=== PATIENT | female | born 1945 | race Caucasian/White ===

== ENCOUNTER 2016-03-12 17:33 | Emergency (ER) | payer OTHER ==
[~2016-03-12] VITALS: Ht 175.3 cm; Wt 100.0 kg
[~2016-03-12 17:33] MED LIST: 1-ME1LIQ PO; ADVAI500I PO; ATOR40TA PO; BACL20 PO; CARV6.25 PO; CLON.2 PO; FLAG500T PO; FURO20 PO; HYDRA50 PO; JANU100T PO; LEVA750T PO; LISI20 PO; LORTA5 PO; LOSA25 PO; PERC10TA27 PO; PLAV75TA PO; PRIL20CA PO; REST0.05 EACH EYE; TRIA.1%T TOP; Z.0.OXYGENDME NC
[2016-03-12 17:38] VITALS: BP 243/103; PULSE 66; RESP 28; TEMP 97.5; O2SAT 95
[2016-03-12 18:30] VITALS: BP 188/100; PULSE 56; RESP 20; O2SAT 96
[2016-03-12] MEDS ORDERED: LISI-515 PO (18:44)
[2016-03-12] MEDS ORDERED: BACL10TA PO (18:44)
[2016-03-12] MEDS ORDERED: PLAV75TA29 PO (18:44)
[2016-03-12] MEDS ORDERED: ADVA500A INH (18:44)
[2016-03-12] MEDS ORDERED: LIPI40TA PO (18:44)
[2016-03-12] MEDS ORDERED: FURO1TAB62 PO (18:44)
[2016-03-12] MEDS ORDERED: SITA1TAB2 PO (18:44)
[2016-03-12] MEDS ORDERED: CARV6.25 PO (18:44)
[2016-03-12] MEDS ORDERED: HYDR-3533 PO (18:44)
[2016-03-12] MEDS ORDERED: PRIL20CA9 PO (18:44)
[2016-03-12] MEDS ORDERED: PERC10TA27 PO (18:44)
[2016-03-12] MEDS ORDERED: LOSA25TA PO (18:44)
[2016-03-12] MEDS ORDERED: HYDR50TA15 PO (18:44)
[2016-03-12] MEDS ORDERED: AMLO10 PO (18:44)
[2016-03-12] MEDS ORDERED: CLON.2 PO (18:44)
[2016-03-12] MEDS ORDERED: REST0.05 EACH EYE (18:44)
[2016-03-12] MEDS ORDERED: cloNIDine HCL 0.2 MG TAB PO ONE (18:45)
[2016-03-12] MEDS ORDERED: ACETAMINOPHEN 325 MG TAB PO ONE (18:45)
[2016-03-12 19:18] LABS: AUTOMATED NEUTROPHIL # 5.2 TH/MM3 (1.8-7.7); BASOPHIL # 0.1 TH/MM3 (0-0.2); BASOPHIL % 0.7 % (0.0-2.0); EOSINOPHIL # 0.1 TH/MM3 (0-0.4); EOSINOPHIL % 1.4 % (0.0-4.0); HEMATOCRIT 44.1 % (35.0-46.0); HEMO FLAGS DIFF FINAL; LYMPH % 29.8 % (9.0-44.0); LYMPHOCYTE # 2.5 TH/MM3 (1.0-4.8); MEAN CELL VOLUME 91.4 FL (80.0-100.0); MEAN CORPUSCULAR HEMOGLOBIN 30.9 PG (27.0-34.0); MEAN CORPUSCULAR HGB CONC 33.7 % (32.0-36.0); MONO % 5.9 % (0.0-8.0); NEUT % 62.2 % (16.0-70.0); PLATELET COUNT 151 TH/MM3 (150-450); RED BLOOD COUNT 4.82 MIL/MM3 (4.00-5.30); RED CELL DISTRIBUTION WIDTH 12.7 % (11.6-17.2); WHITE BLOOD COUNT 8.4 TH/MM3 (4.0-11.0)
--- NOTE | 2016-03-12 19:23 | RADRPT ---
EXAM DATE/TIME: 03/12/2016 18:54 [place] COMPARISON: No previous studies available for comparison. INDICATIONS : Left hand pain. Skin complaint. MEDICAL HISTORY : None. SURGICAL HISTORY : None. ENCOUNTER: Initial ACUITY: 1 day PAIN SCORE: 7/10 LOCATION: Left upper extremity FINDINGS: Three view examination of the left hand demonstrates no soft tissue swelling, dislocation, or fractur e. The carpal bones appear intact. Degenerative osteoarthritic changes appear to be isolated to the first carpometacarpal articulation and there is either an os styloidium or old ulnar styloid fractur e injury. Bony mineralization is normal. CONCLUSION: 1. Degenerative osteoarthritic changes at the first CMC joint. 2. Os Styloidium versus old ulnar styloid fracture. No acute injury. Karl Dunacn MD on March 12, 2016 at 19:19 Board Certified Radiologist. This report was verified electronically.
[2016-03-12 19:38] VITALS: BP 185/95; PULSE 52; RESP 18; O2SAT 97
[2016-03-12 19:40] LABS: APTT (PATIENT) 27.9 SEC (24.3-30.1); INTERNATIONAL NORMALIZED RATIO 0.9 RATIO; PROTHROMBIN TIME - PATIENT 10.3 SEC (9.8-11.6)
--- NOTE | 2016-03-12 20:16 | PD ---
HPI Chief Complaint: Pain: Acute or Chronic Time Seen by Provider: 18:33 Travel History International Travel<30 days: No Contact w/Intl Traveler<30days: No Traveled to known affect area: No History of Present Illness HPI Patient is a 70 year old female who comes in complaining of a bruise to her left hand. She says she has had these "blood spots" often, but this one hurt, so she came in. She does not recall banging her hand on anything. She was noted to have high blood pressure in triage. She says she is not taking her blood pressure medications today. She is supposed to take it in the morning and at noon, but she says it makes her feel too tired. She denies any chest pain or shortness of breath at this time. PFSH Past Medical History Hx Anticoagulant Therapy: Yes (plavix) Arthritis: Yes Blood Disorders: No Anxiety: Yes Depression: No Cancer: No Cardiovascular Problems: Yes High Cholesterol: Yes Chest Pain: Yes Cerebrovascular Accident: Yes Diabetes: Yes Patient Takes Glucophage: No Diminished Hearing: No Gastrointestinal Disorders: Yes (DIVERTICULOSIS) GERD: No Genitourinary: No Headaches: Yes Hepatitis: No Hiatal Hernia: No Hypertension: Yes Immune Disorder: No Implanted Vascular Access Dvce: No Musculoskeletal: Yes (BACK PAIN) Neurologic: Yes (RESTLESS LEG SYNDROME) Psychiatric: No Reproductive: Yes (HYSTERECTOMY 20 YRS AGO) Respiratory: No Immunizations Current: Yes Migraines: No Myocardial Infarction: Yes Seizures: No Thyroid Disease: Yes Ulcer: No Influenza Vaccination: No Menopausal: Yes Past Surgical History AICD: No Appendectomy: No Arteriovenous Shunt: No Cholecystectomy: No Endocrine Surgery: Yes (THYROID SX) Gynecologic Surgery: Yes (HYSTERECTOMY 20YRS AGO) Hysterectomy: Yes Insulin Pump: No Joint Replacement: No Pacemaker: No Tonsillectomy: Yes Other Surgery: Yes Social History Alcohol Use: No Tobacco Use: Yes (1 PPD) Substance Use: No Allergies-Medications (Allergen,Severity, Reaction): Coded Allergies: Cultivated Oat Pollen (Unverified Allergy, Severe, 03/12/16) Dust (Unverified Allergy, Severe, 03/12/16) Peanut (Verified Allergy, Severe, 03/12/16) Aspirin (Unverified Allergy, Mild, 03/12/16) states it makes her stomach upset, but she can take it Egg Allergy (Unverified Allergy, Mild, 03/12/16) Codeine (Verified Adverse Reaction, Intermediate, NAUSEA, 03/12/16) Reported Meds & Prescriptions Reported Meds & Active Scripts Active Reported Percocet (Oxycodone-Acetaminophen) 10-325 mg Tab 1 Tab PO Q4H PRN Januvia (Sitagliptin Phosphate) 100 Mg Tab 100 Mg PO DAILY Prilosec (Omeprazole) 20 Mg Cap 20 Mg PO DAILY Losartan (Losartan Potassium) 25 Mg Tab 25 Mg PO DAILY Lisinopril 20 Mg Tab 20 Mg PO BID Lortab (Hydrocodone-Acetaminophen) 5-325 Mg Tab 1 Tab PO Q4H PRN Hydralazine (Hydralazine HCl) 50 Mg Tab 50 Mg PO TID Take with a meal Lasix (Furosemide) 20 Mg Tab 20 Mg PO DAILY Restasis Opth Drops (Cyclosporine Opth Drops) 0.05% Emul 1 Drop EACH EYE BID Plavix (Clopidogrel Bisulfate) 75 Mg Tab 75 Mg PO DAILY Catapres (Clonidine) 0.2 Mg Tab 0.2 Mg PO TID Coreg (Carvedilol) 6.25 Mg Tab 6.25 Mg PO BID Baclofen 10 Mg Tab 10 Mg PO TID PRN Lipitor (Atorvastatin Calcium) 40 Mg Tab 40 Mg PO HS Advair Diskus Inh (Fluticasone-Salmeterol Inh) 500-50 Mcg/Blist Aer 1 Puff INH BID Rinse mouth after use. Norvasc (Amlodipine Besylate) 10 Mg Tab 10 Mg PO DAILY Review of Systems General / Constitutional: No: Fever, Chills Eyes: No: Blurred Vision HENT: No: Headaches Cardiovascular: No: Chest Pain or Discomfort Respiratory: No: Shortness of Breath Gastrointestinal: No: Nausea, Abdominal Pain Musculoskeletal: Positive: Pain, No: Edema Skin: Positive Change in Pigmentation Neurologic: No: Weakness, Dizziness Physical Exam Narrative GENERAL: Awake and alert in no acute distress. SKIN: Warm and dry. The trauma to the dorsal surface of the left hand. HEAD: Atraumatic. Normocephalic. EYES: Pupils equal and round. No scleral icterus. NECK: Trachea midline. No JVD. CARDIOVASCULAR: Regular rate and rhythm. No murmur appreciated. RESPIRATORY: No accessory muscle use. Clear to auscultation. Breath sounds equal bilaterally. MUSCULOSKELETAL: No obvious deformities. No clubbing. No cyanosis. No edema. No tenderness to palpation over the left hand. Radial pulses intact. NEUROLOGICAL: Awake and alert. No obvious cranial nerve deficits. Motor grossly within normal limits. Normal speech. Data Data Last Documented VS Vital Signs Date Time Temp Pulse Resp B/P Pulse Ox O2 Delivery O2 Flow Rate FiO2 03/12/16 19:38 52 18 185/95 97 Room Air 03/12/16 17:38 97.5 Orders Complete Blood Count With Diff (03/12/16 18:43) Act Partial Throm Time (Ptt) (03/12/16 18:43) Prothrombin Time / Inr (Pt) (03/12/16 18:43) Hand, Complete ([id number]) (03/12/16 ) Acetaminophen (Tylenol) (03/12/16 18:45) Clonidine (Catapres) (03/12/16 18:45) Labs Laboratory Tests Test 03/12/16 19:00 White Blood Count 8.4 TH/MM3 Red Blood Count 4.82 MIL/MM3 Hemoglobin 14.9 GM/DL Hematocrit 44.1 % Mean Corpuscular Volume 91.4 FL Mean Corpuscular Hemoglobin 30.9 PG Mean Corpuscular Hemoglobin 33.7 % Concent Red Cell Distribution Width 12.7 % Platelet Count 151 TH/MM3 Mean Platelet Volume 10.1 FL Neutrophils (%) (Auto) 62.2 % Lymphocytes (%) (Auto) 29.8 % Monocytes (%) (Auto) 5.9 % Eosinophils (%) (Auto) 1.4 % Basophils (%) (Auto) 0.7 % Neutrophils # (Auto) 5.2 TH/MM3 Lymphocytes # (Auto) 2.5 TH/MM3 Monocytes # (Auto) 0.5 TH/MM3 Eosinophils # (Auto) 0.1 TH/MM3 Basophils # (Auto) 0.1 TH/MM3 CBC Comment DIFF FINAL Differential Comment Prothrombin Time 10.3 SEC Prothromb Time International 0.9 RATIO Ratio Activated Partial 27.9 SEC Thromboplast Time MDM Medical Decision Making Medical Screen Exam Complete: Yes Emergency Medical Condition: Yes Medical Record Reviewed: Yes Differential Diagnosis Hematoma versus fracture versus coagulopathy Narrative Course Patient is a 70-year-old female comes in complaining of bruising to her left hand. Exam shows a hematoma on the dorsal surface of the hand. X-ray obtained of the hand shows no acute abnormalities. Labs sent to check platelet count and coagulation panel. These are all within normal limits. Patient given Tylenol for pain. Given a dose of her clonidine. Patient's blood pressure improved somewhat with the clonidine. Patient advised to go home and take her blood pressure medications. Advised follow-up with her doctor. Advised to be careful putting any sort of pressure on her skin as she will bleed due to taking aspirin and Plavix. Patient is comfortable discharge at this time. Advised to return as needed for any worsening symptoms. Diagnosis Primary Impression: Hematoma Patient Instructions: General Instructions, Hematoma (ED) Additional Instructions: Take your blood pressure medication. Follow up with your doctor for your blood pressure. Return to the ED as needed for any worsening symptoms. Disposition: 01 DISCHARGE HOME Condition: Stable Nancy Tobin MD Mar 12, 2016 20:16
== END 2016-03-12 20:33 | disposition home or self-care (01) ==
LOC: NEPA 17:33
DX: S60.222A Contusion of left hand, initial encounter (principal); Z79.01 Long term (current) use of anticoagulants; E11.9 Type 2 diabetes mellitus without complications; I10 Essential (primary) hypertension; E78.00 Pure hypercholesterolemia, unspecified; I25.2 Old myocardial infarction; M19.90 Unspecified osteoarthritis, unspecified site; Z86.73 Personal history of transient ischemic attack (TIA), and cerebral infarction without residual deficits; F17.210 Nicotine dependence, cigarettes, uncomplicated; Z79.4 Long term (current) use of insulin; X58.XXXA Exposure to other specified factors, initial encounter; Y93.9 Activity, unspecified; Y92.9 Unspecified place or not applicable; Y99.9 Unspecified external cause status
CPT/HCPCS: 73130; 85025; 85610; 85730; 99283

== ENCOUNTER 2016-04-03 13:51 | Inpatient (IN) | payer OTHER, MEDICARE ==
[~2016-04-03] VITALS: Ht 175.3 cm; Wt 100.0 kg
[~2016-04-03 13:51] MED LIST changes: -1-ME1LIQ PO; +ADVA500A INH; -ADVAI500I PO; +AMLO10 PO; -ATOR40TA PO; +BACL10TA PO; -BACL20 PO; -FLAG500T PO; +FURO1TAB62 PO; -FURO20 PO; +HYDR-3533 PO; +HYDR50TA15 PO; -HYDRA50 PO; -JANU100T PO; -LEVA750T PO; +LIPI40TA PO; +LISI-515 PO; -LISI20 PO; -LORTA5 PO; -LOSA25 PO; +LOSA25TA PO; -PLAV75TA PO; +PLAV75TA29 PO; -PRIL20CA PO; +PRIL20CA9 PO; +SITA1TAB2 PO; -TRIA.1%T TOP; -Z.0.OXYGENDME NC
[2016-04-03 13:53] VITALS: BP 245/109; PULSE 76; RESP 20; TEMP 98.3; O2SAT 94
[2016-04-03 14:22] VITALS: RESP 18; O2SAT 93
--- NOTE | 2016-04-03 14:27 | PD ---
HPI Chief Complaint: Skin Problem Time Seen by Provider: 14:09 Travel History International Travel<30 days: No Contact w/Intl Traveler<30days: No Traveled to known affect area: No History of Present Illness HPI 71-year-old female came to the emergency room with history of left breast painful swelling that is now draining. This been going on for past 3-4 days. She is extremely tender to touch. She's been getting chills. No history of nausea vomiting. Patient has history of diabetes. She says she's been taking her medications like she supposed to and she has checked her blood sugar level but does not remember it because she has poor memory. Patient had significant hypertension in triage. She says she has taken her medications in the morning but she was uncomfortable from the pain. [facility] Past Medical History Narrative Medical List of her past medical history as reviewed from the nursing note. Hx Anticoagulant Therapy: Yes (PLAVIX) Arthritis: Yes Blood Disorders: No Anxiety: Yes Depression: No Cancer: No Cardiovascular Problems: Yes High Cholesterol: Yes Chest Pain: Yes Cerebrovascular Accident: Yes Diabetes: Yes Patient Takes Glucophage: Yes Diminished Hearing: No Gastrointestinal Disorders: Yes (DIVERTICULOSIS) GERD: No Genitourinary: No Headaches: Yes Hepatitis: No Hiatal Hernia: No Hypertension: Yes Immune Disorder: No Implanted Vascular Access Dvce: No Musculoskeletal: Yes (BACK PAIN) Neurologic: Yes (RESTLESS LEG SYNDROME) Psychiatric: No Reproductive: Yes (HYSTERECTOMY 20 YRS AGO) Respiratory: No Immunizations Current: Yes Migraines: No Myocardial Infarction: Yes Seizures: No Thyroid Disease: Yes Ulcer: No ?: Not Menopausal: Yes : 2 Para: 2 Past Surgical History AICD: No Appendectomy: No Arteriovenous Shunt: No Cholecystectomy: No Endocrine Surgery: Yes (THYROID SX) Gynecologic Surgery: Yes (HYSTERECTOMY 20YRS AGO) Hysterectomy: Yes Insulin Pump: No Joint Replacement: No Pacemaker: No Tonsillectomy: Yes Other Surgery: Yes Social History Alcohol Use: No Tobacco Use: Yes (1 PPD) Substance Use: No Allergies-Medications (Allergen,Severity, Reaction): Coded Allergies: Cultivated Oat Pollen (Verified Allergy, Severe, 04/03/16) Dust (Verified Allergy, Severe, 04/03/16) Peanut (Verified Allergy, Severe, 04/03/16) Aspirin (Verified Allergy, Mild, 04/03/16) states it makes her stomach upset, but she can take it Egg Allergy (Verified Allergy, Mild, 04/03/16) Codeine (Verified Adverse Reaction, Intermediate, NAUSEA, 04/03/16) Comments List of allergies reviewed from the nursing note. Reported Meds & Prescriptions Reported Meds & Active Scripts Active Reported Alendronate (Alendronate Sodium) 70 Mg Tab 70 Mg PO Q7D Sertraline (Sertraline HCl) 25 Mg Tab 25 Mg PO DAILY Donepezil 23 Mg Tab 23 Mg PO HS Do not split, crush or chew. Butalbital-Acetaminophen 50-325 Mg Tab 1 Tab PO Q8HR PRN Do not exceed 6 tablets per day. Clonidine (Clonidine HCl) 0.2 Mg Tab 0.2 Mg PO TID Hydrochlorothiazide 25 Mg Tab 25 Mg PO DAILY Januvia (Sitagliptin Phosphate) 100 Mg Tab 100 Mg PO DAILY Prilosec (Omeprazole) 20 Mg Cap 20 Mg PO DAILY Losartan (Losartan Potassium) 25 Mg Tab 25 Mg PO DAILY Lisinopril 20 Mg Tab 20 Mg PO BID Hydralazine (Hydralazine HCl) 50 Mg Tab 50 Mg PO TID Take with a meal Lasix (Furosemide) 20 Mg Tab 20 Mg PO DAILY Restasis Opth Drops (Cyclosporine Opth Drops) 0.05% Emul 1 Drop EACH EYE BID Plavix (Clopidogrel Bisulfate) 75 Mg Tab 75 Mg PO DAILY Catapres (Clonidine) 0.2 Mg Tab 0.2 Mg PO TID Coreg (Carvedilol) 6.25 Mg Tab 6.25 Mg PO BID Baclofen 10 Mg Tab 10 Mg PO TID PRN Lipitor (Atorvastatin Calcium) 40 Mg Tab 40 Mg PO HS Advair Diskus Inh (Fluticasone-Salmeterol Inh) 500-50 Mcg/Blist Aer 1 Puff INH BID Rinse mouth after use. Norvasc (Amlodipine Besylate) 10 Mg Tab 10 Mg PO DAILY Narrative Medication List of her home medications reviewed from the nursing note. Review of Systems Except as stated in HPI: all other systems reviewed are Neg Physical Exam Narrative GENERAL: Awake, alert, moderate distress SKIN: Warm and dry. Left breast at the inferior aspect at 5 o'clock position there is an ulcerated, macerated, necrotic skin lesion that has some discharge. There is surrounding erythema and extremely tender to touch. HEAD: Atraumatic. Normocephalic. EYES: Pupils equal and round. No scleral icterus. No injection or drainage. ENT: No nasal bleeding or discharge. Mucous membranes pink and moist. NECK: Trachea midline. No JVD. CARDIOVASCULAR: Regular rate and rhythm. No murmur appreciated. RESPIRATORY: No accessory muscle use. Clear to auscultation. Breath sounds equal bilaterally. GASTROINTESTINAL: Abdomen soft, non-tender, nondistended. Hepatic and splenic margins not palpable. MUSCULOSKELETAL: No obvious deformities. No clubbing. No cyanosis. No edema. NEUROLOGICAL: Awake and alert. No obvious cranial nerve deficits. Motor grossly within normal limits. Normal speech. PSYCHIATRIC: Appropriate mood and affect; insight and judgment normal. Data Data Last Documented VS Vital Signs Date Time Temp Pulse Resp B/P Pulse Ox O2 Delivery O2 Flow Rate FiO2 04/03/16 14:22 18 93 Room Air 04/03/16 13:53 98.3 76 245/109 Orders Complete Blood Count With Diff (04/03/16 14:45) Comprehensive Metabolic Panel (04/03/16 14:45) Lactic Acid Sepsis Protocol (04/03/16 14:45) Urinalysis - C+S If Indicated (04/03/16 14:45) Blood Culture (04/03/16 14:45) Wound Culture And Gram Stain (04/03/16 14:45) Blood Glucose (04/03/16 14:45) Ecg Monitoring (04/03/16 14:45) Iv Access Insert/Monitor (04/03/16 14:45) Oximetry (04/03/16 14:45) Oxygen Administration (04/03/16 14:45) Piperacil-Tazo 4.5 Gm Premix (Zosyn 4.5 (04/03/16 14:45) Vancomycin Inj (Vancomycin Inj) (04/03/16 14:45) Sodium Chlor 0.9% 1000 Ml Inj (Ns 1000 M (04/03/16 14:45) Clonidine (Catapres) (04/03/16 14:45) Morphine Inj (Morphine Inj) (04/03/16 14:45) Ondansetron Inj (Zofran Inj) (04/03/16 14:45) Us Breast Unilateral (04/03/16 ) Diphenhydramine Inj (Benadryl Inj) (04/03/16 15:30) Diet Heart Healthy (04/03/16 Dinner) Admit Order (Ed Use Only) (04/03/16 17:11) Labs Laboratory Tests Test 04/03/16 14:50 White Blood Count 8.9 TH/MM3 Red Blood Count 4.69 MIL/MM3 Hemoglobin 14.2 GM/DL Hematocrit 41.5 % Mean Corpuscular Volume 88.4 FL Mean Corpuscular Hemoglobin 30.3 PG Mean Corpuscular Hemoglobin 34.3 % Concent Red Cell Distribution Width 12.3 % Platelet Count 168 TH/MM3 Mean Platelet Volume 10.4 FL Neutrophils (%) (Auto) 65.1 % Lymphocytes (%) (Auto) 26.6 % Monocytes (%) (Auto) 7.3 % Eosinophils (%) (Auto) 0.7 % Basophils (%) (Auto) 0.3 % Neutrophils # (Auto) 5.8 TH/MM3 Lymphocytes # (Auto) 2.4 TH/MM3 Monocytes # (Auto) 0.7 TH/MM3 Eosinophils # (Auto) 0.1 TH/MM3 Basophils # (Auto) 0.0 TH/MM3 CBC Comment DIFF FINAL Differential Comment Sodium Level 138 MEQ/L Potassium Level 3.7 MEQ/L Chloride Level 102 MEQ/L Carbon Dioxide Level 27.3 MEQ/L Anion Gap 9 MEQ/L Blood Urea Nitrogen 16 MG/DL Creatinine 0.79 MG/DL Estimat Glomerular Filtration 72 ML/MIN Rate Random Glucose 94 MG/DL Lactic Acid Level 1.2 mmol/L Calcium Level 10.4 MG/DL Total Bilirubin 0.5 MG/DL Aspartate Amino Transf 10 U/L (AST/SGOT) Alanine Aminotransferase 20 U/L (ALT/SGPT) Alkaline Phosphatase 85 U/L Total Protein 7.4 GM/DL Albumin 3.7 GM/DL [facility] Medical Decision Making Medical Screen Exam Complete: Yes Emergency Medical Condition: Yes Medical Record Reviewed: Yes Differential Diagnosis Cellulitis, mastitis, breast abscess, breast cancer Narrative Course 4:37 PM blood test results are back and within normal limits. Patient is getting IV antibiotics including Zosyn and vancomycin. By the vancomycin was almost done she started having itching and some redness of her entire body. She was given 50 mg of Benadryl. There was no respiratory distress. I have ordered an ultrasound of the breast and waiting for the test to be done and resulted. 5:12 PM to [facility] report is back and shows a possible phlegmonous mass adjacent to the lesion. Given the fact the patient is diabetic and the lesion appears to be severe I would like to admit her for more IV antibiotics as well as a possible surgical consult. The hospitalist has accepted the patient. I discussed this with the patient and her family and they are agreeable to the plan. Procedures EKG Prior to Arrival: No Diagnosis Primary Impression: Mastitis Additional Impression: Ulcer Admitting Information Admitting Physician Requests: Tesfaye Barahona MD Apr 03, 2016 14:27
[2016-04-03] MEDS ORDERED: BUTA1TAB30 PO (14:30)
[2016-04-03] MEDS ORDERED: DONE1TAB63 PO (14:30)
[2016-04-03] MEDS ORDERED: SERT25TA83 PO (14:30)
[2016-04-03] MEDS ORDERED: ALEN1TAB48 PO (14:30)
[2016-04-03] MEDS ORDERED: HYDR25TA5 PO (14:30)
[2016-04-03] MEDS ORDERED: CLON0.2T PO (14:30)
[2016-04-03] MEDS ORDERED: VANCOMYCIN INJ 1,000 MG in SODIUM CHLOR 0.9% 250 ML INJ 250 ML IV STA (14:45)
[2016-04-03] MEDS ORDERED: cloNIDine HCL 0.1 MG TAB PO ONE (14:45)
[2016-04-03] MEDS ORDERED: PIPERACIL-TAZO 4.5 GM PREMIX 100 ML IV STA (14:45)
[2016-04-03] MEDS ORDERED: MORPHINE SULFATE 4 MG/ML INJ IV PUSH ONE (14:45)
[2016-04-03] MEDS ORDERED: ONDANSETRON HCL 4 MG/2 ML VIAL IV PUSH ONE (14:45)
[2016-04-03] MEDS ORDERED: SODIUM CHLOR 0.9% 1000 ML INJ 1,000 ML IV ONE (14:45)
[2016-04-03] MEDS ORDERED: diphenhydrAMINE HCL 50 MG/ML VIAL IV PUSH ONE (15:30)
[2016-04-03 15:41] LABS: AUTOMATED NEUTROPHIL # 5.8 TH/MM3 (1.8-7.7); BASOPHIL % 0.3 % (0.0-2.0); EOSINOPHIL # 0.1 TH/MM3 (0-0.4); EOSINOPHIL % 0.7 % (0.0-4.0); HEMATOCRIT 41.5 % (35.0-46.0); HEMO FLAGS DIFF FINAL; LYMPH % 26.6 % (9.0-44.0); LYMPHOCYTE # 2.4 TH/MM3 (1.0-4.8); MEAN CELL VOLUME 88.4 FL (80.0-100.0); MEAN CORPUSCULAR HEMOGLOBIN 30.3 PG (27.0-34.0); MEAN CORPUSCULAR HGB CONC 34.3 % (32.0-36.0); MONO % 7.3 % (0.0-8.0); NEUT % 65.1 % (16.0-70.0); PLATELET COUNT 168 TH/MM3 (150-450); RED BLOOD COUNT 4.69 MIL/MM3 (4.00-5.30); RED CELL DISTRIBUTION WIDTH 12.3 % (11.6-17.2); WHITE BLOOD COUNT 8.9 TH/MM3 (4.0-11.0)
[2016-04-03 16:00] LABS: ALT (GPT) 20 U/L (10-53); ANION GAP 9 MEQ/L (5-15); AST (GOT) 10 U/L (15-37); BICARBONATE 27.3 MEQ/L (21.0-32.0); BLOOD UREA NITROGEN 16 MG/DL (7-18); CHLORIDE 102 MEQ/L (98-107); GLOMERULAR FILTRATION RATE 72 ML/MIN (>89); POTASSIUM 3.7 MEQ/L (3.5-5.1); SODIUM (NA) 138 MEQ/L (136-145)
[2016-04-03 16:03] LABS: ALKALINE PHOSPHATASE 85 U/L (45-117); TOTAL BILIRUBIN ADULT 0.5 MG/DL (0.2-1.0)
--- NOTE | 2016-04-03 17:05 | HHI.HP ---
HPI Service [facility] Primary Care Physician Non-Staff Admission Diagnosis Diagnoses: (1) Abscess of left breast (2) Mastitis (3) Hypertensive urgency (4) DM2 (diabetes mellitus, type 2) (5) Cardiomyopathy (6) CAD (coronary artery disease) Chief Complaint: Left breast swelling and pain Travel History International Travel<30 Days: No Contact w/Intl Traveler <30 Da: No Traveled to Known Affected Are: No History of Present Illness 71 year-old female with a history of diabetes type 2, hypertension and hyperlipidemia presented to the ED for evaluation of 1 week history of left painful breast swelling rated 8/10 in intensity and now with drainage over the past 4 days associated with subjective fever. Patient reports that about a week ago she had a small bump/lump on the left lateral lower quadrant for breast which she scratched. Few days after, she notice worsening erythema and increased swelling and significant tenderness to palpation. It proceeded to become more painful with some form of necrosis in the past 4 days she started noticing discharge of the purulent material. However over the past 24 hours, the pain became so unbearable, therefore patient decided to come to the hospital. She denies any insect bites or trauma. Patient states, about 3-4 years ago she has a normal mammogram. Review of Systems Other 12 systems reviewed and are negative except for the one mentioned in the history of present illness Past Family Social History Past Medical History Hypertension Hyperlipidemia Renal artery stenosisstatus post stenting in 2013 Diabetes Past Surgical History Lap cholecystectomy 2016 Hysterectomy Thyroid surgery Back surgery Reported Medications Alendronate (Alendronate Sodium) 70 Mg Tab 70 Mg PO Q7D Sertraline (Sertraline HCl) 25 Mg Tab 25 Mg PO DAILY Donepezil 23 Mg Tab 23 Mg PO HS Do not split, crush or chew. Butalbital-Acetaminophen 50-325 Mg Tab 1 Tab PO Q8HR PRN Do not exceed 6 tablets per day. Clonidine (Clonidine HCl) 0.2 Mg Tab 0.2 Mg PO TID Hydrochlorothiazide 25 Mg Tab 25 Mg PO DAILY Januvia (Sitagliptin Phosphate) 100 Mg Tab 100 Mg PO DAILY Prilosec (Omeprazole) 20 Mg Cap 20 Mg PO DAILY Losartan (Losartan Potassium) 25 Mg Tab 25 Mg PO DAILY Lisinopril 20 Mg Tab 20 Mg PO BID Hydralazine (Hydralazine HCl) 50 Mg Tab 50 Mg PO TID Take with a meal Lasix (Furosemide) 20 Mg Tab 20 Mg PO DAILY Restasis Opth Drops (Cyclosporine Opth Drops) 0.05% Emul 1 Drop EACH EYE BID Plavix (Clopidogrel Bisulfate) 75 Mg Tab 75 Mg PO DAILY Catapres (Clonidine) 0.2 Mg Tab 0.2 Mg PO TID Coreg (Carvedilol) 6.25 Mg Tab 6.25 Mg PO BID Baclofen 10 Mg Tab 10 Mg PO TID PRN Lipitor (Atorvastatin Calcium) 40 Mg Tab 40 Mg PO HS Advair Diskus Inh (Fluticasone-Salmeterol Inh) 500-50 Mcg/Blist Aer 1 Puff INH BID Rinse mouth after use. Norvasc (Amlodipine Besylate) 10 Mg Tab 10 Mg PO DAILY Allergies: Coded Allergies: Cultivated Oat Pollen (Verified Allergy, Severe, 04/03/16) Dust (Verified Allergy, Severe, 04/03/16) Peanut (Verified Allergy, Severe, 04/03/16) Aspirin (Verified Allergy, Mild, 04/03/16) states it makes her stomach upset, but she can take it Egg Allergy (Verified Allergy, Mild, 04/03/16) Codeine (Verified Adverse Reaction, Intermediate, NAUSEA, 04/03/16) Family History Patient was adopted Social History Alcohol Use: No Tobacco Use: Yes (1 PPD) Substance Use: No Physical Exam Vital Signs Vital Signs Date Time Temp Pulse Resp B/P Pulse Ox O2 Delivery O2 Flow Rate FiO2 04/03/16 13:53 98.3 76 20 245/109 94 Room Air Physical Exam GENERAL: This is a well-nourished, well-developed patient, in no apparent distress. SKIN: Left breast at left lateral lower quadrant at 5 o'clock position there is an ulcerated, macerated, necrotic skin lesion with some discharge as well as surrounding erythema and extremely tender to touch. HEAD: Atraumatic. Normocephalic. No temporal or scalp tenderness. EYES: Pupils equal round and reactive. Extraocular motions intact. No scleral icterus. No injection or drainage. ENT: Nose without bleeding, purulent drainage or septal hematoma. Throat without erythema, tonsillar hypertrophy or exudate. Uvula midline. Airway patent. NECK: Trachea midline. No JVD or lymphadenopathy. Supple, nontender, no meningeal signs. CARDIOVASCULAR: Regular rate and rhythm without murmurs, gallops, or rubs. RESPIRATORY: Clear to auscultation. Breath sounds equal bilaterally. No wheezes , rales, or rhonchi. GASTROINTESTINAL: Abdomen soft, non-tender, nondistended. No hepato-splenomegaly , or palpable masses. No guarding. MUSCULOSKELETAL: Extremities without clubbing, cyanosis, or edema. No joint tenderness, effusion, or edema noted. No calf tenderness. Negative Homans sign bilaterally. NEUROLOGICAL: Awake and alert. Cranial nerves II through XII intact. Motor and sensory grossly within normal limits. Five out of 5 muscle strength in all muscle groups. Normal speech. Laboratory Laboratory Tests Test 04/03/16 14:50 White Blood Count 8.9 Red Blood Count 4.69 Hemoglobin 14.2 Hematocrit 41.5 Mean Corpuscular Volume 88.4 Mean Corpuscular Hemoglobin 30.3 Mean Corpuscular Hemoglobin 34.3 Concent Red Cell Distribution Width 12.3 Platelet Count 168 Mean Platelet Volume 10.4 Neutrophils (%) (Auto) 65.1 Lymphocytes (%) (Auto) 26.6 Monocytes (%) (Auto) 7.3 Eosinophils (%) (Auto) 0.7 Basophils (%) (Auto) 0.3 Neutrophils # (Auto) 5.8 Lymphocytes # (Auto) 2.4 Monocytes # (Auto) 0.7 Eosinophils # (Auto) 0.1 Basophils # (Auto) 0.0 CBC Comment DIFF FINAL Differential Comment Sodium Level 138 Potassium Level 3.7 Chloride Level 102 Carbon Dioxide Level 27.3 Anion Gap 9 Blood Urea Nitrogen 16 Creatinine 0.79 Estimat Glomerular Filtration 72 Rate Random Glucose 94 Lactic Acid Level 1.2 Calcium Level 10.4 Total Bilirubin 0.5 Aspartate Amino Transf 10 (AST/SGOT) Alanine Aminotransferase 20 (ALT/SGPT) Alkaline Phosphatase 85 Total Protein 7.4 Albumin 3.7 Date/Time Procedure Status Source Growth 04/03/16 14:55 Aerobic Blood Culture Received Blood Peripheral Pending 04/03/16 14:55 Anaerobic Blood Culture Received Blood Peripheral Pending 04/03/16 14:35 Gram Stain Received Wound Breast Pending 04/03/16 14:35 Wound Culture Received Wound Breast Pending Result Diagram: 04/03/16 1450 04/03/16 1450 Imaging Last Impressions Breast Ultrasound 04/03/16 0000 Signed Impressions: Service Date/Time: Sunday, April 03, 2016 15:24 - CONCLUSION: 1. Nonspecific and hypervascular 3.6 x 4.4 x 1.3 cm mass in the superficial left breast at the 6: 2. 00 position 5 cm from the nipple. Differential diagnosis includes a phlegmonous mass. No definite drainable fluid collections. Close followup recommended to exclude neoplasm. Vishnu Kaufman MD Assessment and Plan Problem List: (1) Abscess of left breast ICD Code: N61.1 Status: Acute (2) Mastitis ICD Code: N61.0 Status: Acute (3) Hypertensive urgency ICD Code: I10 Status: Acute (4) Cardiomyopathy ICD Code: I42.9 Status: Acute (5) CAD (coronary artery disease) ICD Code: I25.10 Status: Acute (6) DM2 (diabetes mellitus, type 2) ICD Code: E11.9 Status: Acute Assessment and Plan 71 year-old female with Left breast abscess/mastitis: Left breast ultrasound noted and reviewed by me with finding of Nonspecific and hypervascular 3.6 x 4.4 x 1.3 cm mass in the superficial left breast. Status post Zosyn and vancomycin in ED however patient had an allergic reaction to vancomycin. Will continue with Zosyn and starts clindamycin IV as well as Flagyl. Monitor cultures report. May consider consultation from surgery for further evaluation for possible debridement/drainage. Outpatient mammogram in the setting of left breast abscess to rule out breast cancer. Hypertensive emergency: May be secondary to poorly controlled pain versus noncompliance, resume outpatient medications however consider starting patient on Cardene drip if no improvement Diabetes type 2: Start insulin sliding scale with fingerstick blood glucose monitoring and resume outpatient medication. Check hemoglobin A1c Hyperlipidemia: Resume Lipitor Dementia: Resume Namenda CAD/cardiomyopathy: Resume outpatient medications DVT prophylaxis: Bilateral SCDs Code Status Full code Discussed Condition With Patient, son, ED physician Physician Certification 2 Midnight Certification Type: Admission for Inpatient Services Order for Inpatient Services The services are ordered in accordance with Medicare regulations or non- Medicare payer requirements, as applicable. In the case of services not specified as inpatient-only, they are appropriately provided as inpatient services in accordance with the 2-midnight benchmark. Estimated LOS (days): 2 days is the estimated time the patient will need to remain in the hospital, assuming treatment plan goals are met and no additional complications. Post-Hospital Plan: Not yet determined Virgil Sullivan MD Apr 03, 2016 17:05
--- NOTE | 2016-04-03 17:07 | RADRPT ---
EXAM DATE/TIME: 04/03/2016 15:24 [facility] COMPARISON: No previous studies available for comparison. INDICATIONS : Palpable mass. MEDICAL HISTORY : Myocardial infarction. Hypercholesterolemia. Diverticulosis. Thyroid disease. Restless leg syndrome. Cerebrovascular accident. Headaches. Chest pain. Hypertension. Arthritis. Urinary tract infections. O steoporosis. Diabetes. Anxiety. Anticoagulant therapy, Plavix. SURGICAL HISTORY : Tonsillectomy. Hysterectomy. Lumbar back surgery. Thyroid surgery. ENCOUNTER: Initial ACUITY: 1 week PAIN SCORE: 10/10 LOCATION: Left breast. FINDINGS: Sonographic evaluation of the left breast reveals a superficial complex hypervascular mass measuring up to 3.6 x 4.4 x 1.2 cm. Surrounding tissue is edematous and hypervascular as well. This probably re presents a phlegmonous mass without definite drainable fluid collection. Other etiologies not exclude d. Close follow recommended. CONCLUSION: 1. Nonspecific and hypervascular 3.6 x 4.4 x 1.3 cm mass in the superficial left breast at the 6: 2. 00 position 5 cm from the nipple. Differential diagnosis includes a phlegmonous mass. No definite drainable fluid collections. Close followup recommended to exclude neoplasm. Vishnu Kaufman MD on April 03, 2016 at 17:03 Board Certified Radiologist. This report was verified electronically.
[2016-04-03] MEDS ORDERED: DOCUSATE SODIUM 100 MG CAP PO PRN (17:30)
[2016-04-03] MEDS ORDERED: SODIUM CHLORIDE 0.9% FLUSH 5 ML FLUSH FLUSH PRN (17:30)
[2016-04-03] MEDS ORDERED: MORPHINE SULFATE 4 MG/ML INJ IV PRN (17:30)
[2016-04-03] MEDS ORDERED: ENALAPRILAT 1.25 MG/ML VIAL IV PUSH PRN (17:30)
[2016-04-03] MEDS ORDERED: ONDANSETRON HCL 4 MG/2 ML VIAL IVP PRN (17:30)
[2016-04-03] MEDS ORDERED: BUTALBITAL ACETAMINOPHEN PO PRN (17:30)
[2016-04-03] MEDS ORDERED: NALOXONE HCL 0.4 MG/ML AMP IV PRN (17:30)
[2016-04-03] MEDS ORDERED: MAGNESIUM HYDROXIDE SUSP 30 ML CUP PO PRN (17:45)
[2016-04-03] MEDS ORDERED: DEXTROSE 50% IN WATER 50 ML VIAL(D50) IV PUSH PRN (17:45)
[2016-04-03] MEDS ORDERED: GLUCAGON 1 MG/ML VIAL OTHER PRN (17:45)
[2016-04-03] MEDS ORDERED: BISACODYL 10 MG SUPP PR PRN (17:45)
[2016-04-03] MEDS ORDERED: diphenhydrAMINE HCL 25 MG CAP PO PRN (17:45)
[2016-04-03 18:00] VITALS: BP 175/82; PULSE 55; RESP 19; O2SAT 93
[2016-04-03] MEDS ORDERED: PILL SPLITTER OTHER PRN (18:15)
[2016-04-03] MEDS: hydrALAZINE HCL 50 MG TAB PO SCH (18:18)
[2016-04-03] MEDS: PIPERACIL-TAZO 3.375 GM PREMIX 50 ML IV SCH (18:18)
[2016-04-03] MEDS: cloNIDine HCL 0.2 MG TAB PO SCH (18:18)
[2016-04-03] MEDS: ACETAMINOPHEN/HYDROcodone 325 MG/5 MG TAB PO PRN (18:18)
[2016-04-03] MEDS ORDERED: BUTALBITAL PO PRN (18:30)
[2016-04-03] MEDS ORDERED: ACETAMINOPHEN PO PRN (18:30)
[2016-04-03] MEDS: CLINDAMYCIN INJ 600 MG in SODIUM CHLORIDE 0.9% INJ 100 ML IV SCH (20:19)
[2016-04-03 21:00] VITALS: BP 160/70; PULSE 63; RESP 21; TEMP 97.3; O2SAT 94
[2016-04-03] MEDS: INSULIN ASPART SUPPLEMENTAL SCALE SQ SCH (21:00)
[2016-04-03] MEDS ORDERED: NON-FORMULARY DRUG (Fluticasone-Salmeterol Inh (Advair Diskus Inh) 1 PUFF) INH SCH (21:00)
[2016-04-03] MEDS ORDERED: CYCLOSPORINE OPTH EACH EYE SCH (21:00)
[2016-04-03] MEDS ORDERED: [UNRECOGNIZED DRUG - OTHER] EACH EYE SCH (21:00)
[2016-04-03] MEDS: LACTOBACILLUS ACIDOPHILUS TAB PO SCH (22:36)
[2016-04-03] MEDS: SODIUM CHLORIDE 0.9% FLUSH 5 ML FLUSH FLUSH SCH (22:36)
[2016-04-03] MEDS: ACETAMINOPHEN 325 MG TAB PO PRN (22:37)
[2016-04-03] MEDS: ATORVASTATIN 40 MG TAB PO SCH (22:37)
[2016-04-03] MEDS: CARVEDILOL 6.25 MG TAB PO SCH (22:38)
[2016-04-03] MEDS: LISINOPRIL 20 MG TAB PO SCH (22:38)
[2016-04-03] MEDS: DONEPEZIL HCL 23 MG TAB PO SCH (22:59)
[2016-04-03] MEDS: metroNIDAZOLE 500 MG INJ 100 ML IV SCH (22:59)
[2016-04-03] MEDS: BUDESONIDE-FORMOTEROL 160/4.5 MCG INHALER INH SCH (22:59)
[2016-04-04] VITALS: BP 131/64; PULSE 59; RESP 19; TEMP 97.1; O2SAT 92
[2016-04-04] MEDS: PIPERACIL-TAZO 3.375 GM PREMIX 50 ML IV SCH ×4 (01:06→18:39)
[2016-04-04] MEDS: CLINDAMYCIN INJ 600 MG in SODIUM CHLORIDE 0.9% INJ 100 ML IV SCH ×5 (01:07→23:43)
[2016-04-04 04:00] VITALS: BP 128/60; PULSE 60; RESP 20; TEMP 99.7; O2SAT 92
[2016-04-04] MEDS: metroNIDAZOLE 500 MG INJ 100 ML IV SCH ×3 (04:44→21:30)
[2016-04-04] MEDS: ACETAMINOPHEN/HYDROcodone 325 MG/7.5 MG TAB PO PRN ×2 (04:50→21:43)
[2016-04-04 05:01] LABS: AUTOMATED NEUTROPHIL # 4.5 TH/MM3 (1.8-7.7); BASOPHIL % 0.5 % (0.0-2.0); EOSINOPHIL # 0.1 TH/MM3 (0-0.4); HEMATOCRIT 36.1 % (35.0-46.0); HEMO FLAGS DIFF FINAL; LYMPH % 23.4 % (9.0-44.0); LYMPHOCYTE # 1.6 TH/MM3 (1.0-4.8); MEAN CORPUSCULAR HEMOGLOBIN 30.6 PG (27.0-34.0); MEAN CORPUSCULAR HGB CONC 34.4 % (32.0-36.0); MONO % 7.4 % (0.0-8.0); NEUT % 67.7 % (16.0-70.0); PLATELET COUNT 138 TH/MM3 (150-450); RED BLOOD COUNT 4.05 MIL/MM3 (4.00-5.30); RED CELL DISTRIBUTION WIDTH 12.3 % (11.6-17.2); WHITE BLOOD COUNT 6.7 TH/MM3 (4.0-11.0)
[2016-04-04 05:32] LABS: POTASSIUM 3.6 MEQ/L (3.5-5.1)
[2016-04-04] MEDS: INSULIN ASPART SUPPLEMENTAL SCALE SQ SCH ×4 (06:13→21:00)
[2016-04-04] MEDS: ACETAMINOPHEN 325 MG TAB PO PRN (06:18)
[2016-04-04 07:33] VITALS: BP 132/61; PULSE 57; RESP 19; TEMP 98.6
[2016-04-04] MEDS: SODIUM CHLORIDE 0.9% FLUSH 5 ML FLUSH FLUSH SCH ×2 (08:09→21:30)
[2016-04-04] MEDS: LACTOBACILLUS ACIDOPHILUS TAB PO SCH ×2 (08:09→21:32)
[2016-04-04] MEDS: SERTRALINE HCL 50 MG TAB PO SCH (08:10)
[2016-04-04] MEDS: LISINOPRIL 20 MG TAB PO SCH ×2 (08:10→21:33)
[2016-04-04] MEDS: PANTOPRAZOLE SOD 20 MG DELAYED RELEASE TAB PO SCH (08:10)
[2016-04-04] MEDS: CARVEDILOL 6.25 MG TAB PO SCH ×2 (08:11→21:32)
[2016-04-04] MEDS: hydrALAZINE HCL 50 MG TAB PO SCH ×3 (08:11→17:51)
[2016-04-04] MEDS: cloNIDine HCL 0.2 MG TAB PO SCH ×3 (08:11→17:51)
[2016-04-04] MEDS: HYDROCHLOROTHIAZIDE 25 MG TAB PO SCH (08:11)
[2016-04-04] MEDS: BUDESONIDE-FORMOTEROL 160/4.5 MCG INHALER INH SCH ×2 (08:12→21:29)
[2016-04-04] MEDS ORDERED: CLOPIDOGREL 75 MG TAB PO SCH (09:00)
[2016-04-04 12:00] VITALS: BP 123/59; PULSE 57; RESP 20; TEMP 98.6; O2SAT 88
--- NOTE | 2016-04-04 13:28 | HHI.PR ---
Subjective Remarks Follow-up left breast abscess 04/04/16-patient seen and examined, Tmax 99.7 at 4 AM however currently afebrile. Complains of left breast pain. Now with diarrheal episode. Objective Vitals Vital Signs Date Time Temp Pulse Resp B/P Pulse Ox O2 Delivery O2 Flow Rate FiO2 04/04/16 12:00 98.6 57 20 123/59 88 04/04/16 07:33 98.6 57 19 132/61 04/04/16 04:00 99.7 60 20 128/60 92 04/04/16 00:00 97.1 59 19 131/64 92 04/03/16 21:00 97.3 63 21 160/70 94 04/03/16 18:00 55 19 175/82 93 Room Air 04/03/16 14:22 18 93 Room Air 04/03/16 14:22 93 Room Air 04/03/16 13:53 98.3 76 20 245/109 94 Room Air I/O 04/03/16 04/03/16 04/03/16 04/04/16 04/04/16 04/04/16 07:00 15:00 23:00 07:00 15:00 23:00 Intake Total 322 ml 448 ml Balance 322 ml 448 ml Intake Oral 240 ml 120 ml IV Total 82 ml 328 ml # Voids 0 1 # Bowel Movements 0 0 Result Diagram: 04/04/16 0413 04/04/16 0413 Imaging Last Impressions Breast Ultrasound 04/03/16 0000 Signed Impressions: Service Date/Time: Sunday, April 03, 2016 15:24 - CONCLUSION: 1. Nonspecific and hypervascular 3.6 x 4.4 x 1.3 cm mass in the superficial left breast at the 6: 2. 00 position 5 cm from the nipple. Differential diagnosis includes a phlegmonous mass. No definite drainable fluid collections. Close followup recommended to exclude neoplasm. Vishnu Kaufman MD Objective Remarks Last Impressions GENERAL: NAD SKIN: Left breast abscess in Left lateral lower quadrant HEAD: Normocephalic. EYES: No scleral icterus. No injection or drainage. NECK: Supple, trachea midline. No JVD or lymphadenopathy. CARDIOVASCULAR: Regular rate and rhythm without murmurs, gallops, or rubs. RESPIRATORY: Breath sounds equal bilaterally. No accessory muscle use. GASTROINTESTINAL: Abdomen soft, non-tender, nondistended. MUSCULOSKELETAL: No cyanosis, or edema. BACK: Nontender without obvious deformity. No CVA tenderness. A/P Problem List: (1) Abscess of left breast ICD Code: N61.1 Status: Acute (2) Mastitis ICD Code: N61.0 Status: Acute (3) Hypertensive urgency ICD Code: I10 Status: Acute (4) Cardiomyopathy ICD Code: I42.9 Status: Acute (5) CAD (coronary artery disease) ICD Code: I25.10 Status: Acute (6) DM2 (diabetes mellitus, type 2) ICD Code: E11.9 Status: Acute Assessment and Plan 71 year-old female with Left breast abscess/mastitis: Left breast ultrasound with finding of Nonspecific and hypervascular 3.6 x 4.4 x 1.3 cm mass in the superficial left breast. Status post Zosyn and vancomycin in ED however patient had an allergic reaction to vancomycin. continue with Zosyn, clindamycin IV as well as Flagyl. Monitor cultures report. Consult Gen. Surgery for evaluation for possible debridement/drainage. Outpatient mammogram in the setting of left breast abscess to rule out breast cancer. Hypertensive emergency: Resolved and continue with outpatient medications however consider starting patient on Cardene drip if no improvement Diabetes type 2: on insulin sliding scale with fingerstick blood glucose monitoring and outpatient medication. hemoglobin A1c pending Hyperlipidemia: on Lipitor Dementia: on Namenda CAD/cardiomyopathy: Continue outpatient medications. Will hold Plavix DVT prophylaxis: Bilateral SCDs Virgil Sullivan MD Apr 04, 2016 13:28
[2016-04-04] MEDS: ACETAMINOPHEN/HYDROcodone 325 MG/5 MG TAB PO PRN (15:35)
[2016-04-04 16:00] VITALS: BP 139/56; PULSE 63; RESP 20; TEMP 98.1; O2SAT 92
[2016-04-04 17:59] LABS: C. DIFF EPI 027 PRESUMPTIVE NEGATIVE (NEGATIVE); C. DIFF TOXIN PCR NEGATIVE (NEGATIVE)
[2016-04-04 20:00] VITALS: BP 136/62; PULSE 66; RESP 20; TEMP 98; O2SAT 94
--- NOTE | 2016-04-04 20:25 | RADRPT ---
EXAM DATE/TIME: 04/04/2016 19:59 [facility] COMPARISON: CHEST SINGLE AP, July 01, 2015, 0:14. INDICATIONS : Short of breath MEDICAL HISTORY : None. SURGICAL HISTORY : None. ENCOUNTER: Initial ACUITY: 1 day PAIN SCORE: 0/10 LOCATION: Bilateral chest FINDINGS: A single view of the chest demonstrates the lungs to be symmetrically aerated without evidence of mas s, infiltrate or effusion. The cardiomediastinal contours are unremarkable. Osseous structures are intact. CONCLUSION: No acute disease. Henry Marquez MD on April 04, 2016 at 20:23 Board Certified Radiologist. This report was verified electronically.
[2016-04-04] MEDS: DONEPEZIL HCL 23 MG TAB PO SCH (21:32)
[2016-04-04] MEDS: ATORVASTATIN 40 MG TAB PO SCH (21:33)
[2016-04-05] VITALS: BP 138/60; PULSE 68; RESP 20; TEMP 97.2; O2SAT 95
[2016-04-05] MEDS: PIPERACIL-TAZO 3.375 GM PREMIX 50 ML IV SCH ×2 (01:12→05:13)
[2016-04-05] MEDS: ACETAMINOPHEN/HYDROcodone 325 MG/7.5 MG TAB PO PRN ×2 (01:24→20:32)
[2016-04-05] MEDS: metroNIDAZOLE 500 MG INJ 100 ML IV SCH (03:40)
[2016-04-05] MEDS: CLINDAMYCIN INJ 600 MG in SODIUM CHLORIDE 0.9% INJ 100 ML IV SCH (05:12)
[2016-04-05] MEDS: INSULIN ASPART SUPPLEMENTAL SCALE SQ SCH ×4 (05:15→20:39)
[2016-04-05 08:00] VITALS: BP 173/74; PULSE 50; RESP 18; TEMP 96.6; O2SAT 95
[2016-04-05] MEDS ORDERED: INSULIN HUMAN REGULAR 1,000 UNITS/10 ML VIAL SQ PRN (08:30)
[2016-04-05] MEDS ORDERED: METOPROLOL TARTRATE 25 MG TAB PO PRN (08:30)
[2016-04-05] MEDS ORDERED: SODIUM CHLORID 0.9% 500 ML IV SCH (08:30)
[2016-04-05] MEDS: cloNIDine HCL 0.2 MG TAB PO SCH ×3 (08:36→17:57)
[2016-04-05] MEDS: hydrALAZINE HCL 50 MG TAB PO SCH ×3 (08:36→17:57)
[2016-04-05] MEDS: PANTOPRAZOLE SOD 20 MG DELAYED RELEASE TAB PO SCH (08:36)
[2016-04-05] MEDS: LISINOPRIL 20 MG TAB PO SCH ×2 (08:36→20:31)
[2016-04-05] MEDS: LACTOBACILLUS ACIDOPHILUS TAB PO SCH ×2 (08:36→20:31)
[2016-04-05] MEDS: CARVEDILOL 6.25 MG TAB PO SCH ×2 (08:36→20:31)
[2016-04-05] MEDS: SERTRALINE HCL 50 MG TAB PO SCH (08:36)
[2016-04-05] MEDS: HYDROCHLOROTHIAZIDE 25 MG TAB PO SCH (08:36)
[2016-04-05] MEDS: LACTATED RINGER'S 1000 ML IV SCH (08:37)
[2016-04-05] MEDS: SODIUM CHLORIDE 0.9% FLUSH 5 ML FLUSH FLUSH SCH ×2 (08:37→20:31)
[2016-04-05] MEDS: BUDESONIDE-FORMOTEROL 160/4.5 MCG INHALER INH SCH ×2 (08:38→20:31)
[2016-04-05] MEDS: ACETAMINOPHEN/HYDROcodone 325 MG/5 MG TAB PO PRN (08:40)
--- NOTE | 2016-04-05 09:09 | HHI.PR ---
Subjective Remarks Follow-up left breast abscess 04/04/16-patient seen and examined, Tmax 99.7 at 4 AM however currently afebrile. Complains of left breast pain. Now with diarrheal episode. 04/05/16-patient seen and examined; still complaining of left breast pain. NPO pending debridement of left breast Objective Vitals Vital Signs Date Time Temp Pulse Resp B/P Pulse Ox O2 Delivery O2 Flow Rate FiO2 04/05/16 00:00 97.2 68 20 138/60 95 04/04/16 20:00 98.0 66 20 136/62 94 04/04/16 16:00 98.1 63 20 139/56 92 04/04/16 12:00 98.6 57 20 123/59 88 I/O 04/04/16 04/04/16 04/04/16 04/05/16 04/05/16 04/05/16 07:00 15:00 23:00 07:00 15:00 23:00 Intake Total 448 ml 360 ml 606 ml 421 ml Output Total 250 ml 700 ml 400 ml Balance 448 ml 110 ml -94 ml 21 ml Intake Oral 120 ml 360 ml 480 ml 0 ml IV Total 328 ml 126 ml 421 ml Output Urine Total 250 ml 700 ml 400 ml # Voids 1 # Bowel Movements 0 2 0 0 Result Diagram: 04/04/16 0413 04/04/16 041 Objective Remarks Last Impressions GENERAL: NAD SKIN: Left breast abscess in Left lateral lower quadrant HEAD: Normocephalic. EYES: No scleral icterus. No injection or drainage. NECK: Supple, trachea midline. No JVD or lymphadenopathy. CARDIOVASCULAR: Regular rate and rhythm without murmurs, gallops, or rubs. RESPIRATORY: Breath sounds equal bilaterally. No accessory muscle use. GASTROINTESTINAL: Abdomen soft, non-tender, nondistended. MUSCULOSKELETAL: No cyanosis, or edema. BACK: Nontender without obvious deformity. No CVA tenderness. A/P Problem List: (1) Abscess of left breast ICD Code: N61.1 Status: Acute (2) Mastitis ICD Code: N61.0 Status: Acute (3) Hypertensive urgency ICD Code: I10 Status: Acute (4) Cardiomyopathy ICD Code: I42.9 Status: Acute (5) CAD (coronary artery disease) ICD Code: I25.10 Status: Acute (6) DM2 (diabetes mellitus, type 2) ICD Code: E11.9 Status: Acute Assessment and Plan 71 year-old female with Left breast abscess/mastitis: Left breast ultrasound with finding of Nonspecific and hypervascular 3.6 x 4.4 x 1.3 cm mass in the superficial left breast. Status post Zosyn and vancomycin in ED however patient had an allergic reaction to vancomycin. continue with Zosyn, clindamycin IV as well as Flagyl. Monitor cultures report. Appreciate Gen. Surgery input and plan for debridement/drainage 04/05/16. Outpatient mammogram in the setting of left breast abscess to rule out breast cancer. Hypertensive emergency: Resolved and continue with outpatient medications however consider starting patient on Cardene drip if no improvement Diabetes type 2: on insulin sliding scale with fingerstick blood glucose monitoring and outpatient medication. hemoglobin A1c pending Hyperlipidemia: on Lipitor Dementia: on Namenda CAD/cardiomyopathy: Continue outpatient medications. Will hold Plavix DVT prophylaxis: Bilateral SCDs Virgil Sullivan MD Apr 05, 2016 09:09
[2016-04-05] MEDS ORDERED: DEXAMETHASONE SOD PHOS 4 MG/ML VIAL ONE (10:41)
[2016-04-05] MEDS ORDERED: MIDAZOLAM HCL 2 MG/2 ML VIAL ONE (10:41)
[2016-04-05] MEDS ORDERED: ACETAMINOPHEN 1000 MG/100 ML VIAL IV ONE (10:50)
[2016-04-05] MEDS ORDERED: FAMOTIDINE 20 MG/2 ML VIAL ONE (10:50)
[2016-04-05 11:08] LABS: APTT (PATIENT) 27.1 SEC (24.3-30.1)
[2016-04-05 11:23] LABS: BICARBONATE 25.7 MEQ/L (21.0-32.0); POTASSIUM 3.5 MEQ/L (3.5-5.1)
[2016-04-05] MEDS ORDERED: BUPIVACAINE/EPINEPHRINE 0.5% PF 30 ML VIAL ONE (11:38)
[2016-04-05] MEDS ORDERED: ONDANSETRON HCL 4 MG/2 ML VIAL IV PUSH ONE (12:00)
[2016-04-05] MEDS ORDERED: ePHEDrine/NS 25 MG/5 ML SYR IV ONE (12:00)
[2016-04-05] MEDS ORDERED: PROPOFOL 200 MG/20 ML AMP IV ONE (12:00)
[2016-04-05] MEDS ORDERED: DO NOT ADM ANY ANTICOAGULANT DRUGS XX PRN (12:16)
--- NOTE | 2016-04-05 12:19 | HHI.PR ---
cc: Vishnu Clark MD Immediate Post Op Note Procedure Date: Apr 05, 2016 Pre Op Diagnosis: (1) Breast abscess Post Op Diagnosis: (1) Breast abscess Surgeon: Vishnu Clark Clinical Document Improvement Educator(s): see or records Procedure: Wide excision of necrotic skin subcutaneous tissue and breast tissue left breast 5 x 4 cm defect Placement of [place] drain Findings: Necrotic skin and subcutaneous tissue breast tissue no mass appreciated Additional Information: Tissue specimen marked at 12 o'clock position for pathologic orientation Complications: None Specimen(s) removed: left breast tissue and skin and sub q Anesthesia: General Drains: None, [place] Patient to: PACU Patient Condition: Good Implant/Devices: SEE IMPLANT LOG (if applicable) Date/Time of Procedure: SEE SURGICAL CARE RECORD Vishnu Clark MD Apr 05, 2016 12:19
[2016-04-05] MEDS ORDERED: SODIUM CHLORIDE 0.9% INJ 100 ML ONE (12:20)
[2016-04-05] MEDS ORDERED: CLINDAMYCIN PHOS 600 MG/4 ML VIAL ONE (12:20)
[2016-04-05] MEDS ORDERED: *RESP: ALBUTEROL 2.5 MG/3 ML NEB (PRN) PERIprocedural Use ONLY NEB ONE (12:23)
[2016-04-05 13:00] VITALS: BP 170/75; PULSE 50; RESP 16; TEMP 96.9; O2SAT 92
[2016-04-05] MEDS: metroNIDAZOLE 500 MG TAB PO SCH ×2 (13:45→22:01)
[2016-04-05 16:00] VITALS: BP 128/65; PULSE 58; RESP 17; TEMP 95.9; O2SAT 92
[2016-04-05 20:00] VITALS: BP 176/80; PULSE 57; RESP 22; TEMP 98.2; O2SAT 94
[2016-04-05] MEDS: ATORVASTATIN 40 MG TAB PO SCH (20:31)
[2016-04-05] MEDS: DONEPEZIL HCL 23 MG TAB PO SCH (20:31)
[2016-04-05] MEDS: CIPROFLOXACIN 500 MG TAB PO SCH (20:31)
[2016-04-05 21:00] VITALS: O2SAT 89
[2016-04-06] VITALS: BP 160/84; PULSE 62; RESP 20; TEMP 97.8; O2SAT 93
[2016-04-06 04:00] VITALS: BP 154/80; PULSE 68; RESP 20; TEMP 98; O2SAT 94
[2016-04-06] MEDS: metroNIDAZOLE 500 MG TAB PO SCH ×2 (04:35→13:47)
[2016-04-06] MEDS: ACETAMINOPHEN/HYDROcodone 325 MG/7.5 MG TAB PO PRN ×2 (04:35→12:26)
[2016-04-06] MEDS: INSULIN ASPART SUPPLEMENTAL SCALE SQ SCH ×3 (05:33→16:00)
[2016-04-06 08:00] VITALS: BP 175/79; PULSE 50; RESP 15; TEMP 98.1; O2SAT 92
[2016-04-06] MEDS: LACTATED RINGER'S 1000 ML IV SCH (08:30)
[2016-04-06] MEDS: HYDROCHLOROTHIAZIDE 25 MG TAB PO SCH (08:57)
[2016-04-06] MEDS: hydrALAZINE HCL 50 MG TAB PO SCH ×3 (08:57→16:40)
[2016-04-06] MEDS: cloNIDine HCL 0.2 MG TAB PO SCH ×3 (08:57→16:39)
[2016-04-06] MEDS: SERTRALINE HCL 50 MG TAB PO SCH (08:57)
[2016-04-06] MEDS: PANTOPRAZOLE SOD 20 MG DELAYED RELEASE TAB PO SCH (08:57)
[2016-04-06] MEDS: LACTOBACILLUS ACIDOPHILUS TAB PO SCH (08:57)
[2016-04-06] MEDS: CARVEDILOL 6.25 MG TAB PO SCH (08:57)
[2016-04-06] MEDS: LISINOPRIL 20 MG TAB PO SCH (08:57)
[2016-04-06] MEDS: CIPROFLOXACIN 500 MG TAB PO SCH (08:57)
[2016-04-06] MEDS: SODIUM CHLORIDE 0.9% FLUSH 5 ML FLUSH FLUSH SCH (09:00)
[2016-04-06] MEDS: BUDESONIDE-FORMOTEROL 160/4.5 MCG INHALER INH SCH (09:00)
--- NOTE | 2016-04-06 11:15 | HHI.PR ---
Subjective Remarks Follow-up left breast abscess 04/04/16-patient seen and examined, Tmax 99.7 at 4 AM however currently afebrile. Complains of left breast pain. Now with diarrheal episode. 04/05/16-patient seen and examined; still complaining of left breast pain. NPO pending debridement of left breast 04/06/16-patient seen and examined; she is s/p Wide excision of necrotic skin subcutaneous tissue and breast tissue left breast 04/05/16; complains of soreness to incision site otherwise stable Objective Vitals Vital Signs Date Time Temp Pulse Resp B/P Pulse Ox O2 Delivery O2 Flow Rate FiO2 04/06/16 08:00 98.1 50 15 175/79 92 04/06/16 04:00 98.0 68 20 154/80 94 04/06/16 00:00 97.8 62 20 160/84 93 04/05/16 21:32 18 04/05/16 21:00 89 21 04/05/16 20:00 98.2 57 22 176/80 94 04/05/16 16:00 95.9 58 17 128/65 92 04/05/16 13:00 96.9 50 16 170/75 92 04/05/16 12:50 98.0 49 17 95 Nasal Cannula 3 04/05/16 12:45 49 17 155/76 95 Nasal Cannula 3 04/05/16 12:30 45 19 147/67 99 Aerosol Mask 04/05/16 12:15 98.2 48 14 141/77 94 Nasal Cannula 4 I/O 04/05/16 04/05/16 04/05/16 04/06/16 04/06/16 04/06/16 07:00 15:00 23:00 07:00 15:00 23:00 Intake Total 421 ml 550 ml 420 ml 480 ml Output Total 400 ml 10 ml 400 ml 800 ml Balance 21 ml 540 ml 20 ml -320 ml Intake Oral 0 ml 0 ml 420 ml 480 ml IV Total 421 ml 50 ml Other 500 ml Output Urine Total 400 ml 400 ml 800 ml Estimated Blood Loss 10 ml # Voids 2 # Bowel Movements 0 0 0 Result Diagram: 04/04/16 0413 04/05/16 1007 Objective Remarks Last Impressions GENERAL: NAD SKIN:dressing over Left breast abscess HEAD: Normocephalic. EYES: No scleral icterus. No injection or drainage. NECK: Supple, trachea midline. No JVD or lymphadenopathy. CARDIOVASCULAR: Regular rate and rhythm without murmurs, gallops, or rubs. RESPIRATORY: Breath sounds equal bilaterally. No accessory muscle use. GASTROINTESTINAL: Abdomen soft, non-tender, nondistended. MUSCULOSKELETAL: No cyanosis, or edema. BACK: Nontender without obvious deformity. No CVA tenderness. Procedures Wide excision of necrotic skin subcutaneous tissue and breast tissue left breast 04/05/16 Placement of [place] drain A/P Problem List: (1) Abscess of left breast ICD Code: N61.1 Status: Acute (2) Mastitis ICD Code: N61.0 Status: Acute (3) Hypertensive urgency ICD Code: I10 Status: Acute (4) Cardiomyopathy ICD Code: I42.9 Status: Acute (5) CAD (coronary artery disease) ICD Code: I25.10 Status: Acute (6) DM2 (diabetes mellitus, type 2) ICD Code: E11.9 Status: Acute Assessment and Plan 71 year-old female with Left breast abscess/mastitis: Left breast ultrasound with finding of Nonspecific and hypervascular 3.6 x 4.4 x 1.3 cm mass in the superficial left breast.s/p Wide excision of necrotic skin subcutaneous tissue and breast tissue left breast 04/05/16 my general surgery. Continue with Cipro and Flagyl. Monitor cultures report. Outpatient mammogram in the setting of left breast abscess to rule out breast cancer. Hypertensive emergency: Resolved and continue with outpatient medications Diabetes type 2: on insulin sliding scale with fingerstick blood glucose monitoring and outpatient medication. hemoglobin A1c pending Hyperlipidemia: on Lipitor Dementia: on Namenda CAD/cardiomyopathy: Continue outpatient medications. Resume Plavix DVT prophylaxis: Bilateral SCDs Virgil Sullivan MD Apr 06, 2016 11:15
[2016-04-06 12:00] VITALS: BP 167/76; PULSE 56; RESP 17; TEMP 96.6; O2SAT 92
--- NOTE | 2016-04-06 12:18 | HHI.FF ---
Face to Face Verification Diagnosis: (1) Breast abscess Home Health Nursing Order: Wound care and dressing changes Instructions: Dry dressing changed daily around drain---okay to shower and replace dressing--- daily please I have seen patient Caprice South on 04/06/16. My clinical findings support the need for the requested home health care services because: Limited ability to care for self I certify that my clinical findings support that this patient is homebound because: Post-op weakness Iman Dumas Apr 06, 2016 12:18 Vishnu Clark MD Apr 06, 2016 12:29
--- NOTE | 2016-04-06 13:38 | HHI.PR ---
Subjective Subjective Notes Resting in bed RN at bedside Objective Vitals/I&O Vital Signs Date Time Temp Pulse Resp B/P Pulse Ox O2 Delivery O2 Flow Rate FiO2 04/06/16 12:00 96.6 56 17 167/76 92 04/05/16 21:00 21 04/05/16 12:50 Nasal Cannula 3 Labs Date/Time Procedure Status Source Growth 04/05/16 11:48 Gram Stain - Final Resulted Wound Breast 04/05/16 11:48 Wound Culture Resulted Wound Breast Pending 04/05/16 11:48 Fungal Smear - Final Resulted Wound Breast NO FUNGAL ELEMENTS SEEN. 04/05/16 11:48 Fungal Culture Resulted Wound Breast Pending 04/05/16 11:48 Acid Fast Stain Received Wound Breast Pending 04/05/16 11:48 Mycobacterial Culture Received Wound Breast Pending 04/03/16 14:55 Aerobic Blood Culture - Preliminary Resulted Blood Peripheral NO GROWTH IN 3 DAYS 04/03/16 14:55 Anaerobic Blood Culture - Preliminary Resulted Blood Peripheral NO GROWTH IN 3 DAYS Cardiovascular: Regular Lungs: Clear Abdomen: Non-distended, Non-tender Extremities: No edema Narrative Exam s/p Wide excision of necrotic skin subcutaneous tissue and breast tissue left breast A/P Assessment and Plan 71 year old female POD1 Wide excision of necrotic skin subcutaneous tissue and breast tissue left breast -Continue antibiotics PO -Pain controlled -HHC ordered -Patient can shower -If patient does go home today she should follow up in the office tomorrow Iman Dumas Apr 06, 2016 13:38
[2016-04-06] MEDS ORDERED: METR-1 PO (13:39)
[2016-04-06] MEDS ORDERED: CIPR-9 PO (13:39)
[2016-04-06] MEDS ORDERED: HYDR-3516 PO (14:03)
--- NOTE | 2016-04-06 14:06 | HHI.DS ---
Discharge Summary Admission Date Apr 03, 2016 at 17:13 Discharge Date: Apr 06, 2016 Admitting Diagnosis (1) Abscess of left breast ICD Code: N61.1 (2) Mastitis ICD Code: N61.0 (3) Hypertensive urgency ICD Code: I10 (4) Cardiomyopathy ICD Code: I42.9 (5) CAD (coronary artery disease) ICD Code: I25.10 (6) DM2 (diabetes mellitus, type 2) ICD Code: E11.9 Procedures Wide excision of necrotic skin subcutaneous tissue and breast tissue left breast 04/05/16 Placement of [place] drain Brief History - From Admission 71 year-old female with a history of diabetes type 2, hypertension and hyperlipidemia presented to the ED for evaluation of 1 week history of left painful breast swelling rated 8/10 in intensity and now with drainage over the past 4 days associated with subjective fever. Patient reports that about a week ago she had a small bump/lump on the left lateral lower quadrant for breast which she scratched. Few days after, she notice worsening erythema and increased swelling and significant tenderness to palpation. It proceeded to become more painful with some form of necrosis in the past 4 days she started noticing discharge of the purulent material. However over the past 24 hours, the pain became so unbearable, therefore patient decided to come to the hospital. She denies any insect bites or trauma. Patient states, about 3-4 years ago she has a normal mammogram. CBC/BMP: 04/04/16 0413 04/05/16 1007 Significant Findings Laboratory Tests Test 04/03/16 04/04/16 04/05/16 14:50 04:13 10:07 Estimat Glomerular Filtration 72 ML/MIN (>89) 56 ML/MIN (>89) 56 ML/MIN (>89) Rate Calcium Level 10.4 MG/DL (8.5-10.1) Aspartate Amino Transf 10 U/L (15-37) (AST/SGOT) Platelet Count 138 TH/MM3 (150-450) Random Glucose 122 MG/DL 131 MG/DL (74-106) (74-106) Imaging Last Impressions Chest X-Ray 04/04/16 0000 Signed Impressions: Service Date/Time: Monday, April 04, 2016 19:59 - CONCLUSION: No acute disease. Henry Marquez MD Breast Ultrasound 04/03/16 0000 Signed Impressions: Service Date/Time: Sunday, April 03, 2016 15:24 - CONCLUSION: 1. Nonspecific and hypervascular 3.6 x 4.4 x 1.3 cm mass in the superficial left breast at the 6: 2. 00 position 5 cm from the nipple. Differential diagnosis includes a phlegmonous mass. No definite drainable fluid collections. Close followup recommended to exclude neoplasm. Vishnu Kaufman MD PE at Discharge Last Impressions GENERAL: NAD SKIN:dressing over Left breast abscess HEAD: Normocephalic. EYES: No scleral icterus. No injection or drainage. NECK: Supple, trachea midline. No JVD or lymphadenopathy. CARDIOVASCULAR: Regular rate and rhythm without murmurs, gallops, or rubs. RESPIRATORY: Breath sounds equal bilaterally. No accessory muscle use. GASTROINTESTINAL: Abdomen soft, non-tender, nondistended. MUSCULOSKELETAL: No cyanosis, or edema. BACK: Nontender without obvious deformity. No CVA tenderness. Hospital Course Left breast abscess/mastitis: Left breast ultrasound with finding of Nonspecific and hypervascular 3.6 x 4.4 x 1.3 cm mass in the superficial left breast.s/p Wide excision of necrotic skin subcutaneous tissue and breast tissue left breast 04/05/16 my general surgery. Continue with Cipro and Flagyl. Monitor cultures report. Outpatient mammogram in the setting of left breast abscess to rule out breast cancer. Hypertensive emergency: Resolved and continue with outpatient medications Diabetes type 2: on insulin sliding scale with fingerstick blood glucose monitoring and outpatient medication. hemoglobin A1c pending Hyperlipidemia: on Lipitor Dementia: on Namenda CAD/cardiomyopathy: Continue outpatient medications. Resume Plavix DVT prophylaxis: Bilateral SCDs Pt Condition on Discharge: Stable Discharge Disposition: Disch w/ Home Health Serv Discharge Time: > 30 minutes Discharge Instructions DIET: Follow Instructions for: Diabetic Diet Activities you can perform: Regular-No Restrictions Follow up Referrals: PCP Follow-up - 1 Week Surgical - 10 Days with Vishnu Clark MD New Medications: Ciprofloxacin (Cipro) 500 Mg Tab 500 MG PO Q12HR Infection Days 7 TAB Hydrocodone-Acetaminophen (Hydrocodone-Acetaminophen) 5-325 mg Tab 1 TAB PO Q4H PRN PAIN SCALE 3 TO 5 #20 TAB Metronidazole (Flagyl) 500 Mg Tab 500 MG PO Q8HR Infection Days 7 TAB Continued Medications: Alendronate (Alendronate) 70 Mg Tab 70 MG PO Q7D Osteporosis Treatment #4 Ref 0 TAB Amlodipine (Norvasc) 10 Mg Tab 10 MG PO DAILY Blood Pressure Management #30 Ref 0 TAB Atorvastatin (Lipitor) 40 Mg Tab 40 MG PO HS Cholesterol Management #30 Ref 0 TAB Butalbital-Acetaminophen (Butalbital-Acetaminophen) 50-325 Mg Tab 1 TAB PO Q8HR Do not exceed 6 tablets per day. PRN HEADACHE Ref 0 TAB Carvedilol (Coreg) 6.25 Mg Tab 6.25 MG PO BID #60 Ref 0 TAB Clonidine (Clonidine) 0.2 Mg Tab 0.2 MG PO TID Blood Pressure Management #60 Ref 0 TAB Clopidogrel (Plavix) 75 Mg Tab 75 MG PO DAILY Blood Clot Prevention #30 Ref 0 TAB Cyclosporine Opth Drops (Restasis Opth Drops) 0.05% Emul 1 DROP EACH EYE BID Dry Eye #1 Ref 0 BOX Donepezil (Donepezil) 23 Mg Tab 23 MG PO HS Do not split, crush or chew. Dementia #30 Ref 0 TAB Fluticasone-Salmeterol Inh (Advair Diskus Inh) 500-50 Mcg/Blist Aer 1 PUFF INH BID Rinse mouth after use. #1 Ref 0 INHALER Furosemide (Lasix) 20 Mg Tab 20 MG PO DAILY #30 Ref 0 TAB Hydralazine (Hydralazine) 50 Mg Tab 50 MG PO TID Take with a meal Blood Pressure Management Ref 0 TAB Hydrochlorothiazide (Hydrochlorothiazide) 25 Mg Tab 25 MG PO DAILY #30 Ref 0 TAB Lisinopril (Lisinopril) 20 Mg Tab 20 MG PO BID #30 Ref 0 TAB Losartan (Losartan) 25 Mg Tab 25 MG PO DAILY Blood Pressure Management #30 Ref 0 TAB Omeprazole (Prilosec) 20 Mg Cap 20 MG PO DAILY #30 Ref 0 CAP Sertraline (Sertraline) 25 Mg Tab 25 MG PO DAILY #30 Ref 0 TAB Sitagliptin (Januvia) 100 Mg Tab 100 MG PO DAILY Blood Sugar Management #30 Ref 0 TAB Discontinued Medications: Baclofen (Baclofen) 10 Mg Tab 10 MG PO TID PRN MUSCLE SPASM Ref 0 TAB Clonidine (Catapres) 0.2 Mg Tab 0.2 MG PO TID Blood Pressure Management #60 Ref 0 TAB Virgil Sullivan MD Apr 06, 2016 14:06
[2016-04-06 14:18] VITALS: O2SAT 95
--- NOTE | 2016-04-06 15:42 | MP ---
cc: KRISTI CLARK DATE OF SURGERY 04/05/2016 PREOPERATIVE DIAGNOSIS Left breast skin and subcutaneous breast abscess 6 o'clock position. POSTOPERATIVE DIAGNOSIS Left breast skin and subcutaneous breast abscess 6 o'clock position. PROCEDURE Culture and wide excision of skin and subcutaneous tissue and breast lower portion of the breast with loose approximation with drainage. ANESTHESIA General SURGEON Dr. Clark INDICATIONS This is pleasant, slightly confused 71-year-old female who has had a left breast abscess from which she can recall about two weeks. She was admitted to the hospital. Plans were made for above. PROCEDURE The patient taken to the operating room, placed in a supine position. After anesthesia, her time-out was done. Her breast is prepped with Betadine. We anesthetized with a Marcaine solution. The area of necrotic skin overlying the 6 o'clock position is about 5 cm x 3 cm. We make an elliptical incision incorporating this necrotic skin and dissect down to normal-appearing tissue circumferentially placed a marker stitch at 12 o'clock position to michael the area in question for orientation for the pathologist. A sharp dissection was then done with sharp scissors and knives and utilizing electrocautery device to completely remove it and passed off the field with a marking suture. We then irrigate copiously. Clean the wound with Betadine once again. I then placed a Chiara in the base of the open wound and loosely reapproximate the skin with a 3-0 nylon. A sterile bandage was applied. The patient tolerated the procedure well and had no immediate postop complications. MD JILLIAN Sim/EVELIO /12:10 PM /3:36 PM
[2016-04-06 16:00] VITALS: BP 139/63; PULSE 47; RESP 16; TEMP 96.7; O2SAT 93
[2016-04-06] MEDS: ACETAMINOPHEN 325 MG TAB PO PRN (16:40)
[2016-04-06] MEDS ORDERED: HYDR-3580 PO (16:59)
--- NOTE | 2016-04-19 18:09 | MB ---
cc: KRISTI CLARK M.D. DATE OF CONSULTATION 04/05/2016 This is a late dictation, previous dictation lost. HISTORY OF THE PRESENT ILLNESS This is a pleasant lady who was admitted to the hospital on April 03. She was, over the ensuing days, found to have abscess in the breast on the left side and surgery was consulted. She is presently a little bit confused because I think of her overwhelming sickness. She has been on antibiotics without resolution and progression of this mass with redness and draining in the left breast. PAST MEDICAL HISTORY Significant for: 1. Restless leg syndrome. 2. She is on Plavix. 3. She has had diverticulosis. 4. She has had heart disease in the past. 5. Some pulmonary issues. 6. She had a cholecystectomy in the past. ALLERGIES INCLUDE NUMEROUS MEDICATIONS. ALL LISTED IN THE COMPUTER. MEDICATIONS All listed in the computer as well. She has been on antibiotic therapy. PHYSICAL EXAMINATION GENERAL: She is somewhat unkempt female, lying in bed. A little bit confused. NECK: Supple. CHEST: Clear. HEART: Regular rate. BREASTS: The left breast shows an ulcerative mass at the 6 o'clock position with drainage. This measured about 5 cm. No other lesions are felt in the breast or in the right breast. EXTREMITIES: Moves all extremities well although she is somewhat slow to move around. LABORATORY DATA She had a white count of 6. H&H of 12 and 36. Chemistry fairly normal. IMAGING Breasts ultrasound done on the shows 3.6 x 4.4 x 1.3 mass at the 6 o'clock in the left breast. Followup needs to be done to exclude neoplasia or cancer. ASSESSMENT Ulcerative mass, infected at the 6 o'clock position of the left breast. PLAN Immediate operative intervention with a wide debridement, possible VAC placement. This was explained to the patient, I believe she understood. Kristi Clark MD JJESSICA/XIAO /5:25 PM /5:59 PM
== END 2016-04-06 18:40 | disposition home health service (06) | DRG 584 ==
LOC: NEPC 13:51 → NEDA 17:13 → N07A 20:55
PROVIDERS: ADMIT Hospitalist; ATTEND Hospitalist
PROC: 0HBU0ZZ Excision of Left Breast, Open Approach (ICD-10-PCS; principal; 2016-04-05 11:00)
DX: N61.1 Abscess of the breast and nipple (principal); I16.1 Hypertensive emergency; I42.9 Cardiomyopathy, unspecified; F03.90 Unspecified dementia, unspecified severity, without behavioral disturbance, psychotic disturbance, mood disturbance, and anxiety; I16.0 Hypertensive urgency; E11.9 Type 2 diabetes mellitus without complications; E78.5 Hyperlipidemia, unspecified; G25.81 Restless legs syndrome; I25.10 Atherosclerotic heart disease of native coronary artery without angina pectoris; I10 Essential (primary) hypertension; I25.2 Old myocardial infarction; N64.4 Mastodynia; F17.200 Nicotine dependence, unspecified, uncomplicated; Z86.73 Personal history of transient ischemic attack (TIA), and cerebral infarction without residual deficits
CPT/HCPCS: 71010; 76642; 80048; 80053; 82948; 83605; 85025; 85730; 87015; 87040; 87070; 87102; 87116; 87185; 87205; 87206; 87493; 88304; 88305; 94640; 96365; 96366; 96368; 96375; J0131; J1100; J1200; J1815; J2250; J2270; J2405; J2543; J3010; J3370; J7030; J7050; J7120; J7613

== ENCOUNTER 2016-05-05 10:57 | Inpatient (IN) | payer OTHER, MEDICARE ==
[2016-05-05] VITALS (9 sets, daily range): BP systolic 147–300; BP diastolic 66–140; PULSE 50–77; RESP 16–20; TEMP 97.3–98.8; O2SAT 93–99
[~2016-05-05] VITALS: Ht 175.3 cm; Wt 83.5 kg
[~2016-05-05 10:57] MED LIST changes: +ALEN1TAB48 PO; -BACL10TA PO; +BUTA1TAB30 PO; +CIPR-9 PO; -CLON.2 PO; +CLON0.2T PO; +DONE1TAB63 PO; -HYDR-3533 PO; +HYDR-3580 PO; +HYDR25TA5 PO; +METR-1 PO; -PERC10TA27 PO; +SERT25TA83 PO
[2016-05-05] MEDS ORDERED: SODIUM CHLORIDE 0.9% FLUSH 5 ML FLUSH IVF PRN (11:00)
[2016-05-05] MEDS ORDERED: cloNIDine HCL 0.2 MG TAB PO ONE (11:00)
--- NOTE | 2016-05-05 11:06 | PD ---
HPI Chief Complaint: high blood pressure Time Seen by Provider: 11:00 Travel History International Travel<30 days: No Contact w/Intl Traveler<30days: No Traveled to known affect area: No History of Present Illness HPI 71-year-old female with history of hypertension, on multiple high blood pressure medications, presents to the ER today brought in by EMS because home health care nurse had come in to check on her chronic left breast wound and found that her blood pressure was extremely elevated. Patient complains of mild headache but denies any chest pains, shortness of breath, or any other symptoms. Initial EMS evaluation shows that her blood pressure was over 300 systolic. She had taken some of her morning medications already but is post to be on clonidine and apparently has not taken it. Modifying Factors: None Associated Signs & Symptoms: Very elevated blood pressures Risk Factors: History of hypertension PFSH Past Medical History Hx Anticoagulant Therapy: Yes (PLAVIX) Arthritis: Yes Blood Disorders: No Anxiety: Yes Depression: No Cancer: No Cardiovascular Problems: Yes High Cholesterol: Yes Chest Pain: Yes Cerebrovascular Accident: Yes Diabetes: Yes Diminished Hearing: No Gastrointestinal Disorders: Yes (DIVERTICULOSIS) GERD: No Genitourinary: No Headaches: Yes Hepatitis: No Hiatal Hernia: No Hypertension: Yes Immune Disorder: No Implanted Vascular Access Dvce: No Musculoskeletal: Yes (BACK PAIN) Neurologic: Yes (RESTLESS LEG SYNDROME) Psychiatric: No Reproductive: Yes (HYSTERECTOMY 20 YRS AGO) Respiratory: No Immunizations Current: Yes Migraines: No Myocardial Infarction: Yes Seizures: No Thyroid Disease: Yes Ulcer: No Menopausal: Yes : 2 Para: 2 Past Surgical History AICD: No Appendectomy: No Arteriovenous Shunt: No Cholecystectomy: No Endocrine Surgery: Yes (THYROID SX) Gynecologic Surgery: Yes (HYSTERECTOMY 20YRS AGO) Hysterectomy: Yes Insulin Pump: No Joint Replacement: No Pacemaker: No Tonsillectomy: Yes Other Surgery: Yes Social History Alcohol Use: No Tobacco Use: Yes (1 PPD) Substance Use: No Allergies-Medications (Allergen,Severity, Reaction): Coded Allergies: Cultivated Oat Pollen (Verified Allergy, Severe, 04/03/16) Dust (Verified Allergy, Severe, 04/03/16) Peanut (Verified Allergy, Severe, 04/03/16) Aspirin (Verified Allergy, Mild, 04/03/16) states it makes her stomach upset, but she can take it Egg Allergy (Verified Allergy, Mild, 04/03/16) Codeine (Verified Adverse Reaction, Intermediate, NAUSEA, 04/03/16) Reported Meds & Prescriptions Reported Meds & Active Scripts Active Hydrocodone-Acetaminophen 7.5-325 mg Tab 1 Tab PO Q4H PRN Cipro (Ciprofloxacin HCl) 500 Mg Tab 500 Mg PO Q12HR 7 Days Reported Sertraline (Sertraline HCl) 25 Mg Tab 25 Mg PO DAILY Donepezil 23 Mg Tab 23 Mg PO HS Do not split, crush or chew. Januvia (Sitagliptin Phosphate) 100 Mg Tab 100 Mg PO DAILY Prilosec (Omeprazole) 20 Mg Cap 20 Mg PO DAILY Losartan (Losartan Potassium) 25 Mg Tab 25 Mg PO DAILY Lisinopril 20 Mg Tab 20 Mg PO BID Hydralazine (Hydralazine HCl) 50 Mg Tab 50 Mg PO TID Take with a meal Lasix (Furosemide) 20 Mg Tab 20 Mg PO DAILY Plavix (Clopidogrel Bisulfate) 75 Mg Tab 75 Mg PO DAILY Coreg (Carvedilol) 6.25 Mg Tab 6.25 Mg PO BID Lipitor (Atorvastatin Calcium) 40 Mg Tab 40 Mg PO HS Norvasc (Amlodipine Besylate) 10 Mg Tab 10 Mg PO DAILY Review of Systems Except as stated in HPI: all other systems reviewed are Neg Physical Exam Narrative GENERAL: Well-developed elderly white female patient who is awake, alert, oriented 3, currently not in acute distress. SKIN: Warm and dry. HEAD: Atraumatic. Normocephalic. EYES: Pupils equal and round. No scleral icterus. No injection or drainage. ENT: No nasal bleeding or discharge. Mucous membranes pink and moist. NECK: Trachea midline. No JVD. CARDIOVASCULAR: Regular rate and rhythm. No murmur appreciated. RESPIRATORY: No accessory muscle use. Clear to auscultation. Breath sounds equal bilaterally. GASTROINTESTINAL: Abdomen soft, non-tender, nondistended. Hepatic and splenic margins not palpable. MUSCULOSKELETAL: No obvious deformities. No clubbing. No cyanosis. No edema. NEUROLOGICAL: Awake and alert. No obvious cranial nerve deficits. Motor grossly within normal limits. Normal speech. PSYCHIATRIC: Appropriate mood and affect; insight and judgment normal. Data Data Last Documented VS Vital Signs Date Time Temp Pulse Resp B/P Pulse Ox O2 Delivery O2 Flow Rate FiO2 05/05/16 12:02 250/118 05/05/16 11:39 50 99 Nasal Cannula 2 05/05/16 11:00 97.3 Orders Electrocardiogram (05/05/16 11:00) B-Type Natriuretic Peptide (05/05/16 11:00) Ckmb (Isoenzyme) Profile (05/05/16 11:00) Complete Blood Count With Diff (05/05/16 11:00) Comprehensive Metabolic Panel (05/05/16 11:00) Magnesium (Mg) (05/05/16 11:00) Prothrombin Time / Inr (Pt) (05/05/16 11:00) Act Partial Throm Time (Ptt) (05/05/16 11:00) Troponin I (05/05/16 11:00) Chest, Single Ap (05/05/16 11:00) Ecg Monitoring (05/05/16 11:00) Bilateral Bp Monitoring (05/05/16 11:00) Iv Access Insert/Monitor (05/05/16 11:00) Oximetry (05/05/16 11:00) Oxygen Administration (05/05/16 11:00) Sodium Chloride 0.9% Flush (Ns Flush) (05/05/16 11:00) Clonidine (Catapres) (05/05/16 11:00) Nitroprusside Inj (Nipride Inj) (05/05/16 11:30) Admit Order (Ed Use Only) (05/05/16 12:58) Labs Laboratory Tests Test 05/05/16 11:30 White Blood Count 8.1 TH/MM3 Red Blood Count 5.22 MIL/MM3 Hemoglobin 15.2 GM/DL Hematocrit 46.9 % Mean Corpuscular Volume 90.0 FL Mean Corpuscular Hemoglobin 29.2 PG Mean Corpuscular Hemoglobin 32.4 % Concent Red Cell Distribution Width 12.8 % Platelet Count 146 TH/MM3 Mean Platelet Volume 11.3 FL Neutrophils (%) (Auto) 67.3 % Lymphocytes (%) (Auto) 25.7 % Monocytes (%) (Auto) 5.3 % Eosinophils (%) (Auto) 1.1 % Basophils (%) (Auto) 0.6 % Neutrophils # (Auto) 5.4 TH/MM3 Lymphocytes # (Auto) 2.1 TH/MM3 Monocytes # (Auto) 0.4 TH/MM3 Eosinophils # (Auto) 0.1 TH/MM3 Basophils # (Auto) 0.0 TH/MM3 CBC Comment DIFF FINAL Differential Comment Prothrombin Time 11.1 SEC Prothromb Time International 1.0 RATIO Ratio Activated Partial 28.8 SEC Thromboplast Time Sodium Level 142 MEQ/L Potassium Level 3.7 MEQ/L Chloride Level 105 MEQ/L Carbon Dioxide Level 27.3 MEQ/L Anion Gap 10 MEQ/L Blood Urea Nitrogen 12 MG/DL Creatinine 0.84 MG/DL Estimat Glomerular Filtration 67 ML/MIN Rate Random Glucose 146 MG/DL Calcium Level 9.9 MG/DL Magnesium Level 1.8 MG/DL Total Bilirubin 0.5 MG/DL Aspartate Amino Transf 16 U/L (AST/SGOT) Alanine Aminotransferase 29 U/L (ALT/SGPT) Alkaline Phosphatase 82 U/L Total Creatine Kinase 67 U/L Troponin I LESS THAN 0.02 NG/ML B-Type Natriuretic Peptide 183 PG/ML Total Protein 7.4 GM/DL Albumin 3.9 GM/DL MDM Medical Decision Making Medical Screen Exam Complete: Yes Emergency Medical Condition: Yes Medical Record Reviewed: Yes Interpretation(s) EKG shows sinus bradycardia rate of 50 bpm with an LVH pattern. No signs of acute ST-T changes. Laboratory Tests Test 05/05/16 11:30 Hematocrit 46.9 % (35.0-46.0) Platelet Count 146 TH/MM3 (150-450) Mean Platelet Volume 11.3 FL (7.0-11.0) Estimat Glomerular Filtration 67 ML/MIN (>89) Rate Random Glucose 146 MG/DL (74-106) Troponin I LESS THAN 0.02 NG/ML (0.02-0.05) B-Type Natriuretic Peptide 183 PG/ML (0-100) Last 24 hours Impressions Chest X-Ray 05/05/16 1100 Signed Impressions: Service Date/Time: April 11:13 - CONCLUSION: No acute disease. Christoph Woodward MD FACR Differential Diagnosis Hypertensive emergency versus hypertensive urgency versus acute renal failure Narrative Course Clonidine and was given by mouth in the ER without significant decrease in blood pressure. Patient has no acute focal deficits neurologically currently. She is conversant. Her blood pressure is still fairly elevated in the ER and nitroprusside drip was initiated in the ER. EKG shows LVH which patient has had before. Lab work did not indicate significant metabolic issues or renal function changes. Cardiac enzymes are negative and does not indicate significant cardiac affects. My plan would be to admit the patient for further treatment. On reevaluation of blood pressure after clonidine had been given and as they were about to start nitroprusside IV, her blood pressure had come down considerably and the medication was held. Case was then discussed with Dr. Sullivan for admission. Diagnosis Primary Impression: Hypertensive urgency Admitting Information Admitting Physician Requests: Manolo Flores MD May 05, 2016 11:06 sign assessments/reviewing monitor data, ordering and reviewing lab tests, ordering and interpreting/reviewing x-rays and diagnostic studies, care of the patient and discussion of the patient with the admitting physicians. Diagnosis Primary Impression: Hypertensive urgency Admitting Information Admitting Physician Requests: Manolo Flores MD May 05, 2016 11:06
--- NOTE | 2016-05-05 11:16 | RADRPT ---
EXAM DATE/TIME: 05/05/2016 11:13 [facility] COMPARISON: CHEST SINGLE AP, April 04, 2016, 19:59. INDICATIONS : Palpitations MEDICAL HISTORY : None. SURGICAL HISTORY : None. ENCOUNTER: Initial ACUITY: 1 day PAIN SCORE: 7/10 LOCATION: chest FINDINGS: A single view of the chest demonstrates the lungs to be symmetrically aerated without evidence of mas s, infiltrate or effusion. The cardiomediastinal contours are unremarkable. Osseous structures are intact. CONCLUSION: No acute disease. Christoph Woodward MD FACR on May 05, 2016 at 11:14 Board Certified Radiologist. This report was verified electronically.
[2016-05-05] MEDS ORDERED: NITROPRUSSIDE INJ 50 MG in DEXTROSE 5% IN WATER INJ 248 ML IV SCH ×2 (11:30)
[2016-05-05 11:43] LABS: AUTOMATED NEUTROPHIL # 5.4 TH/MM3 (1.8-7.7); BASOPHIL % 0.6 % (0.0-2.0); EOSINOPHIL # 0.1 TH/MM3 (0-0.4); EOSINOPHIL % 1.1 % (0.0-4.0); HEMATOCRIT 46.9 % (35.0-46.0); HEMO FLAGS DIFF FINAL; LYMPH % 25.7 % (9.0-44.0); LYMPHOCYTE # 2.1 TH/MM3 (1.0-4.8); MEAN CORPUSCULAR HEMOGLOBIN 29.2 PG (27.0-34.0); MEAN CORPUSCULAR HGB CONC 32.4 % (32.0-36.0); MONO % 5.3 % (0.0-8.0); NEUT % 67.3 % (16.0-70.0); PLATELET COUNT 146 TH/MM3 (150-450); RED BLOOD COUNT 5.22 MIL/MM3 (4.00-5.30); RED CELL DISTRIBUTION WIDTH 12.8 % (11.6-17.2); WHITE BLOOD COUNT 8.1 TH/MM3 (4.0-11.0)
[2016-05-05 11:54] LABS: APTT (PATIENT) 28.8 SEC (24.3-30.1); PROTHROMBIN TIME - PATIENT 11.1 SEC (9.8-11.6)
[2016-05-05 12:01] LABS: ANION GAP 10 MEQ/L (5-15); AST (GOT) 16 U/L (15-37); BICARBONATE 27.3 MEQ/L (21.0-32.0); BLOOD UREA NITROGEN 12 MG/DL (7-18); CHLORIDE 105 MEQ/L (98-107); GLOMERULAR FILTRATION RATE 67 ML/MIN (>89); MAGNESIUM 1.8 MG/DL (1.5-2.5); POTASSIUM 3.7 MEQ/L (3.5-5.1); SODIUM (NA) 142 MEQ/L (136-145)
[2016-05-05 12:06] LABS: ALKALINE PHOSPHATASE 82 U/L (45-117); ALT (GPT) 29 U/L (10-53); TOTAL BILIRUBIN ADULT 0.5 MG/DL (0.2-1.0)
[2016-05-05 12:14] LABS: CREATINE KINASE 67 U/L (26-192)
[2016-05-05] MEDS ORDERED: ONDANSETRON HCL 4 MG/2 ML VIAL IVP PRN (13:30)
[2016-05-05] MEDS ORDERED: SODIUM CHLORIDE 0.9% FLUSH 5 ML FLUSH FLUSH PRN (13:30)
[2016-05-05] MEDS ORDERED: ACETAMINOPHEN 325 MG TAB PO PRN (13:30)
[2016-05-05] MEDS ORDERED: NALOXONE HCL 0.4 MG/ML AMP IV PRN (13:30)
--- NOTE | 2016-05-05 13:34 | HHI.HP ---
[facility]Staff Admission Diagnosis hypertensive urgency Diagnoses: (1) Hypertensive urgency Chief Complaint: Headaches Travel History International Travel<30 Days: No Contact w/Intl Traveler <30 Da: No Traveled to Known Affected Are: No History of Present Illness 71-year-old female with history of diabetes type 2, hypertension, hyperlipidemia, and recent Wide excision of left breast abscess febrile 2016 was brought to the ED for evaluation of elevated blood pressure. Apparently, her home health care nurse was told by her place to check a chronic left breast wounds and found patient to have extremely elevated BP for which EMS was called and patient was found to have systolic over 300. Her only complain was headaches but she has no focal deficit and denies any visual change. In the ED patient was given clonidine 0.2 which improvement of BP, and when patient was seen by systolic was 180. She stated, she has been compliant for medications. There is no chest pain, GI bleed. Review of Systems Other 12 systems reviewed and are negative except for the one mentioned in history of present illness Past Family Social History Past Medical History Hypertension Hyperlipidemia Renal artery stenosisstatus post stenting in 2013 Diabetes Dementia Past Surgical History Wide excision of necrotic skin subcutaneous tissue and breast tissue left breast 04/05/16 Lap cholecystectomy 2016 Hysterectomy Thyroid surgery Back surgery Reported Medications Sertraline (Sertraline HCl) 25 Mg Tab 25 Mg PO DAILY Donepezil 23 Mg Tab 23 Mg PO HS Do not split, crush or chew. Januvia (Sitagliptin Phosphate) 100 Mg Tab 100 Mg PO DAILY Prilosec (Omeprazole) 20 Mg Cap 20 Mg PO DAILY Losartan (Losartan Potassium) 25 Mg Tab 25 Mg PO DAILY Lisinopril 20 Mg Tab 20 Mg PO BID Hydralazine (Hydralazine HCl) 50 Mg Tab 50 Mg PO TID Take with a meal Lasix (Furosemide) 20 Mg Tab 20 Mg PO DAILY Plavix (Clopidogrel Bisulfate) 75 Mg Tab 75 Mg PO DAILY Coreg (Carvedilol) 6.25 Mg Tab 6.25 Mg PO BID Lipitor (Atorvastatin Calcium) 40 Mg Tab 40 Mg PO HS Norvasc (Amlodipine Besylate) 10 Mg Tab 10 Mg PO DAILY Allergies: Coded Allergies: Cultivated Oat Pollen (Verified Allergy, Severe, 04/03/16) Dust (Verified Allergy, Severe, 04/03/16) Peanut (Verified Allergy, Severe, 04/03/16) Aspirin (Verified Allergy, Mild, 04/03/16) states it makes her stomach upset, but she can take it Egg Allergy (Verified Allergy, Mild, 04/03/16) Codeine (Verified Adverse Reaction, Intermediate, NAUSEA, 04/03/16) Family History Patient was adopted Social History Alcohol Use: No Tobacco Use: Yes (1 PPD) Substance Use: No Physical Exam Vital Signs Vital Signs Date Time Temp Pulse Resp B/P Pulse Ox O2 Delivery O2 Flow Rate FiO2 05/05/16 12:02 250/118 05/05/16 11:39 50 99 Nasal Cannula 2 05/05/16 11:19 300/140 290/120 05/05/16 11:13 Nasal Cannula 2 05/05/16 11:13 93 Room Air 05/05/16 11:00 97.3 50 93 Physical Exam GENERAL: This is a well-nourished, well-developed patient, in no apparent distress. SKIN: No rashes, ecchymoses or lesions. Cool and dry. HEAD: Atraumatic. Normocephalic. No temporal or scalp tenderness. EYES: Pupils equal round and reactive. Extraocular motions intact. No scleral icterus. No injection or drainage. ENT: Nose without bleeding, purulent drainage or septal hematoma. Throat without erythema, tonsillar hypertrophy or exudate. Uvula midline. Airway patent. NECK: Trachea midline. No JVD or lymphadenopathy. Supple, nontender, no meningeal signs. CARDIOVASCULAR: Regular rate and rhythm without murmurs, gallops, or rubs. RESPIRATORY: Clear to auscultation. Breath sounds equal bilaterally. No wheezes , rales, or rhonchi. GASTROINTESTINAL: Abdomen soft, non-tender, nondistended. No hepato-splenomegaly , or palpable masses. No guarding. MUSCULOSKELETAL: Extremities without clubbing, cyanosis, or edema. No joint tenderness, effusion, or edema noted. No calf tenderness. Negative Homans sign bilaterally. NEUROLOGICAL: Awake and alert. Cranial nerves II through XII intact. Motor and sensory grossly within normal limits. Five out of 5 muscle strength in all muscle groups. Normal speech. Laboratory Laboratory Tests Test 05/05/16 11:30 White Blood Count 8.1 Red Blood Count 5.22 Hemoglobin 15.2 Hematocrit 46.9 Mean Corpuscular Volume 90.0 Mean Corpuscular Hemoglobin 29.2 Mean Corpuscular Hemoglobin 32.4 Concent Red Cell Distribution Width 12.8 Platelet Count 146 Mean Platelet Volume 11.3 Neutrophils (%) (Auto) 67.3 Lymphocytes (%) (Auto) 25.7 Monocytes (%) (Auto) 5.3 Eosinophils (%) (Auto) 1.1 Basophils (%) (Auto) 0.6 Neutrophils # (Auto) 5.4 Lymphocytes # (Auto) 2.1 Monocytes # (Auto) 0.4 Eosinophils # (Auto) 0.1 Basophils # (Auto) 0.0 CBC Comment DIFF FINAL Differential Comment Prothrombin Time 11.1 Prothromb Time International 1.0 Ratio Activated Partial 28.8 Thromboplast Time Sodium Level 142 Potassium Level 3.7 Chloride Level 105 Carbon Dioxide Level 27.3 Anion Gap 10 Blood Urea Nitrogen 12 Creatinine 0.84 Estimat Glomerular Filtration 67 Rate Random Glucose 146 Calcium Level 9.9 Magnesium Level 1.8 Total Bilirubin 0.5 Aspartate Amino Transf 16 (AST/SGOT) Alanine Aminotransferase 29 (ALT/SGPT) Alkaline Phosphatase 82 Total Creatine Kinase 67 Troponin I LESS THAN 0.02 B-Type Natriuretic Peptide 183 Total Protein 7.4 Albumin 3.9 Result Diagram: 05/05/16 1130 05/05/16 1130 Assessment and Plan Problem List: (1) Hypertensive urgency ICD Code: I10 Status: Acute (2) Abscess of left breast ICD Code: N61.1 Status: Chronic (3) DM2 (diabetes mellitus, type 2) ICD Code: E11.9 Status: Chronic (4) Cardiomyopathy ICD Code: I42.9 Status: Chronic Assessment and Plan 71-year-old female with Hypertensive urgency: May be secondary to noncompliance; as this has resolved since with treatment with clonidine 0.2 mg, will discontinue nitroglycerin drip and resume outpatient medications including Coreg 6.25 mg by mouth twice a day, Prinivil 20 twice a day, Norvasc 10 mg daily, losartan 25 mg daily, Lasix 20 mg daily And hydralazine when necessary . She no longer requires ICU admission. Continue to monitor BP Diabetes type 2: Start insulin sliding scale with fingerstick blood glucose monitoring and resume outpatient medication. Hyperlipidemia: Resume Lipitor Dementia: Resume Aricept CAD/cardiomyopathy: Resume outpatient medications including Plavix, Coreg Recent excision left breast abscess:wound Care nurse consult DVT prophylaxis: Bilateral SCDs Code Status Full code Discussed Condition With Patient's, ED physician Physician Certification 2 Midnight Certification Type: Admission for Inpatient Services Order for Inpatient Services The services are ordered in accordance with Medicare regulations or non- Medicare payer requirements, as applicable. In the case of services not specified as inpatient-only, they are appropriately provided as inpatient services in accordance with the 2-midnight benchmark. Estimated LOS (days): 2 days is the estimated time the patient will need to remain in the hospital, assuming treatment plan goals are met and no additional complications. Post-Hospital Plan: Not yet determined Virgil Sullivan MD May 05, 2016 13:34
[2016-05-05] MEDS ORDERED: DEXTROSE 50% IN WATER 50 ML VIAL(D50) IV PUSH PRN (13:45)
[2016-05-05] MEDS ORDERED: GLUCAGON 1 MG/ML VIAL OTHER PRN (13:45)
[2016-05-05] MEDS ORDERED: PILL SPLITTER OTHER PRN (13:45)
[2016-05-05] MEDS: metroNIDAZOLE 500 MG TAB PO SCH ×2 (14:00→21:18)
[2016-05-05] MEDS: INSULIN ASPART SUPPLEMENTAL SCALE SQ SCH ×2 (16:00→21:00)
[2016-05-05] MEDS: hydrALAZINE HCL 50 MG TAB PO SCH (16:38)
[2016-05-05] MEDS: LISINOPRIL 20 MG TAB PO SCH (21:18)
[2016-05-05] MEDS: hydrALAZINE HCL 25 MG TAB PO PRN (21:18)
[2016-05-05] MEDS: CARVEDILOL 6.25 MG TAB PO SCH (21:18)
[2016-05-05] MEDS: ATORVASTATIN 40 MG TAB PO SCH (21:18)
[2016-05-05] MEDS: SODIUM CHLORIDE 0.9% FLUSH 5 ML FLUSH FLUSH SCH (21:19)
[2016-05-05] MEDS: DONEPEZIL HCL 23 MG TAB PO SCH (22:45)
[2016-05-06] VITALS (11 sets, daily range): BP systolic 152–188; BP diastolic 76–106; PULSE 53–73; RESP 16–20; TEMP 96.7–98.6; O2SAT 92–96
[2016-05-06] MEDS: hydrALAZINE HCL 25 MG TAB PO PRN ×2 (01:41→18:15)
[2016-05-06] MEDS: ACETAMINOPHEN 325 MG TAB PO PRN ×2 (01:49→11:21)
[2016-05-06] MEDS: metroNIDAZOLE 500 MG TAB PO SCH ×3 (05:56→21:47)
[2016-05-06] MEDS: INSULIN ASPART SUPPLEMENTAL SCALE SQ SCH ×4 (06:05→20:35)
[2016-05-06 07:33] LABS: AUTOMATED NEUTROPHIL # 3.5 TH/MM3 (1.8-7.7); BASOPHIL % 0.5 % (0.0-2.0); EOSINOPHIL # 0.2 TH/MM3 (0-0.4); EOSINOPHIL % 2.3 % (0.0-4.0); HEMATOCRIT 41.6 % (35.0-46.0); HEMO FLAGS DIFF FINAL; LYMPHOCYTE # 3.2 TH/MM3 (1.0-4.8); MEAN CELL VOLUME 89.3 FL (80.0-100.0); MEAN CORPUSCULAR HEMOGLOBIN 29.1 PG (27.0-34.0); MEAN CORPUSCULAR HGB CONC 32.5 % (32.0-36.0); MONO % 6.7 % (0.0-8.0); NEUT % 47.5 % (16.0-70.0); PLATELET COUNT 140 TH/MM3 (150-450); RED BLOOD COUNT 4.66 MIL/MM3 (4.00-5.30); RED CELL DISTRIBUTION WIDTH 12.5 % (11.6-17.2); WHITE BLOOD COUNT 7.5 TH/MM3 (4.0-11.0)
[2016-05-06 07:55] LABS: ALKALINE PHOSPHATASE 77 U/L (45-117); ALT (GPT) 24 U/L (10-53); ANION GAP 8 MEQ/L (5-15); AST (GOT) 12 U/L (15-37); BICARBONATE 25.9 MEQ/L (21.0-32.0); BLOOD UREA NITROGEN 21 MG/DL (7-18); CHLORIDE 108 MEQ/L (98-107); GLOMERULAR FILTRATION RATE 58 ML/MIN (>89); POTASSIUM 3.6 MEQ/L (3.5-5.1); SODIUM (NA) 142 MEQ/L (136-145); TOTAL BILIRUBIN ADULT 0.3 MG/DL (0.2-1.0)
[2016-05-06] MEDS: PANTOPRAZOLE SOD 20 MG DELAYED RELEASE TAB PO SCH (09:01)
[2016-05-06] MEDS: FUROSEMIDE 20 MG TAB PO SCH (09:01)
[2016-05-06] MEDS: hydrALAZINE HCL 50 MG TAB PO SCH ×3 (09:01→16:56)
[2016-05-06] MEDS: LOSARTAN 25 MG TAB PO SCH (09:01)
[2016-05-06] MEDS: LISINOPRIL 20 MG TAB PO SCH ×2 (09:01→20:34)
[2016-05-06] MEDS: CLOPIDOGREL 75 MG TAB PO SCH (09:02)
[2016-05-06] MEDS: SERTRALINE HCL 50 MG TAB PO SCH (09:02)
[2016-05-06] MEDS: CARVEDILOL 6.25 MG TAB PO SCH ×2 (09:02→20:34)
[2016-05-06] MEDS: SODIUM CHLORIDE 0.9% FLUSH 5 ML FLUSH FLUSH SCH ×2 (09:04→20:33)
--- NOTE | 2016-05-06 10:18 | HHI.FF ---
Face to Face Verification Diagnosis: (1) Hypertensive urgency (2) Abscess of left breast (3) DM2 (diabetes mellitus, type 2) Home Health Nursing Order: Wound care and dressing changes I have seen patient Caprice South on 05/06/16. My clinical findings support the need for the requested home health care services because: Deconditioned w/ increased weakness I certify that my clinical findings support that this patient is homebound because: Poor cardiac reserve Virgil Sullivan MD May 06, 2016 10:18
--- NOTE | 2016-05-06 10:18 | HHI.PR ---
Subjective Remarks Follow-up hypertensive urgency 05/06/16-patient seen and examined me complains of mild headaches but no blurry vision. BP still labile despite oral meds morning. Afebrile Objective Vitals Vital Signs Date Time Temp Pulse Resp B/P Pulse Ox O2 Delivery O2 Flow Rate FiO2 05/06/16 10:02 188/76 05/06/16 09:05 68 05/06/16 04:00 97.5 60 18 173/78 93 05/06/16 01:37 98.5 55 20 171/106 92 05/06/16 00:00 96.7 54 18 164/77 93 05/05/16 22:53 98.8 55 20 171/76 93 05/05/16 20:16 65 05/05/16 20:00 97.9 59 20 182/77 93 05/05/16 16:30 97.6 77 18 167/86 98 05/05/16 15:06 56 16 147/66 99 Nasal Cannula 2 05/05/16 12:02 250/118 05/05/16 11:39 50 99 Nasal Cannula 2 05/05/16 11:19 300/140 290/120 05/05/16 11:13 Nasal Cannula 2 05/05/16 11:13 93 Room Air 05/05/16 11:00 97.3 50 93 I/O 05/05/16 05/05/16 05/05/16 05/06/16 05/06/16 05/06/16 07:00 15:00 23:00 07:00 15:00 23:00 Intake Total 240 ml 720 ml Balance 240 ml 720 ml Intake Oral 240 ml 720 ml # Voids 0 # Bowel Movements 0 Result Diagram: 05/06/16 0606 05/06/16 0606 Imaging Last Impressions Chest X-Ray 05/05/16 1100 Signed Impressions: Service Date/Time: April 11:13 - CONCLUSION: No acute disease. Christoph Woodward MD FACR Objective Remarks GENERAL: NAD SKIN: Warm and dry. HEAD: Normocephalic. EYES: No scleral icterus. No injection or drainage. NECK: Supple, trachea midline. No JVD or lymphadenopathy. CARDIOVASCULAR: Regular rate and rhythm without murmurs, gallops, or rubs. RESPIRATORY: Breath sounds equal bilaterally. No accessory muscle use. GASTROINTESTINAL: Abdomen soft, non-tender, nondistended. MUSCULOSKELETAL: No cyanosis, or edema. BACK: Nontender without obvious deformity. No CVA tenderness. A/P Problem List: (1) Hypertensive urgency ICD Code: I10 Status: Acute (2) Abscess of left breast ICD Code: N61.1 Status: Chronic (3) DM2 (diabetes mellitus, type 2) ICD Code: E11.9 Status: Chronic (4) Cardiomyopathy ICD Code: I42.9 Status: Chronic Assessment and Plan 71-year-old female with Hypertensive urgency: Resolved. Continue outpatient medications including Coreg 6.25 mg by mouth twice a day, Prinivil 20 twice a day, Norvasc 10 mg daily , losartan 25 mg daily, Lasix 20 mg daily And hydralazine when necessary . Continue to monitor BP Diabetes type 2: Continue insulin sliding scale with fingerstick blood glucose monitoring and resume outpatient medication. Hyperlipidemia: on Lipitor Dementia: on Aricept CAD/cardiomyopathy: Continue outpatient medications including Plavix, Coreg Recent excision left breast abscess:wound Care nurse consult pending DVT prophylaxis: Bilateral SCDs Discharge Planning Likely discharge 05/07/16 Virgil Sullivan MD May 06, 2016 10:18
--- NOTE | 2016-05-06 15:50 | EKG ---
Date Performed: 05/05/2016 Time Performed: 11:04:08 PTAGE: 71 years EKG: SINUS BRADYCARDIA LEFT VENTRICULAR HYPERTROPHY AND ST-T CHANGE POSSIBLE SEPTAL MYOCARDIAL I NFARCTION ABNORMAL ECG PREVIOUS TRACING : 06/29/2015 17.49 Compared to previous tracing, the patient is now bradycardi c. DOCTOR: Mariama Conde Interpretating Date/Time 05/06/2016 15:49:06
[2016-05-06] MEDS: ATORVASTATIN 40 MG TAB PO SCH (20:34)
[2016-05-06] MEDS ORDERED: ALPRAZolam 0.25 MG TAB PO ONE ×2 (21:30)
[2016-05-06] MEDS: DONEPEZIL HCL 23 MG TAB PO SCH (21:46)
[2016-05-07] VITALS: BP 158/68; PULSE 68; RESP 18; TEMP 97.2; O2SAT 94
[2016-05-07] MEDS: ACETAMINOPHEN 325 MG TAB PO PRN ×2 (03:06→08:49)
[2016-05-07 04:00] VITALS: BP 158/66; PULSE 68; RESP 18; TEMP 97.8; O2SAT 94
[2016-05-07] MEDS: metroNIDAZOLE 500 MG TAB PO SCH (05:31)
[2016-05-07] MEDS: INSULIN ASPART SUPPLEMENTAL SCALE SQ SCH ×2 (05:32→11:24)
[2016-05-07 08:15] VITALS: BP 153/75; PULSE 61; RESP 20; TEMP 98.1; O2SAT 92
[2016-05-07] MEDS: PANTOPRAZOLE SOD 20 MG DELAYED RELEASE TAB PO SCH (08:41)
[2016-05-07] MEDS: LOSARTAN 25 MG TAB PO SCH (08:41)
[2016-05-07] MEDS: CARVEDILOL 6.25 MG TAB PO SCH (08:41)
[2016-05-07] MEDS: FUROSEMIDE 20 MG TAB PO SCH (08:42)
[2016-05-07] MEDS: hydrALAZINE HCL 50 MG TAB PO SCH (08:42)
[2016-05-07] MEDS: SERTRALINE HCL 50 MG TAB PO SCH (08:42)
[2016-05-07] MEDS: LISINOPRIL 20 MG TAB PO SCH (08:42)
[2016-05-07] MEDS: CLOPIDOGREL 75 MG TAB PO SCH (08:42)
[2016-05-07] MEDS: SODIUM CHLORIDE 0.9% FLUSH 5 ML FLUSH FLUSH SCH (08:53)
[2016-05-07] MEDS ORDERED: POTA10TA2 PO (09:48)
--- NOTE | 2016-05-07 09:50 | HHI.PR ---
Subjective Remarks Follow-up hypertensive urgency 05/06/16-patient seen and examined me complains of mild headaches but no blurry vision. BP still labile despite oral meds morning. Afebrile 05/07/16-patient seen and examined, vitals stable and no acute event overnight. Discussed the importance of compliance with medication Objective Vitals Vital Signs Date Time Temp Pulse Resp B/P Pulse Ox O2 Delivery O2 Flow Rate FiO2 05/07/16 08:15 98.1 61 20 153/75 92 05/07/16 04:00 Room Air 05/07/16 04:00 97.8 68 18 158/66 94 05/07/16 00:00 Room Air 05/07/16 00:00 97.2 68 18 158/68 94 05/06/16 20:00 64 05/06/16 20:00 Room Air 05/06/16 20:00 97.5 66 18 168/76 93 05/06/16 20:00 Room Air 05/06/16 18:59 73 96 05/06/16 16:01 98.6 56 16 184/84 94 05/06/16 12:00 98.0 53 20 183/83 92 05/06/16 11:25 60 152/78 05/06/16 10:02 188/76 I/O 05/06/16 05/06/16 05/06/16 05/07/16 05/07/16 05/07/16 07:00 15:00 23:00 07:00 15:00 23:00 Intake Total 720 ml 602 ml 360 ml Balance 720 ml 602 ml 360 ml Intake Oral 720 ml 600 ml 360 ml IV Total 2 ml # Voids 0 1 3 # Bowel Movements 0 0 0 Result Diagram: 05/06/16 0606 05/06/16 0606 Imaging Last Impressions Chest X-Ray 05/05/16 1100 Signed Impressions: Service Date/Time: April 11:13 - CONCLUSION: No acute disease. Christoph Woodward MD FACR Objective Remarks GENERAL: NAD SKIN: Warm and dry. HEAD: Normocephalic. EYES: No scleral icterus. No injection or drainage. NECK: Supple, trachea midline. No JVD or lymphadenopathy. CARDIOVASCULAR: Regular rate and rhythm without murmurs, gallops, or rubs. RESPIRATORY: Breath sounds equal bilaterally. No accessory muscle use. GASTROINTESTINAL: Abdomen soft, non-tender, nondistended. MUSCULOSKELETAL: No cyanosis, or edema. BACK: Nontender without obvious deformity. No CVA tenderness. Procedures none A/P Problem List: (1) Hypertensive urgency ICD Code: I16.0 Status: Resolved (2) Abscess of left breast ICD Code: N61.1 Status: Chronic (3) DM2 (diabetes mellitus, type 2) ICD Code: E11.9 Status: Chronic (4) Cardiomyopathy ICD Code: I42.9 Status: Chronic Assessment and Plan 71-year-old female with Hypertensive urgency: Resolved. Continue outpatient medications including Coreg 6.25 mg by mouth twice a day, Prinivil 20 twice a day, Norvasc 10 mg daily , losartan 25 mg daily, Lasix 20 mg daily And hydralazine when necessary . Continue to monitor BP Diabetes type 2: Continue insulin sliding scale with fingerstick blood glucose monitoring and continue outpatient medication. Hyperlipidemia: on Lipitor Dementia: on Aricept CAD/cardiomyopathy: Continue outpatient medications including Plavix, Coreg Recent excision left breast abscess:wound Care nurse consult pending DVT prophylaxis: Bilateral SCDs Discharge Planning Likely discharge 05/07/16 Virgil Sullivan MD May 07, 2016 09:50
--- NOTE | 2016-05-07 09:53 | HHI.DS ---
Discharge Summary Admission Date May 05, 2016 at 13:01 Discharge Date: May 07, 2016 Admitting Diagnosis hypertensive urgency (1) Hypertensive urgency ICD Code: I16.0 (2) Abscess of left breast ICD Code: N61.1 (3) DM2 (diabetes mellitus, type 2) ICD Code: E11.9 (4) Cardiomyopathy ICD Code: I42.9 Procedures none Brief History - From Admission 71-year-old female with history of diabetes type 2, hypertension, hyperlipidemia, and recent Wide excision of left breast abscess febrile 2016 was brought to the ED for evaluation of elevated blood pressure. Apparently, her home health care nurse was told by her place to check a chronic left breast wounds and found patient to have extremely elevated BP for which EMS was called and patient was found to have systolic over 300. Her only complain was headaches but she has no focal deficit and denies any visual change. In the ED patient was given clonidine 0.2 which improvement of BP, and when patient was seen by systolic was 180. She stated, she has been compliant for medications. There is no chest pain, GI bleed. CBC/BMP: 05/06/16 0606 05/06/16 0606 Significant Findings Laboratory Tests Test 05/05/16 05/06/16 11:30 06:06 Hematocrit 46.9 % (35.0-46.0) Platelet Count 146 TH/MM3 140 TH/MM3 (150-450) (150-450) Mean Platelet Volume 11.3 FL 11.9 FL (7.0-11.0) (7.0-11.0) Estimat Glomerular Filtration 67 ML/MIN (>89) 58 ML/MIN (>89) Rate Random Glucose 146 MG/DL 162 MG/DL (74-106) (74-106) Troponin I LESS THAN 0.02 NG/ML (0.02-0.05) B-Type Natriuretic Peptide 183 PG/ML (0-100) Chloride Level 108 MEQ/L (98-107) Blood Urea Nitrogen 21 MG/DL (7-18) Aspartate Amino Transf 12 U/L (15-37) (AST/SGOT) Total Protein 6.2 GM/DL (6.4-8.2) Albumin 3.3 GM/DL (3.4-5.0) Imaging Last Impressions Chest X-Ray 05/05/16 1100 Signed Impressions: Service Date/Time: April 11:13 - CONCLUSION: No acute disease. Christoph Woodward MD FACR PE at Discharge GENERAL: NAD SKIN: Warm and dry. HEAD: Normocephalic. EYES: No scleral icterus. No injection or drainage. NECK: Supple, trachea midline. No JVD or lymphadenopathy. CARDIOVASCULAR: Regular rate and rhythm without murmurs, gallops, or rubs. RESPIRATORY: Breath sounds equal bilaterally. No accessory muscle use. GASTROINTESTINAL: Abdomen soft, non-tender, nondistended. MUSCULOSKELETAL: No cyanosis, or edema. BACK: Nontender without obvious deformity. No CVA tenderness. Hospital Course Patient presented initially with hypertensive urgency for which she was treated in the ED with clonidine, and BP improved therefore there is no need at a time to start patient on a drip. Home medications were resumed with subsequent improvement of BP prior to discharge. Wound care nurse was consulted and patient continue to receive treatment for left breast abscess. She was placed on sliding-scale insulin and outpatient regimens were resumed for diabetes, hyperlipidemia, dementia and other chronic medical conditions. DVT and GI prophylaxis were provided. Pt Condition on Discharge: Fair Discharge Disposition: Disch w/ Home Health Serv Discharge Time: > 30 minutes Discharge Instructions DIET: Follow Instructions for: Diabetic Diet Activities you can perform: Regular-No Restrictions Follow up Referrals: PCP Follow-up - 1 Week New Medications: Potassium Chloride ER (Potassium Chloride ER) 10 Meq Tab 10 MEQ PO DAILY Electrolyte Replacement #30 Ref 0 TAB Continued Medications: Amlodipine (Norvasc) 10 Mg Tab 10 MG PO DAILY Blood Pressure Management #30 Ref 0 TAB Atorvastatin (Lipitor) 40 Mg Tab 40 MG PO HS Cholesterol Management #30 Ref 0 TAB Carvedilol (Coreg) 6.25 Mg Tab 6.25 MG PO BID #60 Ref 0 TAB Clopidogrel (Plavix) 75 Mg Tab 75 MG PO DAILY Blood Clot Prevention #30 Ref 0 TAB Donepezil (Donepezil) 23 Mg Tab 23 MG PO HS Do not split, crush or chew. Dementia #30 Ref 0 TAB Furosemide (Lasix) 20 Mg Tab 20 MG PO DAILY #30 Ref 0 TAB Hydralazine (Hydralazine) 50 Mg Tab 50 MG PO TID Take with a meal Blood Pressure Management Ref 0 TAB Lisinopril (Lisinopril) 20 Mg Tab 20 MG PO BID #30 Ref 0 TAB Losartan (Losartan) 25 Mg Tab 25 MG PO DAILY Blood Pressure Management #30 Ref 0 TAB Metronidazole (Flagyl) 500 Mg Tab 500 MG PO Q8HR Infection Days 7 TAB Omeprazole (Prilosec) 20 Mg Cap 20 MG PO DAILY #30 Ref 0 CAP Sertraline (Sertraline) 25 Mg Tab 25 MG PO DAILY #30 Ref 0 TAB Sitagliptin (Januvia) 100 Mg Tab 100 MG PO DAILY Blood Sugar Management #30 Ref 0 TAB Virgil Sullivan MD May 07, 2016 09:53
== END 2016-05-07 11:50 | disposition home health service (06) | DRG 305 ==
LOC: NEPC 10:57 → NEDA 13:01 → N04B 15:44 → N04A 05-06 15:00
PROVIDERS: ADMIT Hospitalist; ATTEND Hospitalist
DX: I16.0 Hypertensive urgency (principal); I42.9 Cardiomyopathy, unspecified; F03.90 Unspecified dementia, unspecified severity, without behavioral disturbance, psychotic disturbance, mood disturbance, and anxiety; E11.9 Type 2 diabetes mellitus without complications; Z79.84 Long term (current) use of oral hypoglycemic drugs; E78.5 Hyperlipidemia, unspecified; I10 Essential (primary) hypertension; Z91.14 Patient's other noncompliance with medication regimen; Z98.890 Other specified postprocedural states; F17.210 Nicotine dependence, cigarettes, uncomplicated; I25.10 Atherosclerotic heart disease of native coronary artery without angina pectoris; I25.2 Old myocardial infarction; E78.00 Pure hypercholesterolemia, unspecified
CPT/HCPCS: 71010; 80053; 82550; 82948; 83735; 83880; 84484; 85025; 85610; 85730; 93005; 96365; J1815; J7060

== ENCOUNTER 2017-02-11 15:59 | Inpatient (IN) | payer OTHER, MEDICAID, MEDICARE ==
[~2017-02-11] VITALS: Ht 160 cm; Wt 92.3 kg
[2017-02-11] VITALS (15 sets, daily range): BP systolic 145–236; BP diastolic 71–132; PULSE 59–85; RESP 14–20; TEMP 99; O2SAT 93–99
[~2017-02-11 15:59] MED LIST changes: -ADVA500A INH; -ALEN1TAB48 PO; -BUTA1TAB30 PO; -CIPR-9 PO; -CLON0.2T PO; -HYDR-3580 PO; -HYDR25TA5 PO; +POTA10TA2 PO; -REST0.05 EACH EYE
[2017-02-11] MEDS ORDERED: IOHEXOL 350 MG/ML 10 ML VIAL (for RAD DIAG) IVCONTRAST ONE (16:00)
[2017-02-11] MEDS ORDERED: SODIUM CHLOR 0.9% 1000 ML INJ 1,000 ML IV ONE (16:02)
[2017-02-11] MEDS ORDERED: FOSPHENYTOIN INJ 1,000 MGPE in SODIUM CHLORIDE 0.9% INJ 50 ML IV ONE (16:15)
[2017-02-11] MEDS ORDERED: LORazepam 2 MG/ML VIAL IV PUSH ONE (16:15)
[2017-02-11] MEDS ORDERED: ONDANSETRON HCL 4 MG/2 ML VIAL IV PUSH ONE (16:15)
[2017-02-11 16:28] LABS: BASOPHIL % 0.5 % (0.0-2.0); EOSINOPHIL # 0.1 TH/MM3 (0-0.4); EOSINOPHIL % 1.2 % (0.0-4.0); HEMOGLOBIN 16.7 GM/DL (11.6-15.3); LYMPH % 43.8 % (9.0-44.0); LYMPHOCYTE # 4.5 TH/MM3 (1.0-4.8); MEAN CELL VOLUME 90.6 FL (80.0-100.0); MEAN CORPUSCULAR HEMOGLOBIN 29.7 PG (27.0-34.0); MEAN CORPUSCULAR HGB CONC 32.7 % (32.0-36.0); MONO % 5.7 % (0.0-8.0); MONOCYTE # 0.6 TH/MM3 (0-0.9); NEUT % 48.8 % (16.0-70.0); PLATELET COUNT 165 TH/MM3 (150-450); RED BLOOD COUNT 5.63 MIL/MM3 (4.00-5.30); RED CELL DISTRIBUTION WIDTH 12.8 % (11.6-17.2); WHITE BLOOD COUNT 10.2 TH/MM3 (4.0-11.0)
--- NOTE | 2017-02-11 16:41 | RADRPT ---
EXAM DATE/TIME: 02/11/2017 16:04 [facility] COMPARISON: No previous studies available for comparison. INDICATIONS : Stroke alert; left side weakness, seizure-like activity. RADIATION DOSE: 56.35 CTDIvol (mGy) This report was called by Dr. Welsh to Dr. Dietrich at 1635 MEDICAL HISTORY : Unknown SURGICAL HISTORY : Unknown ENCOUNTER: Initial ACUITY: 1 day PAIN SCALE: Non-responsive LOCATION: cranial TECHNIQUE: Multiple contiguous axial images were obtained of the head. Using automated exposure control and adj ustment of the mA and/or kV according to patient size, radiation dose was kept as low as reasonably a chievable to obtain optimal diagnostic quality images. DICOM format image data is available electro nically for review and comparison. FINDINGS: CEREBRUM: There is evidence of an old left thalamic infarct measuring 2.4 cm in diameter. It has CSF density. M oderate periventricular white matter hypodensity indicates chronic small vessel ischemic change. No e vidence of acute intracranial hemorrhage or extra-axial fluid collection. No mass effect or midline s hift. Hernandez matter-white matter differentiation within normal limits. POSTERIOR FOSSA: The cerebellum and brainstem are intact. The 4th ventricle is midline. The cerebellopontine angle i s unremarkable. EXTRACRANIAL: The visualized portion of the orbits is intact. SKULL: The calvaria is intact. No evidence of skull fracture. CONCLUSION: No acute intracranial findings. Evidence of old left thalamic infarct and chronic small vessel white matter ischemic change. Sam Welsh MD on February 11, 2017 at 16:36 Board Certified Radiologist. This report was verified electronically.
[2017-02-11 16:47] LABS: C-REACTIVE PROTEIN LESS THAN 0.29 MG/DL (0.00-0.30); CHOLESTEROL 213 MG/DL (120-200); TRIGLYCERIDES 364 MG/DL (42-150)
[2017-02-11] MEDS: niCARdipine INJ 25 MG in SODIUM CHLOR 0.9% 250 ML INJ 240 ML IV PRN ×2 (16:53→18:11)
[2017-02-11 16:54] LABS: BICARBONATE 24.5 MEQ/L (21.0-32.0); BLOOD UREA NITROGEN 17 MG/DL (7-18); CALCIUM 10.9 MG/DL (8.5-10.1); CHLORIDE 109 MEQ/L (98-107); CREATININE 1.09 MG/DL (0.50-1.00); GLOMERULAR FILTRATION RATE 50 ML/MIN (>89); GLUCOSE,RANDOM 156 MG/DL (74-106); SODIUM (NA) 142 MEQ/L (136-145)
[2017-02-11 17:12] LABS: CHOLESTEROL/ HDL RATIO 4.71 RATIO; HDL CHOLESTEROL 45.2 MG/DL (40.0-60.0); LDL CHOLESTEROL 95 MG/DL (0-99)
[2017-02-11 17:12] LABS: BILIRUBIN, URINE NEG (NEG); BLOOD, URINE TRACE (NEG); GLUCOSE,URINE TRACE mg/dL (NEG); HYALINE CAST, URINE 2 /lpf (RARE); KETONE, URINE NEG (NEG); NITRITE,URINE NEG (NEG); SQUAMOUS EPITHELIAL CELL URINE 43 /hpf (0-5); URINE COLOR YELLOW (YELLW/STRAW); URINE LEUKOCYTE ESTERASE NEG (NEG)
--- NOTE | 2017-02-11 17:15 | RADRPT ---
EXAM DATE/TIME: 02/11/2017 16:10 [facility] COMPARISON: CT BRAIN W/O CONTRAST, February 11, 2017, 16:04. INDICATIONS : Stroke alert; left side weakness, seizure-like activity. IV CONTRAST: 80 cc Omnipaque 350 (iohexol) IV ; Cumulative dose for multiple exams. RADIATION DOSE: 14.65 CTDIvol (mGy) ; Combined studies MEDICAL HISTORY : Aneurysm, intracranial. Stroke Hypertension. SURGICAL HISTORY : Intracranial aneurysm repair. Intracranial stent. ENCOUNTER: Initial ACUITY: 1 day PAIN SCALE: Non-responsive LOCATION: cranial TECHNIQUE: Volumetric scanning was performed using a multi-row detector CT scanner. The data was post processed with a variety of visualization algorithms including full volume maximum intensity projection, multi -planar sliding thin slab reformation, curved planar reformation, and surface rendering techniques. Using automated exposure control and adjustment of the mA and/or kV according to patient size, radiat ion dose was kept as low as reasonably achievable to obtain optimal diagnostic quality images. DICO M format image data is available electronically for review and comparison. FINDINGS: There is evidence of an approximately 5 cm long flow diverting stent in the left posterior cerebral a rtery extending from its origin. Stent is grossly patent. The anterior cerebral arteries, middle cere bral arteries, and right posterior cerebral artery are also patent. No central high-grade stenosis or aneurysm is seen. The right vertebral artery is markedly attenuated diffusely. There is a diffusely beaded appearance o f the basilar artery and right posterior cerebral artery likely are present atherosclerotic disease. CONCLUSION: Flow diverting stent of the left GRAIN GRADER in place. No aneurysm identified. Stent appears patent. Somewhat beaded appearance of the basilar artery likely representing atherosclerotic disease. Sam Welsh MD on February 11, 2017 at 17:04 Board Certified Radiologist. This report was verified electronically.
[2017-02-11 17:19] LABS: TROPONIN I LESS THAN 0.02 NG/ML (0.02-0.05)
--- NOTE | 2017-02-11 17:26 | PD ---
HPI Chief Complaint: Stroke Alert Time Seen by Provider: 16:02 Travel History International Travel<30 days: No Contact w/Intl Traveler<30days: No Traveled to known affect area: No History of Present Illness HPI patient 71-year-old female presents emergency Department as a stroke alert, accompanied by her son and she was last seen normal approximately 1:00 this afternoon, sometime after this the patient began having left-sided deficits, EMS states that when they arrived on scene the patient had a generalized tonic- clonic seizure, activated a stroke alert is initially they had left-sided deficits coupled with the ultimate status and seizure, seizure activity lasted for a few moments and then she was postictal afterwards, received 2 mg of Ativan prior to arrival. Patient apparently has a history of stroke in the past and according to her son she has stents in her neck as well as her brain. She is not on anticoagulants. Her history is otherwise limited as the fact that she is altered possibly postictal from a seizure possibly still seizing. PFSH Past Medical History Hx Anticoagulant Therapy: Yes Arthritis: Yes Asthma: No Blood Disorders: No Anxiety: Yes Depression: No Heart Rhythm Problems: No Cancer: No Cardiovascular Problems: Yes High Cholesterol: No Chemotherapy: No Chest Pain: No Congestive Heart Failure: No COPD: No Cerebrovascular Accident: Yes Diabetes: Yes Patient Takes Glucophage: No Diminished Hearing: No Endocrine: Yes Gastrointestinal Disorders: Yes (DIVERTICULOSIS) GERD: No Genitourinary: No Headaches: Yes Hepatitis: No Hiatal Hernia: No Hypertension: Yes Immune Disorder: No Implanted Vascular Access Dvce: No Musculoskeletal: Yes Neurologic: No Psychiatric: No Reproductive: No Respiratory: Yes Integumentary: Yes (L breast incision - healed with some scab) Immunizations Current: Yes Migraines: No Myocardial Infarction: Yes Radiation Therapy: No Seizures: No Sleep Apnea: No Thyroid Disease: Yes Ulcer: No Tetanus Vaccination: Unknown ?: Not Menopausal: Yes : 2 Para: 2 Past Surgical History AICD: No Appendectomy: No Arteriovenous Shunt: No Cholecystectomy: No Endocrine Surgery: Yes (THYROID SX) Gynecologic Surgery: Yes (hysterectomy) Hysterectomy: Yes Insulin Pump: No Joint Replacement: No Neurologic Surgery: Yes (repair of brain aneurysm. stent placed) Pacemaker: No Thoracic Surgery: Yes (back surgery) Tonsillectomy: Yes Other Surgery: Yes Social History Alcohol Use: No Tobacco Use: Yes Substance Use: No Allergies-Medications (Allergen,Severity, Reaction): Coded Allergies: grass pollen (Unverified Allergy, Severe, 10/04/16) house dust (Unverified Allergy, Severe, 10/04/16) ipratropium (Unverified Allergy, Severe, 10/04/16) aspirin (Unverified Allergy, Mild, 10/04/16) states it makes her stomach upset, but she can take it egg (Unverified Allergy, Mild, 10/04/16) codeine (Unverified Adverse Reaction, Intermediate, NAUSEA, 10/04/16) Reported Meds & Prescriptions Reported Meds & Active Scripts Active Potassium Chloride ER (Potassium Chloride) 10 Meq Tab 10 Meq PO DAILY Reported Toprol XL (Metoprolol Succinate) 100 Mg Tab 100 Mg PO HS Clonidine (Clonidine HCl) 0.2 Mg Tab 0.2 Mg PO Q12HR Omeprazole 20 Mg Tab 20 Mg PO DAILY Aspirin Adult Low Strength (Aspirin) 81 Mg Tabdr 81 Mg PO DAILY Hydroxyzine Pamoate 25 Mg Cap 25-50 Mg PO HS PRN Lisinopril 40 Mg Tab 40 Mg PO HS Sertraline (Sertraline HCl) 25 Mg Tab 25 Mg PO DAILY Januvia (Sitagliptin Phosphate) 100 Mg Tab 100 Mg PO DAILY Lasix (Furosemide) 20 Mg Tab 20 Mg PO HS Plavix (Clopidogrel Bisulfate) 75 Mg Tab 75 Mg PO DAILY Coreg (Carvedilol) 6.25 Mg Tab 6.25 Mg PO BID Review of Systems Except as stated in HPI: all other systems reviewed are Neg Physical Exam Narrative GENERAL: Well-developed, well-nourished, her, spasmodic episodes of left upper extremity. SKIN: Focused skin assessment warm/dry. HEAD: Atraumatic. Normocephalic. EYES: Pupils equal and round. No scleral icterus. No injection or drainage. ENT: No nasal bleeding or discharge. Mucous membranes pink and moist. NECK: Trachea midline. No JVD. CARDIOVASCULAR: Regular rate and rhythm. No murmur appreciated. RESPIRATORY: No accessory muscle use. Clear to auscultation. Breath sounds equal bilaterally. GASTROINTESTINAL: Abdomen soft, non-tender, nondistended. Hepatic and splenic margins not palpable. MUSCULOSKELETAL: No obvious deformities. No clubbing. No cyanosis. No edema. NEUROLOGICAL: Awake and alert oriented to self only. A GCS of 14 and she is able to speak to me although she is confused and disoriented. Cranial nerve exam shows cranial nerves II through XII are grossly intact and nonfocal, extremity exam shows slow twitching of the left upper extremity with tonic contractures of the left lower extremity. She follows commands in the right upper extremity. She has completed neglect of the left side of her body. Babinski sign is upgoing bilaterally. Her total NIH stroke scale on arrival was 24. PSYCHIATRIC: Appropriate mood and affect; insight and judgment normal. Data Data Last Documented VS Vital Signs Date Time Temp Pulse Resp B/P (MAP) Pulse Ox O2 Delivery O2 Flow Rate FiO2 02/11/17 18:09 61 16 198/101 (133) 97 Partial Rebreather 8.00 Orders Orders Diet Npo (02/11/17 Dinner) Activity Bed Rest (02/11/17 ) Electrocardiogram (02/11/17 ) I-Stat Creatinine (02/11/17 16:02) I-Stat Profile (02/11/17 16:02) Prothrombin Time / Inr (Pt) (02/11/17 16:02) Act Partial Throm Time (Ptt) (02/11/17 16:02) Complete Blood Count With Diff (02/11/17 16:02) Fibrinogen (02/11/17 16:02) Creatine Kinase (Cpk) (02/11/17 16:02) Troponin I (02/11/17 16:02) Ua Includes Microscopic (02/11/17 16:02) Drug Screen, Random Urine (02/11/17 16:02) Type And Screen (02/11/17 16:02) Ct Brain W/O Iv Contrast(Rout) (02/11/17 ) Chest, Single Ap (02/11/17 ) Cta Brain W Iv Contrast W 3d (02/11/17 16:02) Cta Neck W Iv Contrast W 3d (02/11/17 16:02) Beta Hcg (Quant/Titer) (02/11/17 16:02) Consult Neurology (02/11/17 ) Ecg Monitoring (02/11/17 16:02) Neuro Checks Q2HX12,Q4H (02/11/17 16:02) Nursing Bedside Swallow Assess .ONCE (02/11/17 16:02) Iv Access Insert/Monitor (02/11/17 16:02) NPO (02/11/17 16:02) Oximetry (02/11/17 16:02) Oxygen Administration (02/11/17 16:02) Sodium Chlor 0.9% 1000 Ml Inj (Ns 1000 M (02/11/17 16:02) Resp Oxygen Naman C Titrat 1-4 L (02/11/17 16:02) Cath For Specimen (02/11/17 16:02) Lorazepam Inj (Ativan Inj) (02/11/17 16:15) Ondansetron Inj (Zofran Inj) (02/11/17 16:15) Fosphenytoin Inj (Cerebyx Inj) (02/11/17 16:15) Eeg Study (02/11/17 ) Westergren Sedimentation Rate (02/11/17 16:09) Phenytoin (Dilantin) (02/12/17 06:00) Phenytoin (Dilantin) (02/13/17 06:00) Phenytoin (Dilantin) (02/14/17 06:00) Phenytoin (Dilantin) (02/15/17 06:00) Phenytoin (Dilantin) (02/16/17 06:00) Phenytoin (Dilantin) (02/17/17 06:00) Ammonia (02/11/17 16:09) C-Reactive Protein (Crp) (02/11/17 16:09) Hemoglobin (Hgb) A1c (02/11/17 16:09) Lipid Profile (02/11/17 16:09) Mri Brain W/O Contrast (02/11/17 ) Consult Pt Eval & Tx Oob (02/11/17 16:11) Speech Therapy Consult-Eval/Tx (02/11/17 16:11) Scd Bilateral/Knee High [email or web address] (02/11/17 16:11) ^ Fall Precautions (02/11/17 16:11) Software Sales Manager / Telemetry [email or web address] (02/11/17 16:11) Echo 2d Comp With Doppler (02/11/17 ) Nicardipine Inj (Cardene Inj) (02/11/17 16:15) Vitamin B12 (02/11/17 16:07) Basic Metabolic Panel (Bmp) (02/11/17 16:07) Thyroid Stimulating Hormone (02/11/17 16:07) Iohexol 350 Inj (Omnipaque 350 Inj) (02/11/17 16:00) (Hub Use Only)Inp Phy Cons/Ref (02/11/17 ) Aspirin Supp (Aspirin Supp) (02/11/17 17:30) Basic Metabolic Panel (Bmp) (02/11/17 17:26) Admit Order (Ed Use Only) (02/11/17 ) Labs Laboratory Tests Test 02/11/17 16:07 02/11/17 16:45 White Blood Count 10.2 TH/MM3 Red Blood Count 5.63 MIL/MM3 Hemoglobin 16.7 GM/DL Bedside Hemoglobin 17.0 G/DL Hematocrit 51.0 % Bedside Hematocrit 50.0 % Mean Corpuscular Volume 90.6 FL Mean Corpuscular Hemoglobin 29.7 PG Mean Corpuscular Hemoglobin Concent 32.7 % Red Cell Distribution Width 12.8 % Platelet Count 165 TH/MM3 Mean Platelet Volume 11.0 FL Neutrophils (%) (Auto) 48.8 % Lymphocytes (%) (Auto) 43.8 % Monocytes (%) (Auto) 5.7 % Eosinophils (%) (Auto) 1.2 % Basophils (%) (Auto) 0.5 % Neutrophils # (Auto) 5.0 TH/MM3 Lymphocytes # (Auto) 4.5 TH/MM3 Monocytes # (Auto) 0.6 TH/MM3 Eosinophils # (Auto) 0.1 TH/MM3 Basophils # (Auto) 0.0 TH/MM3 CBC Comment DIFF FINAL Differential Comment Erythrocyte Sedimentation Rate 1 mm/hr Prothrombin Time 10.2 SEC Prothromb Time International Ratio 1.0 RATIO Activated Partial Thromboplast Time 25.4 SEC Fibrinogen 353 mg/dL Bedside Sodium 143 MMOL/L Blood Urea Nitrogen 17 MG/DL 16 MG/DL Creatinine 1.09 MG/DL 0.88 MG/DL Random Glucose 156 MG/DL 137 MG/DL Calcium Level 10.9 MG/DL 9.9 MG/DL Sodium Level 142 MEQ/L 140 MEQ/L Potassium Level 6.2 MEQ/L 3.9 MEQ/L Chloride Level 109 MEQ/L 106 MEQ/L Carbon Dioxide Level 24.5 MEQ/L 26.1 MEQ/L Bedside Potassium 6.4 MMOL/L Bedside Chloride 109 MMOL/L Anion Gap 9 MEQ/L 8 MEQ/L Bedside Blood Urea Nitrogen 21 MG/DL Bedside Creatinine 0.8 MG/DL Estimat Glomerular Filtration Rate 50 ML/MIN 64 ML/MIN Bedside Glucose 155 MG/DL Total Creatine Kinase 108 U/L Troponin I LESS THAN 0.02 NG/ML C-Reactive Protein LESS THAN 0.29 MG/DL Triglycerides Level 364 MG/DL Cholesterol Level 213 MG/DL LDL Cholesterol 95 MG/DL HDL Cholesterol 45.2 MG/DL Cholesterol/HDL Ratio 4.71 RATIO Vitamin B12 Level 456 PG/ML Thyroid Stimulating Hormone 3rd Gen 0.668 uIU/ML Human Chorionic Gonadotropin, Quant 5 MIU/ML Urine Color YELLOW Urine Turbidity HAZY Urine pH 7.0 Urine Specific [place] 1.038 Urine Protein 300 mg/dL Urine Glucose (UA) TRACE mg/dL Urine Ketones NEG mg/dL Urine Occult Blood TRACE Urine Nitrite NEG Urine Bilirubin NEG Urine Urobilinogen LESS THAN 2.0 MG/DL Urine Leukocyte Esterase NEG Urine RBC 2 /hpf Urine WBC 2 /hpf Urine Squamous Epithelial Cells 43 /hpf Urine Hyaline Casts 2 /lpf Ammonia 24 MCMOL/L Urine Opiates Screen NEG Urine Barbiturates Screen NEG Urine Amphetamines Screen NEG Urine Benzodiazepines Screen NEG Urine Cocaine Screen NEG Urine Cannabinoids Screen NEG MDM Medical Decision Making Medical Screen Exam Complete: Yes Emergency Medical Condition: Yes Differential Diagnosis Acute stroke, focal seizure, intracranial hemorrhage, electro-light abnormality. Narrative Course Patient roomed in emergency Department as a stroke alert, she's taken his CAT scan where a noncontrast CT of her head showed old infarct of the left thalamus but nothing acute. CT angio does reveal a patent stent in the left [place], nothing acute. CT scans were discussed with radiologist several times. The patient initially had hyperkalemia with a potassium 6.3, anticipating a spurious result this was repeated and now 3.9, patient has no EKG findings to suggest hyperkalemia. Hemodynamically the patient is notably hypertensive in the 240 systolic range regarding the Cardene drip. She also is displaying focalized seizure activity and was given an additional 2 mg of Ativan plus Cerebyx 1 g IV. Patient was discussed with Dr. Martinez on arrival, the patient has several contraindications to tPA including that she is out of the three-hour window and Dr. Martinez does not think that she is a patient amenable to an extended tPA window. Further her blood pressures requiring significant intervention to control to parameters and the patient his had to be epileptiform events one while in the emergency department and one for EMS. Patient continues to have flaccid left-sided paralysis while in the emergency department. Continue to treat her blood pressure, nothing by mouth, aspirin given per rectum. Will be admitted to the ICU and discussed with Dr. Reza. Leading differential diagnosis at this time focalized seizure, Deonte's paralysis , acute stroke non a canidate to global TPA nor interventional radiology procedure. Critical Care Narrative Aggregate critical care time was 61 minutes. Time to perform other separately billable procedures was not included in the critical care time. My time did not include minutes spent treating any other patients simultaneously or on activities that did not directly contribute to the patient's treatment. The services I provided to this patient were to treat and/or prevent clinically significant deterioration that could result in: , disability, organ failure. I provided critical care services requiring my management, as noted below: Chart data review, documentation time, medication orders and management, vital sign assessments/reviewing monitor data, ordering and reviewing lab tests, ordering and interpreting/reviewing x-rays and diagnostic studies, care of the patient and discussion of the patient with the admitting physicians. Diagnosis Primary Impression: Focal seizure Additional Impression: Left-sided weakness Admitting Information Admitting Physician Requests: Admit Condition: Serious Brandan Dietrich MD Feb 11, 2017 17:26
[2017-02-11] MEDS ORDERED: ASPIRIN 600 MG SUPP RECTAL ONE (17:30)
[2017-02-11 17:33] LABS: PROTHROMBIN TIME - PATIENT 10.2 SEC (9.8-11.6)
[2017-02-11] MEDS ORDERED: LISI40TA PO (17:37)
[2017-02-11] MEDS ORDERED: TOPR100T PO (17:37)
[2017-02-11] MEDS ORDERED: ASPI81TA16 PO (17:37)
[2017-02-11] MEDS ORDERED: CLON0.2T PO (17:37)
[2017-02-11] MEDS ORDERED: HYDR1CAP30 PO (17:37)
[2017-02-11] MEDS ORDERED: OMEP20TA93 PO (17:37)
--- NOTE | 2017-02-11 17:54 | RADRPT ---
EXAM DATE/TIME: 02/11/2017 16:58 [facility] COMPARISON: CHEST SINGLE AP, May 05, 2016, 11:13. INDICATIONS : Stroke alert. MEDICAL HISTORY : Unknown. SURGICAL HISTORY : Unknown. ENCOUNTER: Initial ACUITY: 1 day PAIN SCORE: Non-responsive. LOCATION: Bilateral chest FINDINGS: Single AP view of the chest. Mild left lung base atelectasis. The lungs are otherwise clear. Cardiome diastinal silhouette within normal limits. No evidence of pleural effusion or pneumothorax. CONCLUSION: No acute cardiopulmonary disease identified. Sam Welsh MD on February 11, 2017 at 17:52 Board Certified Radiologist. This report was verified electronically.
--- NOTE | 2017-02-11 18:02 | RADRPT ---
EXAM DATE/TIME: 02/11/2017 16:10 [facility] COMPARISON: CTA BRAIN W 3D RECON, February 11, 2017, 16:10. INDICATIONS : Stroke alert; left side weakness, seizure-like activity. IV CONTRAST: 80 cc Omnipaque 350 (iohexol) IV ; Cumulative dose for multiple exams. RADIATION DOSE: 14.65 CTDIvol (mGy) ; Combined studies MEDICAL HISTORY : Aneurysm, intracranial. Stroke Hyperthyroidism. SURGICAL HISTORY : Intracranial aneurysm repair. Intracranial stent. ENCOUNTER: Initial ACUITY: 1 day PAIN SCALE: Non-responsive LOCATION: neck Elevated flow velocities and ICA/CCA ratios have been found to correlate with increased degrees of vessel stenosis, calculated as percentage of diameter relative to a normal segment of distal ICA/CCA. TECHNIQUE: Volumetric scanning was performed using a multirow detector CT scanner. The data was post processed with a variety of visualization algorithms including full-volume maximum intensity projection, multip lanar sliding thin-slab reformation, curved-planar reformation, and surface-rendering techniques. Us ing automated exposure control and adjustment of the mA and/or kV according to patient size, radiatio n dose was kept as low as reasonably achievable to obtain optimal diagnostic quality images. DICOM f ormat image data is available electronically for review and comparison. FINDINGS: AORTIC ARCH: There is a three-vessel origin of the great vessels from the aorta. No evidence of ostial narrowing. RIGHT CAROTID: Calcified plaque is seen at the carotid bulb. No evidence of significant carotid stenosis. LEFT CAROTID: Calcified plaque is seen at the carotid bulb. No evidence of significant carotid stenosis. VERTEBRALS: There is marked asymmetry of the vertebral arteries with the left being much larger than the right di ffusely. No evidence of occlusion or high-grade stenosis. Diffusely enlarged heterogeneous thyroid. CONCLUSION: Atherosclerotic disease but no evidence of significant carotid stenosis. Sam Welsh MD on February 11, 2017 at 17:54 Board Certified Radiologist. This report was verified electronically.
[2017-02-11 18:13] LABS: BICARBONATE 26.1 MEQ/L (21.0-32.0); CALCIUM 9.9 MG/DL (8.5-10.1); CREATININE 0.88 MG/DL (0.50-1.00)
--- NOTE | 2017-02-11 18:29 | RADRPT ---
EXAM DATE/TIME: 02/11/2017 17:34 [facility] COMPARISON: No previous studies available for comparison. INDICATIONS : Seizures. Left side weakness. MEDICAL HISTORY : Diabetes mellitus type 2. SURGICAL HISTORY : Carotid endarterectomy. Discectomy, thoracic. Brain stent. ENCOUNTER: Initial ACUITY: 1 day PAIN SCORE: 0/10 LOCATION: cranial TECHNIQUE: Multiplanar, multisequence MRI of the brain was performed without contrast. FINDINGS: CEREBRUM: There is evidence of an old infarct in the left thalamus measuring 3 cm in diameter. The ventricles a re normal for age. No evidence of midline shift, mass lesion, or hemorrhage. No extraaxial fluid col lections are seen. The pituitary gland and suprasellar cistern are normal in configuration. Artifact s from flow diverting stent is seen just anterior and lateral to the midbrain on the left. WHITE MATTER: Extensive periventricular and subcortical white matter hyperintensity indicating chronic small vessel ischemic change. Particularly prominent cortical and subcortical hyperintensity is seen in the poste rior parietal lobe on the right. This is larger than the adjacent area of restricted diffusion. POSTERIOR FOSSA: The cerebellum and brainstem are intact. The 4th ventricle is midline. The cerebellopontine angle is unremarkable. The cerebellar tonsils are normal in position. DIFFUSION IMAGING: There is an 8mm focus of restricted diffusion in the posterior parietal cortex on the right. No other areas of restricted diffusion are identified. EXTRACRANIAL: The visualized portions of the orbits and paranasal sinuses are unremarkable. CONCLUSION: 1. Small acute infarct in the right posterior parietal cortex/white matter. Adjacent more prominent a noemy of white matter hyperintensity on the T2-weighted images likely are presenting chronic ischemic c hange. 2. Old left thalamic infarct. 3. 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 Sam Welsh MD on February 11, 2017 at 18:22 Board Certified Radiologist. This report was verified electronically.
--- NOTE | 2017-02-11 19:25 | HHI.HP ---
HPI Service Critical Care Medicine Primary Care Physician Unknown Admission Diagnosis Stroke vs Focal Seizure. 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 Her last seen normal time was approximately 1300 this afternoon. The patient was noted to have left-sided weakness. EMS was called. Patient had a witnessed generalized tonic clonic seizure by EMS which lasted a few minutes per report. Prior to arrival in the emergency apart and she received 2 mg of Ativan IV. In the emergency department she received 2 more milligrams of Ativan IV. Per the ER physician, she appeared to be postictal. She was out of the window for TPA. Dr. Milligan, neurology, was consulted and ordered MRI, CTA head/neck. CTA was negative for large vessel occlusion and demonstrated patent AUTOMATIC BUFFING WHEEL FORMER stent. MRI demonstrated small area of infarction in the right parietal cortex. On my evaluation, her left sided weakness has started to improve compared to prior exams. her speech is slightly slurred, and difficult to tell if this is due to her somnolence or true dysarthria. she endorses left-sided weakness. denies numbness. denies shortness of breath, chest pain, headache, blurry vision, vision changes, or any other symptoms. She was initially on a non -rebreather mask, but this is being weaned down on my evaluation. Review of Systems ROS Limitations: Altered Mental Status, Speech Impaired Constitutional: DENIES: Diaphoretic episodes, Fatigue, Fever, Chills Eyes: DENIES: Blurred vision, Diplopia, Vision loss, Photosensitivity, Double Vision Ears, nose, mouth, throat: DENIES: Hearing loss, Running Nose, Epistaxis Respiratory: DENIES: Apneas, Cough, Snoring, Hemoptysis, Sputum production, Shortness of breath Cardiovascular: DENIES: Chest pain, Palpitations, Syncope, Dyspnea on Exertion , PND, Lower Extremity Edema, Orthopnea, Claudication Gastrointestinal: DENIES: Abdominal pain, Black stools, Bloody stools, Constipation, Diarrhea, Nausea, Vomiting Musculoskeletal: DENIES: Back pain, Neck pain Neurologic: COMPLAINS OF: Abnormal gait, Localized weakness, DENIES: Headache, Paresthesias, Seizures, Speech Problems, Tremor, Poor Balance Psychiatric: DENIES: Anxiety, Confusion Past Family Social History Allergies: Coded Allergies: grass pollen (Unverified Allergy, Severe, 10/04/16) house dust (Unverified Allergy, Severe, 10/04/16) ipratropium (Unverified Allergy, Severe, 10/04/16) aspirin (Unverified Allergy, Mild, 10/04/16) states it makes her stomach upset, but she can take it egg (Unverified Allergy, Mild, 10/04/16) codeine (Unverified Adverse Reaction, Intermediate, NAUSEA, 10/04/16) Past Medical History Arthritis Anxiety Prior stroke, no residual deficits per the patient Diabetes Diverticulosis Headaches Hypertension Prior myocardial infarction Past Surgical History Thyroid surgery Hysterectomy Left breast incision Left AUTOMATIC BUFFING WHEEL FORMER aneurysm repaired with stent placement Back surgery Tonsillectomy Reported Medications Toprol XL (Metoprolol Succinate) 100 Mg Tab 100 Mg PO HS Clonidine (Clonidine HCl) 0.2 Mg Tab 0.2 Mg PO Q12HR Omeprazole 20 Mg Tab 20 Mg PO DAILY Aspirin Adult Low Strength (Aspirin) 81 Mg Tabdr 81 Mg PO DAILY Hydroxyzine Pamoate 25 Mg Cap 25-50 Mg PO HS PRN Lisinopril 40 Mg Tab 40 Mg PO HS Sertraline (Sertraline HCl) 25 Mg Tab 25 Mg PO DAILY Januvia (Sitagliptin Phosphate) 100 Mg Tab 100 Mg PO DAILY Lasix (Furosemide) 20 Mg Tab 20 Mg PO HS Plavix (Clopidogrel Bisulfate) 75 Mg Tab 75 Mg PO DAILY Coreg (Carvedilol) 6.25 Mg Tab 6.25 Mg PO BID Active Ordered Medications See MAR Family History Reviewed and found to be noncontributory to her acute illness Social History Positive for smoking, negative for EtOH or drugs of abuse Physical Exam Vital Signs Vital Signs Date Time Temp Pulse Resp B/P (MAP) Pulse Ox O2 Delivery O2 Flow Rate FiO2 02/11/17 19:02 62 18 176/81 (112) 93 Partial Rebreather 10.00 02/11/17 18:11 62 198/101 02/11/17 18:09 61 16 198/101 (133) 97 Partial Rebreather 8.00 02/11/17 17:24 59 16 145/71 (95) 97 Partial Rebreather 8.00 02/11/17 17:10 62 14 187/85 (119) 98 Partial Rebreather 8.00 02/11/17 16:53 68 230/108 02/11/17 16:50 68 14 199/92 (127) 93 Nasal Cannula 2.00 02/11/17 16:21 72 16 216/100 (138) 93 Nasal Cannula 2.00 02/11/17 16:01 85 18 236/132 (166) 98 02/11/17 16:00 22 93 Nasal Cannula 4.00 02/11/17 16:00 93 Nasal Cannula 4.00 Physical Exam GENERAL: Middle-aged female, lying in bed, in distress due to her weakness HEENT: Normocephalic. Atraumatic. Pupils equal, round, reactive, conjugate. Mucous membranes are moist NECK: Trachea is midline. There is no JVD. CHEST: Equal chest rise. Being weaned to a 50% Ventimask, SPO2 98% CARDIOVASCULAR: Normal rate, regular rhythm. Hypertensive with systolic blood pressure in the 190s on my evaluation. On nicardipine drip at 2.5 mg/h ABDOMEN: Soft, nontender, nondistended. No guarding. MUSCULOSKELETAL: Pulses 2+. No peripheral edema. NEUROLOGICAL: GCS of 14. Slightly somnolent but awake and following commands weakly. JESUS MANUEL 5/5 on right upper and lower extremities. JESUS MANUEL 1/5 left upper extremity, 2/5 left lower extremity. sensation grossly intact. CN 2-12 grossly intact. pupils 3mm, equal, reactive, conjugate. speech slightly slurred, no noted facial droop. Laboratory Laboratory Tests Test 02/11/17 16:07 02/11/17 16:45 White Blood Count 10.2 Red Blood Count 5.63 Hemoglobin 16.7 Bedside Hemoglobin 17.0 Hematocrit 51.0 Bedside Hematocrit 50.0 Mean Corpuscular Volume 90.6 Mean Corpuscular Hemoglobin 29.7 Mean Corpuscular Hemoglobin Concent 32.7 Red Cell Distribution Width 12.8 Platelet Count 165 Mean Platelet Volume 11.0 Neutrophils (%) (Auto) 48.8 Lymphocytes (%) (Auto) 43.8 Monocytes (%) (Auto) 5.7 Eosinophils (%) (Auto) 1.2 Basophils (%) (Auto) 0.5 Neutrophils # (Auto) 5.0 Lymphocytes # (Auto) 4.5 Monocytes # (Auto) 0.6 Eosinophils # (Auto) 0.1 Basophils # (Auto) 0.0 CBC Comment DIFF FINAL Differential Comment Erythrocyte Sedimentation Rate 1 Prothrombin Time 10.2 Prothromb Time International Ratio 1.0 Activated Partial Thromboplast Time 25.4 Fibrinogen 353 Bedside Sodium 143 Blood Urea Nitrogen 17 16 Creatinine 1.09 0.88 Random Glucose 156 137 Calcium Level 10.9 9.9 Sodium Level 142 140 Potassium Level 6.2 3.9 Chloride Level 109 106 Carbon Dioxide Level 24.5 26.1 Bedside Potassium 6.4 Bedside Chloride 109 Anion Gap 9 8 Bedside Blood Urea Nitrogen 21 Bedside Creatinine 0.8 Estimat Glomerular Filtration Rate 50 64 Bedside Glucose 155 Total Creatine Kinase 108 Troponin I LESS THAN 0.02 C-Reactive Protein LESS THAN 0.29 Triglycerides Level 364 Cholesterol Level 213 LDL Cholesterol 95 HDL Cholesterol 45.2 Cholesterol/HDL Ratio 4.71 Vitamin B12 Level 456 Thyroid Stimulating Hormone 3rd Gen 0.668 Human Chorionic Gonadotropin, Quant 5 Urine Color YELLOW Urine Turbidity HAZY Urine pH 7.0 Urine Specific [place] 1.038 Urine Protein 300 Urine Glucose (UA) TRACE Urine Ketones NEG Urine Occult Blood TRACE Urine Nitrite NEG Urine Bilirubin NEG Urine Urobilinogen LESS THAN 2.0 Urine Leukocyte Esterase NEG Urine RBC 2 Urine WBC 2 Urine Squamous Epithelial Cells 43 Urine Hyaline Casts 2 Ammonia 24 Urine Opiates Screen NEG Urine Barbiturates Screen NEG Urine Amphetamines Screen NEG Urine Benzodiazepines Screen NEG Urine Cocaine Screen NEG Urine Cannabinoids Screen NEG Result Diagram: 02/11/17 1607 02/11/17 1645 Imaging Last Impressions Neck CTA 02/11/17 1602 Signed Impressions: Service Date/Time: Saturday, February 11, 2017 16:10 - CONCLUSION: Atherosclerotic disease but no evidence of significant carotid stenosis. Sam Welsh MD Head CTA 02/11/17 1602 Signed Impressions: Service Date/Time: Saturday, February 11, 2017 16:10 - CONCLUSION: Flow diverting stent of the left AUTOMATIC BUFFING WHEEL FORMER in place. No aneurysm identified. Stent appears patent. Somewhat beaded appearance of the basilar artery likely representing atherosclerotic disease. Sam Welsh MD Head CT 02/11/17 0000 Signed Impressions: Service Date/Time: Saturday, February 11, 2017 16:04 - CONCLUSION: No acute intracranial findings. Evidence of old left thalamic infarct and chronic small vessel white matter ischemic change. Sam Welsh MD Chest X-Ray 02/11/17 0000 Signed Impressions: Service Date/Time: Saturday, February 11, 2017 16:58 - CONCLUSION: No acute cardiopulmonary disease identified. Sam Welsh MD Brain MRI 02/11/17 0000 Signed Impressions: Service Date/Time: Saturday, February 11, 2017 17:34 - CONCLUSION: 1. Small acute infarct in the right posterior parietal cortex/white matter. Adjacent more prominent area of white matter hyperintensity on the T2-weighted images likely are presenting chronic ischemic change. 2. Old left thalamic infarct. 3. Left-sided AUTOMATIC BUFFING WHEEL FORMER flow diverting stent resulting in artifact. Sam Welsh MD Septic Shock Reassessment Septic shock perfusion: reassessment completed Caprini VTE Risk Assessment Caprini VTE Risk Assessment: Mod/High Risk (score >= 2) Caprini Risk Assessment Model Point Value = 1 Point Value = 2 Point Value = 3 Point Value = 5 Age 41-60 Minor surgery BMI > 25 kg/m2 Swollen legs Varicose veins or History of unexplained or recurrent spontaneous Oral contraceptives or hormone replacement Sepsis (< 1 month) Serious lung disease, including pneumonia (< 1 month) Abnormal pulmonary function Acute myocardial infarction Congestive heart failure (< 1 month) History of inflammatory bowel disease Medical patient at bed rest Age 61-74 Arthroscopic surgery Major open surgery (> 45 min) Laparoscopic surgery (> 45 min) Malignancy Confined to bed (> 72 hours) Immobilizing plaster cast Central venous access Age >= 75 History of VTE Family history of VTE Factor V Leiden Prothrombin [id number] Lupus anticoagulant Anticardiolipin antibodies Elevated serum homocysteine Heparin-induced thrombocytopenia Other congenital or acquired thrombophilia Stroke (< 1 month) Elective arthroplasty Hip, pelvis, or leg fracture Acute spinal cord injury (< 1 month) Prophylaxis Regimen Total Risk Factor Score Risk Level Prophylaxis Regimen 0-1 Low Early ambulation 2 Moderate Order ONE of the following: *Sequential Compression Device (SCD) *Heparin 5000 units SQ BID 3-4 Higher Order ONE of the following medications: *Heparin 5000 units SQ TID *Enoxaparin/Lovenox 40 mg SQ daily (WT < 150 kg, CrCl > 30 mL/min) *Enoxaparin/Lovenox 30 mg SQ daily (WT < 150 kg, CrCl > 10-29 mL/min) *Enoxaparin/Lovenox 30 mg SQ BID (WT < 150 kg, CrCl > 30 mL/min) AND/OR *Sequential Compression Device (SCD) 5 or more Highest Order ONE of the following medications: *Heparin 5000 units SQ TID (Preferred with Epidurals) *Enoxaparin/Lovenox 40 mg SQ daily (WT < 150 kg, CrCl > 30 mL/min) *Enoxaparin/Lovenox 30 mg SQ daily (WT < 150 kg, CrCl > 10-29 mL/min) *Enoxaparin/Lovenox 30 mg SQ BID (WT < 150 kg, CrCl > 30 mL/min) AND *Sequential Compression Device (SCD) Assessment and Plan Assessment and Plan Assessment: 71yF with history of prior CVA and aneurysm s/p left AUTOMATIC BUFFING WHEEL FORMER stent placement presents with new-onset left-sided weakness and found to have new acute right parietal CVA. Will wean nicardipine as tolerated. permissive hypertension. complete work-up for stroke. frequent neuro checks. likely can be downgraded to floor status tomorrow if she remains stable. New acute CVA Hypertensive Emergency Seizures - cardene for goal sbp < 220 - permissive hypertension - EEG - keppra 1gm iv x 1 - keppra 500mg iv q12h - neurology consult - lipids - ASA daily - statin - 2d echo - frequent neuro checks - bedside swallow eval prior to any PO. if passes, advance diet. if fails, make NPO and order formal swallow eval. SCDs, SQH Admit to ICU. Luis Alberto Guillen MD Feb 11, 2017 19:25
[2017-02-11] MEDS ORDERED: MAGNESIUM SULFATE INJ 2 GM in SODIUM CHLORIDE 0.9% INJ 96 ML IV PRN (19:30)
[2017-02-11] MEDS ORDERED: RESP: ALBUTEROL 2.5 MG/IPRATROPIUM 0.5 MG NEB (PRN) INH (19:30)
[2017-02-11] MEDS ORDERED: levETIRAcetam INJ 100 ML IV ONE (19:30)
[2017-02-11] MEDS ORDERED: MISCELLANEOUS NURSING INFORMATION XX SCH (19:30)
[2017-02-11] MEDS ORDERED: POTASSIUM CHLOR 20 MEQ PREMIX 100 ML IV PRN ×2 (19:30)
[2017-02-11] MEDS ORDERED: POTASSIUM CHLORIDE 25 MEQ EFFERVESCENT TAB PO PRN (19:30)
[2017-02-11] MEDS ORDERED: MAGNESIUM HYDROXIDE SUSP 30 ML CUP PO PRN (19:30)
[2017-02-11] MEDS ORDERED: MAGNESIUM SULFATE INJ 4 GM in SODIUM CHLORIDE 0.9% INJ 92 ML IV PRN (19:30)
[2017-02-11] MEDS ORDERED: niCARdipine INJ 25 MG in SODIUM CHLOR 0.9% 250 ML INJ 240 ML IV PRN (19:30)
[2017-02-11] MEDS ORDERED: POTASSIUM PHOSPHATE MONOBASIC 500 MG TAB PO/TUBE PRN (19:30)
[2017-02-11] MEDS ORDERED: ONDANSETRON HCL 4 MG/2 ML VIAL IV PUSH PRN (19:30)
[2017-02-11] MEDS ORDERED: SODIUM PHOSPHATE INJ 30 MMOL in SODIUM CHLOR 0.9% 250 ML INJ 240 ML IV PRN (19:30)
[2017-02-11] MEDS ORDERED: MAGNESIUM OXIDE 400 MG TAB PO PRN (19:30)
[2017-02-11] MEDS ORDERED: POTASSIUM PHOSPHATE INJ 30 MMOL in SODIUM CHLOR 0.9% 250 ML INJ 250 ML IV PRN (19:30)
[2017-02-11] MEDS ORDERED: POTASSIUM CHLOR 40 MEQ PREMIX 100 ML IV PRN ×2 (19:30)
[2017-02-11] MEDS ORDERED: DEXTROSE 50% IN WATER 50 ML VIAL(D50) IV PUSH PRN (19:30)
[2017-02-11] MEDS ORDERED: POTASSIUM PHOSPHATE MONOBASIC 500 MG TAB PO PRN (19:30)
[2017-02-11] MEDS ORDERED: CHLORHEXIDINE GLUCONATE 2 % 1 PACK (2 CLOTHS) TOP PRN (19:30)
[2017-02-11] MEDS ORDERED: ACETAMINOPHEN 325 MG TAB PO PRN (19:30)
[2017-02-11] MEDS: RESP: ALBUTEROL 2.5 MG/IPRATROPIUM 0.5 MG NEB (SCH) INH (20:56)
[2017-02-11] MEDS: DOCUSATE SODIUM 50 MG/SENNA 8.6 MG TAB PO SCH (21:00)
[2017-02-11] MEDS: HEPARIN SODIUM - SQ 10,000 UNITS/ML VIAL SQ SCH (21:08)
[2017-02-12] VITALS (11 sets, daily range): BP systolic 126–170; BP diastolic 61–101; PULSE 63–79; RESP 15–24; TEMP 97.6–98.9; O2SAT 94–96
[2017-02-12] MEDS ORDERED: diphenhydrAMINE HCL 50 MG/ML VIAL IV SCH (00:05)
[2017-02-12] MEDS: CYCLOBENZAPRINE HCL 10 MG TAB PO PRN ×2 (01:52→10:51)
[2017-02-12 02:26] LABS: HEMATOCRIT 44.1 % (35.0-46.0); HEMOGLOBIN 14.6 GM/DL (11.6-15.3); MEAN CELL VOLUME 88.8 FL (80.0-100.0); MEAN CORPUSCULAR HEMOGLOBIN 29.5 PG (27.0-34.0); MEAN CORPUSCULAR HGB CONC 33.2 % (32.0-36.0); MEAN PLATELET VOLUME 10.8 FL (7.0-11.0); PLATELET COUNT 139 TH/MM3 (150-450); RED BLOOD COUNT 4.97 MIL/MM3 (4.00-5.30); RED CELL DISTRIBUTION WIDTH 12.7 % (11.6-17.2); WHITE BLOOD COUNT 11.4 TH/MM3 (4.0-11.0)
[2017-02-12 02:49] LABS: BICARBONATE 28.1 MEQ/L (21.0-32.0); CALCIUM 9.8 MG/DL (8.5-10.1); CREATININE 0.74 MG/DL (0.50-1.00); PHENYTOIN (DILANTIN) 10.4 MCG/ML (10.0-20.0)
[2017-02-12 02:55] LABS: TROPONIN I 0.13 NG/ML (0.02-0.05)
[2017-02-12] MEDS: RESP: ALBUTEROL 2.5 MG/IPRATROPIUM 0.5 MG NEB (SCH) INH ×4 (02:57→20:17)
[2017-02-12] MEDS: CHLORHEXIDINE GLUCONATE 2 % 1 PACK (2 CLOTHS) TOP SCH (03:47)
[2017-02-12] MEDS ORDERED: NITROGLYCERIN-D5W 50 MG/250 ML 250 ML IV PRN (04:15)
[2017-02-12] MEDS ORDERED: METOPROLOL TARTRATE 5 MG/5 ML VIAL IV PUSH ONE (04:15)
[2017-02-12] MEDS: INSULIN NovoLIN REGULAR SUPPLEMENTAL SCALE SQ SCH ×6 (06:00→21:11)
--- NOTE | 2017-02-12 06:07 | RADRPT ---
EXAM DATE/TIME: 02/12/2017 04:57 [facility] COMPARISON: CT BRAIN W/O CONTRAST, February 11, 2017, 16:04. CTA BRAIN W 3D RECON, February 11, 2017, 16:10. INDICATIONS : Neuro staus change. Evaluate for hemorrhage. RADIATION DOSE: 40.79 CTDIvol (mGy) MEDICAL HISTORY : Cerebrovascular disease. Cardiovascular disease Hypertension.Diabetes COPD SURGICAL HISTORY : Hysterectomy. BOARD TURNER stent ENCOUNTER: Subsequent ACUITY: 1 day PAIN SCALE: 0/10 LOCATION: cranial TECHNIQUE: Multiple contiguous axial images were obtained of the head. Using automated exposure control and adj ustment of the mA and/or kV according to patient size, radiation dose was kept as low as reasonably a chievable to obtain optimal diagnostic quality images. DICOM format image data is available electro nically for review and comparison. FINDINGS: The brain is stable in appearance. There is a stent in the left posterior cerebral artery. Large roun ded focus of encephalomalacia is present in the left thalamus. There is patchy diminished attenuation in periventricular white matter. There is no evidence of intracranial mass or hemorrhage. There is n othing to suggest acute infarction. Extracranial structures are stable and benign. CONCLUSION: Stable brain. No acute findings. Henry Stephens MD on February 12, 2017 at 6:02 Board Certified Radiologist. This report was verified electronically.
[2017-02-12] MEDS: HEPARIN SODIUM - SQ 10,000 UNITS/ML VIAL SQ SCH ×3 (06:40→21:09)
--- NOTE | 2017-02-12 07:48 | HHI.CCPN ---
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 Her last seen normal time was approximately 1300 this afternoon. The patient was noted to have left-sided weakness. EMS was called. Patient had a witnessed generalized tonic clonic seizure by EMS which lasted a few minutes per report. Prior to arrival in the emergency apart and she received 2 mg of Ativan IV. In the emergency department she received 2 more milligrams of Ativan IV. Per the ER physician, she appeared to be postictal. She was out of the window for TPA. Dr. Milligan, neurology, was consulted and ordered MRI, CTA head/neck. CTA was negative for large vessel occlusion and demonstrated patent PHYSICAL AERODYNAMICIST stent. MRI demonstrated small area of infarction in the right parietal cortex. On my evaluation, her left sided weakness has started to improve compared to prior exams. her speech is slightly slurred, and difficult to tell if this is due to her somnolence or true dysarthria. she endorses left-sided weakness. denies numbness. denies shortness of breath, chest pain, headache, blurry vision, vision changes, or any other symptoms. She was initially on a non -rebreather mask, but this is being weaned down on my evaluation. Subjective 02/12: Currentlyon a nonrebreather mask but once takes off satting 94%. Left upper lobe extremity obviously weaker than right. Very anxious in bed. Complaining of headache and neck pain however states this is chronic over the past 2 months. White blood cell counts are elevated with an ESR 1. Highly doubtful meningitis/infectious etiology in light of new known 8mm right parietal CVA. Objective Vital Signs Date Time Temp Pulse Resp B/P (MAP) Pulse Ox O2 Delivery O2 Flow Rate FiO2 02/12/17 05:30 68 181/79 02/12/17 04:00 97.7 23 96 02/11/17 20:58 Venturi Mask 50 02/11/17 20:30 6.00 Intake and Output 02/12/17 02/12/17 02/13/17 08:00 16:00 00:00 Output Total 1225 ml Balance -1225 ml Result Diagram: 02/12/17 0203 02/12/17 0203 Imaging Last Impressions Head CT 02/12/17 0000 Signed Impressions: Service Date/Time: Sunday, February 12, 2017 04:57 - CONCLUSION: Stable brain. No acute findings. Henry Stephens MD Neck CTA 02/11/17 1602 Signed Impressions: Service Date/Time: Saturday, February 11, 2017 16:10 - CONCLUSION: Atherosclerotic disease but no evidence of significant carotid stenosis. Sam Welsh MD Head CTA 02/11/17 1602 Signed Impressions: Service Date/Time: Saturday, February 11, 2017 16:10 - CONCLUSION: Flow diverting stent of the left PHYSICAL AERODYNAMICIST in place. No aneurysm identified. Stent appears patent. Somewhat beaded appearance of the basilar artery likely representing atherosclerotic disease. Sam Welsh MD Chest X-Ray 02/11/17 0000 Signed Impressions: Service Date/Time: Saturday, February 11, 2017 16:58 - CONCLUSION: No acute cardiopulmonary disease identified. Sam Welsh MD Brain MRI 02/11/17 0000 Signed Impressions: Service Date/Time: Saturday, February 11, 2017 17:34 - CONCLUSION: 1. Small acute infarct in the right posterior parietal cortex/white matter. Adjacent more prominent area of white matter hyperintensity on the T2-weighted images likely are presenting chronic ischemic change. 2. Old left thalamic infarct. 3. Left-sided PHYSICAL AERODYNAMICIST flow diverting stent resulting in artifact. Sam Welsh MD Objective Remarks GENERAL: 71-year-old female, lying in bed, in mild distress due to her weaknessagitation HEENT: Normocephalic. Atraumatic. Pupils equal, round, reactive, conjugate by 3 mm bilaterally. Mucous membranes are moist and pink. Oropharynx without erythema NECK: Trachea is midline. There is no JVD. CHEST: Few fine crackles appreciated bilaterally anterior and posterior. Positive and extremity wheezes. CARDIOVASCULAR: Normal rate, regular rhythm. S1, S2. No S4. Without murmur ABDOMEN: Soft, nontender, nondistended. No guarding. MUSCULOSKELETAL: Pulses 2+. No peripheral edema. NEUROLOGICAL: JESUS MANUEL 5/5 on right upper and lower extremities. JESUS MANUEL 2/5 left upper extremity, 2/5 left lower extremity. sensation grossly intact. CN 2-12 grossly intact. pupils 3mm, equal, reactive, conjugate. speech slightly slurred, no noted facial droop. A/P Assessment and Plan Neuro/Psych: Acute right parietal CVA History of left thalamic CVA History of left PHYSICAL AERODYNAMICIST stent Seizure NOS Depression/anxiety Chronic headache Chronic neck pain MRI brain 02/11 revealed old left thalamic 3 mm CVA, periventricular white matter chronic ischemic changes, 8mm posterior parietal right-sided acute infarct. Left PHYSICAL AERODYNAMICIST stent. CTA brain 02/11 - beading in basilar artery likely atherosclerotic disease. PHYSICAL AERODYNAMICIST stent on left. ESR is 1 CTA neck 02/11 - mild atherosclerotic changes. No skin stenosis Loaded with fosphenytoin 1 g in ED. Level 10.2 this AM. Start 100 mg IV twice a day Currently on levetiracetam 500 mg IV twice a day EEG ordered Neurology consultation Seizure precautions Currently in aspirin 325 mg by mouth daily and clopidogrel 75 mg by mouth daily 2-D echo pending Holding anti-hypertensives to maintain passive hypertension for 24 hours post CVA Resume sertraline 25 mg by mouth daily/home medication Holding hydroxyzine 25-50 mg milligrams as needed for anxiety Currently on oxycodone 5 mill grams every 4 when necessary pain 7-10 Currently on cyclobenzaprine 5 mill grams by mouth every 8 hours when necessary muscle relaxant Currently on acetaminophen 650 mg by mouth every 6 hours when necessary fever/ pain 1-6 CV: Hypertension Elevated troponin Elevated triglycerides/total cholesterol Currently nitroglycerin drip at 1.5 mics grams per minute Continue aspirin 325 mill grams daily and clopidogrel 75 mg daily 2-D echocardiogram pending. Triglycerides are 364. Cholesterol is 231. LDL 95. Initiated on atorvastatin 40 mg by mouth daily Home medications are clonidine 0.2 mg twice a day, carvedilol 6.25 mg twice a day/Toprol 100 mg daily? And lisinopril 40 mg at night Early holding furosemide 20 milligrams by mouth daily/home medication Cycle troponins Cardiology consultation A.m. EKG pending Resp: Acute respiratory insufficiency Tobacco abuse Currently on partial nonrebreather to maintain saturations greater than equal to 92% Incentive spirometry while awake Albuterol/ipratropium aerosols every 6 hours with albuterol aerosols every 2 hours. Dyspnea We'll start on low-dose Solu-Medrol 40 mill grams IV every 8 hours and add budesonide/formoterol 160/4.52 puffs twice a day Chest x-ray revealed no acute findings CTPA ordered Tobacco cessation encouraged. Booklet for patient self education at the bedside GI: Gastroesophageal reflux disease Diverticulosis Currently on clear liquid diet Currently on pantoprazole 20 mg by mouth daily. On omeprazole 20 mg by mouth daily at home Docusate sodium/senna 100 mg as 8.6 mg 1 tablet twice a day for bowel regimen : No indication for Patterson catheter Endo: Diabetes mellitus Holding Sitagliptin 10 mg by mouth daily Sliding-scale insulin with Novulin R insulin/low regimen to maintain euglycemia/ before meals at bedtime TSH 0.668 Renal: Creatinine currently within normal limits Monitor urine output Accurate I's and O's Heme: Leukocytosis Monitor CBC daily. Follow trends ID: Monitor for infection FEN: Hyponatremia Replace electrolytes as clinically indicated Holding home medication potassium chloride 10 mEq daily while off furosemide MSK: PT evaluate and treat Access - Utilize peripheral IV. Central line if indicated Prophylaxis - GI - pantoprazole - DVT - SCD/heparin subcutaneous Level II follow-up Buster Sauceda MD Feb 12, 2017 07:48
[2017-02-12] MEDS ORDERED: RESP: ALBUTEROL 2.5 MG/3 ML NEB (PRN) NEB (08:00)
[2017-02-12] MEDS: ACETYLCYSTEINE 20% 6,000 MG/30 ML ORAL SOLN VIAL PO SCH ×2 (09:00→22:40)
[2017-02-12] MEDS: DOCUSATE SODIUM 50 MG/SENNA 8.6 MG TAB PO SCH ×2 (09:00→21:09)
[2017-02-12] MEDS ORDERED: ASPIRIN 325 MG TAB PO SCH (09:00)
[2017-02-12 09:05] LABS: TROPONIN I 0.06 NG/ML (0.02-0.05)
[2017-02-12] MEDS ORDERED: IOHEXOL 350 MG/ML 10 ML VIAL (for RAD DIAG) IVCONTRAST ONE (09:23)
--- NOTE | 2017-02-12 09:29 | RADRPT ---
EXAM DATE/TIME: 02/12/2017 09:06 [facility] COMPARISON: No previous studies available for comparison. INDICATIONS : Respiratory failure. IV CONTRAST: 65 cc Omnipaque 350 (iohexol) IV RADIATION DOSE: 16.03 CTDIvol (mGy) MEDICAL HISTORY : Myocardial infarction. Hypertension. Diabetes mellitus type 2. SURGICAL HISTORY : None. ENCOUNTER: Initial ACUITY: 1 day PAIN SCALE: Non-responsive LOCATION: chest TECHNIQUE: Volumetric scanning of the chest was performed using a pulmonary embolism protocol MIP images were re constructed. Using automated exposure control and adjustment of the mA and/or kV according to patien t size, radiation dose was kept as low as reasonably achievable to obtain optimal diagnostic quality images. DICOM format image data is available electronically for review and comparison. Follow-up recommendations for detected pulmonary nodules are based at a minimum on nodule size and pa tient risk factors according to Fleischner Society Guidelines. FINDINGS: PULMONARY ARTERIES: No filling defects are seen in the pulmonary arteries through the segmental level. LUNGS: There is no consolidation or pneumothorax . No concerning pulmonary nodule is visualized. Mild inte rstitial edema PLEURAE: Minimal bibasilar parenchymal changes MEDIASTINUM: Mild cardiomegaly without pericardial effusion prominent left ventricle MUSCULOSKELETAL: Within normal limits for patient age. MISCELLANEOUS: The visualized upper abdominal organs demonstrate no acute abnormality. CONCLUSION: 1. Negative for central pulmonary emboli 2. Mild cardiomegaly with left ventricle hypertrophy 3. Minimal bibasilar parenchymal changes. Christoph Woodward MD FACR on February 12, 2017 at 9:26 Board Certified Radiologist. This report was verified electronically.
[2017-02-12] MEDS: CLOPIDOGREL 75 MG TAB PO SCH (09:59)
[2017-02-12] MEDS: ATORVASTATIN 40 MG TAB PO SCH (09:59)
[2017-02-12] MEDS: SERTRALINE HCL 50 MG TAB PO SCH (10:00)
[2017-02-12] MEDS: PANTOPRAZOLE SOD 20 MG DELAYED RELEASE TAB PO SCH (10:00)
[2017-02-12] MEDS: levETIRAcetam INJ 500 MG in SODIUM CHLORIDE 0.9% INJ 100 ML IV SCH ×2 (10:01→21:10)
[2017-02-12 11:35] LABS: HEMOGLOBIN A1C 6.1 % (4.3-6.0)
--- NOTE | 2017-02-12 11:51 | PD.CONS ---
History of Present Illness Service Neurology Consult Requested By er Reason for Consult stroke alert Primary Care Physician Unknown History of Present Illness 71 y/o f presented to er as stroke alert. symptoms began 1pm. bp .240's sytolic. placed on nicardipene gtt. 1630 bp still >200. hx of previous stroke and DM. based on severe bp, focal seizures and out of 3 hr window for tpa with previous infarct/dm, tp not given. pt admits to still smoking 1 ppd x decades. not sure if she is taking her medications as she should. has been to and received a left program director substance abuse stent. she states 2 months ago. has been previously admitted for htn crisis. feels better, bp still elevated in icu. left sided stronger Review of Systems as above Past Family Social History Allergies: Coded Allergies: grass pollen (Unverified Allergy, Severe, 10/04/16) house dust (Unverified Allergy, Severe, 10/04/16) ipratropium (Unverified Allergy, Severe, 10/04/16) aspirin (Unverified Allergy, Mild, 10/04/16) states it makes her stomach upset, but she can take it egg (Unverified Allergy, Mild, 10/04/16) codeine (Unverified Adverse Reaction, Intermediate, NAUSEA, 10/04/16) Past Medical History Arthritis Anxiety stroke Diabetes Diverticulosis Headaches Hypertension Prior myocardial infarction Past Surgical History Thyroid surgery Hysterectomy Left breast incision Left 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 aneurysm repaired with stent placement Back surgery Tonsillectomy Reported Medications Toprol XL (Metoprolol Succinate) 100 Mg Tab 100 Mg PO HS Clonidine (Clonidine HCl) 0.2 Mg Tab 0.2 Mg PO Q12HR Omeprazole 20 Mg Tab 20 Mg PO DAILY Aspirin Adult Low Strength (Aspirin) 81 Mg Tabdr 81 Mg PO DAILY Hydroxyzine Pamoate 25 Mg Cap 25-50 Mg PO HS PRN Lisinopril 40 Mg Tab 40 Mg PO HS Sertraline (Sertraline HCl) 25 Mg Tab 25 Mg PO DAILY Januvia (Sitagliptin Phosphate) 100 Mg Tab 100 Mg PO DAILY Lasix (Furosemide) 20 Mg Tab 20 Mg PO HS Plavix (Clopidogrel Bisulfate) 75 Mg Tab 75 Mg PO DAILY Coreg (Carvedilol) 6.25 Mg Tab 6.25 Mg PO BID Active Ordered Medications See MAR Family History htn Social History 1 ppd x decades, negative for EtOH or drugs of abuse Review of Systems All other ROS: ROS reviewed as documented in chart Past Family Social History Allergies: Coded Allergies: grass pollen (Unverified Allergy, Severe, 10/04/16) house dust (Unverified Allergy, Severe, 10/04/16) ipratropium (Unverified Allergy, Severe, 10/04/16) aspirin (Unverified Allergy, Mild, 10/04/16) states it makes her stomach upset, but she can take it egg (Unverified Allergy, Mild, 10/04/16) codeine (Unverified Adverse Reaction, Intermediate, NAUSEA, 10/04/16) Active Ordered Medications Current Medications Medications (Trade) Dose Ordered Sig/Gregory Route Start Time Stop Time Status Last Admin Nicardipine HCl 25 mg/Sodium Chloride 250 ml @ 50 mls/hr TITRATE PRN IV 02/11/17 19:30 02/11/17 21:07 Potassium Chloride 100 ml @ 50 mls/hr Q2H PRN IV 02/11/17 19:30 Potassium Chloride 100 ml @ 50 mls/hr Q2H PRN IV 02/11/17 19:30 (K-Lyte Cl Eff) 50 meq UNSCH PRN PO 02/11/17 19:30 Potassium Chloride 100 ml @ 25 mls/hr UNSCH PRN IV 02/11/17 19:30 Potassium Chloride 100 ml @ 50 mls/hr Q2H PRN IV 02/11/17 19:30 Magnesium Sulfate 4 gm/Sodium Chloride 100 ml @ 50 mls/hr UNSCH PRN IV 02/11/17 19:30 (Mag-Ox) 800 mg UNSCH PRN PO 02/11/17 19:30 Magnesium Sulfate 2 gm/Sodium Chloride 100 ml @ 50 mls/hr UNSCH PRN IV 02/11/17 19:30 (K-Phos) 2,000 mg Q4H PRN PO 02/11/17 19:30 Sodium Phosphate 30 mmol/Sodium Chloride 250 ml @ 42 mls/hr UNSCH PRN IV 02/11/17 19:30 (K-Phos) 2,000 mg UNSCH PRN PO/TUBE 02/11/17 19:30 Potassium Phosphate 30 mmol/ Sodium Chloride 260 ml @ 42 mls/hr UNSCH PRN IV 02/11/17 19:30 (D50w (Vial) Inj) 25 ml UNSCH PRN IV PUSH 12/23/17 19:30 (Duoneb Neb) 1 ampule Q6HR NEB INH 02/11/17 22:00 02/12/17 10:27 Levetriacetam 500 mg/Sodium Chloride 105 ml @ 420 mls/hr Q12HR IV 02/12/17 09:00 02/12/17 10:01 (Tylenol) 650 mg Q6H PRN PO 02/11/17 19:30 (Zofran Inj) 4 mg Q6H PRN IV PUSH 02/11/17 19:30 (Heparin Inj) 5,000 units Q8HR SQ 02/11/17 22:00 02/12/17 06:40 Miscellaneous Information 1 Q361D XX 02/11/17 19:30 (Chlorhexidine 2% Cloth) 3 pack Taper DAILY@04 TOP 02/12/17 04:00 02/08/18 03:59 (Chlorhexidine 2% Cloth) 3 pack UNSCH PRN TOP 02/11/17 19:30 (Kenia-Colace) 1 tab BID PO 02/11/17 21:00 02/12/17 09:00 (Milk Of Magnesia Liq) 30 ml Q12H PRN PO 02/11/17 19:30 (Aspirin) 325 mg DAILY PO 02/12/17 09:00 02/12/17 10:00 (Lipitor) 40 mg DAILY PO 02/12/17 09:00 02/12/17 09:59 (Flexeril) 5 mg Q8H PRN PO 02/12/17 01:45 02/12/17 10:51 (Plavix) 75 mg DAILY PO 02/12/17 09:00 02/12/17 09:59 (Protonix) 20 mg DAILY PO 02/12/17 09:00 02/12/17 10:00 (Zoloft) 25 mg DAILY PO 02/12/17 09:00 02/12/17 10:00 Nitroglycerin/ Dextrose 250 ml @ 0.9 mls/hr TITRATE PRN IV 02/12/17 04:15 02/12/17 05:30 (Mucomyst 20% Liq) 600 mg BID PO 02/12/17 09:00 02/13/17 21:01 02/12/17 09:00 (Albuterol Neb) 2.5 mg Q2HR NEB PRN NEB 02/12/17 08:00 (NovoLIN R SUPPLEMENTAL SCALE) 1 ACHS SQ 02/12/17 08:00 02/12/17 08:00 (Roxicodone) 5 mg Q3HR WHILE AWAKE NEB PRN PO 02/12/17 08:00 02/12/17 09:59 (Cerebyx Inj) 100 mgpe Q8HR IV 02/12/17 14:00 Exam I&O / VS Vital Signs Date Time Temp Pulse Resp B/P (MAP) Pulse Ox O2 Delivery O2 Flow Rate FiO2 02/12/17 10:59 30 02/12/17 10:28 94 Venturi Mask 50 02/12/17 09:45 68 212/95 02/12/17 08:00 98.5 68 23 144/101 (115) 95 02/12/17 07:00 74 02/12/17 07:00 95 Venturi Mask 6.00 50 02/12/17 05:30 68 181/79 02/12/17 04:00 97.7 75 23 141/61 (87) 96 02/12/17 03:47 73 120/57 02/12/17 02:52 24 02/12/17 02:45 74 157/71 02/12/17 00:00 97.6 72 24 170/101 (124) 96 02/11/17 23:45 67 170/101 02/11/17 23:00 65 02/11/17 21:07 68 160/100 02/11/17 20:58 96 Venturi Mask 50 02/11/17 20:30 99.0 66 20 161/76 (104) 96 02/11/17 20:30 66 02/11/17 20:30 96 Venturi Mask 6.00 50 02/11/17 19:54 64 20 192/90 (124) 99 Venturi Mask 02/11/17 19:30 64 20 211/98 (135) 98 Venturi Mask 02/11/17 19:20 96 Venturi Mask 50 02/11/17 19:15 70 18 152/75 (100) 99 Venturi Mask 02/11/17 19:02 62 18 176/81 (112) 93 Partial Rebreather 10.00 02/11/17 19:00 99 Non-Rebreather 12.00 02/11/17 18:11 62 198/101 02/11/17 18:09 61 16 198/101 (133) 97 Partial Rebreather 8.00 02/11/17 17:24 59 16 145/71 (95) 97 Partial Rebreather 8.00 02/11/17 17:10 62 14 187/85 (119) 98 Partial Rebreather 8.00 02/11/17 16:53 68 230/108 02/11/17 16:50 68 14 199/92 (127) 93 Nasal Cannula 2.00 02/11/17 16:21 72 16 216/100 (138) 93 Nasal Cannula 2.00 02/11/17 16:01 85 18 236/132 (166) 98 02/11/17 16:00 22 93 Nasal Cannula 4.00 02/11/17 16:00 93 Nasal Cannula 4.00 General: Alert and Oriented, No acute distress Eye: Normal conjuctiva Respiratory: Non-labored respirations Neurologic: Alert, Oriented Psychiatric: Cooperative Exam Comments ox 2. not to date, follows, eomi, vff, face sym, mild rt sided spasticity, able to raise all 4 ext to gravity, no neglect, pin intact all 4, no neglect Review/Management Diagnosis/Plan: (1) Posterior reversible encephalopathy syndrome (PRES) ICD Codes: I67.83 - Posterior reversible encephalopathy syndrome Status: Acute Plan: mri brain reviewed. tiny dot size possible high rt high hemispheric infarct most significant finding is increased high signal on flair in the bilateral subcortical region suggestive of PRES severe htn + sz + mri findings + mental status changes = PRES recs bp control; gradually lower to normotensive range- per medical plavix tobacco cessation iv cerebyrx eeg p.t./s.t. follow exam (2) Chronic ischemic left 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 stroke ICD Codes: I69.30 - Unspecified sequelae of cerebral infarction Status: Chronic (3) Hypertensive urgency ICD Codes: I16.0 - Hypertensive urgency Status: Acute (4) Tobacco abuse ICD Codes: Z72.0 - Tobacco use Status: Chronic Plan: cessation encouraged. risk d/w pt cancer, stroke, mi etc.. Ross Milligan MD Feb 12, 2017 11:51
--- NOTE | 2017-02-12 12:38 | MB ---
cc: SENA GALAN M.D. DATE OF CONSULTATION: 02/12/2017 REASON FOR CONSULTATION: Elevated troponin. 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 She has a background history of hypertension. She is on multiple medications for hypertension. She presented with new onset of weakness. I actually spoke to Dr. Reza last night on her. She has had several EKGs to suggest left ventricular hypertrophy. The patient is able to talk and I asked her if she has felt any chest pain. I could not elicit any chest pain from her. PAST MEDICAL HISTORY: 1. Arthritis. 2. Anxiety. 3. Prior stroke with no residual deficit. 4. Diabetes. 5. Diverticulosis. 6. Headaches. 7. Hypertension. 8. Possible prior [place]. I cannot verify that. PAST SURGICAL HISTORY: 1. Thyroid surgery. 2. Hysterectomy. 3. Left breast surgery. 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 5. Back surgery. 6. Tonsillectomy. MEDICATIONS Medications include: 1. Toprol XL 100 mg at bedtime. 2. Clonidine 0.2 q12. 3. Omeprazole. 4. Aspirin 81 milligrams 5. Hydroxyzine 25 mg at bedtime. 6. Lisinopril 40 mg. 7. Sertraline 25 mg. 8. Januvia. 9. Lasix 20 mg. 10. Plavix 75 mg. 11. Carvedilol 6.25 b.i.d. FAMILY HISTORY Denies any family history of heart disease. SOCIAL HISTORY Notable for lifelong smoking. PHYSICAL EXAMINATION: Shows a well-developed female. She is laying sideways in bed and had to be assisted to get position properly in bed. VITAL SIGNS: Blood pressures have been elevated, mostly because of ischemic stroke. HEENT: Exam is unremarkable. NECK: I could not appreciate any bruits. CARDIAC: S1-S2 regular rate and rhythm. There is a soft 1/6 systolic murmur. ABDOMEN: Soft. EXTREMITIES: Reveal intact pulses. No peripheral edema. NEUROLOGIC: She is awake. She has some somnolence. She is not complaining of any chest pain. LABORATORY DATA: Her troponins have gone from 0.13 down to 0.06, creatinine is normal at 0.74, hematocrit is now normal 44.1. It was 51.0 yesterday. IMAGING STUDIES: Brain MRI showing a small acute infarct in the right posterior parietal cortex white matter and old left thalamic infarct. There is also left-sided ELEMENTARY SPANISH TEACHER flow, diverting stent resulting in artifact. EKG shows sinus rhythm. There is increased voltage in one and aVL with ST-T wave changes suggestive of left ventricular hypertrophy. There is some fluctuation in appearance in 3 and aVF. All-in-all do not suspect an [place] or non STEMI on the EKG. IMPRESSION A 71 year-old female with hypertension, diabetes and smoking with an acute CVA. I do not think she is having an acute infarct. Troponins are slightly elevated but in a relatively nonspecific fashion. RECOMMENDATIONS At this point would have her stroke managed by the 8th grade teacher. Would prefer not to do stress testing or cardiac catheterization during his admission. She is being maintained on aspirin products and has been on a beta-marcell. These would be appropriate medications to protect her heart. At this point cardiology will be available as needed. Dr. Ramirez will be cartoonist special effects starting yesterday. Please call if there are any questions. MD VIC Wyatt/REINA /10:21 AM /11:39 AM
[2017-02-12] MEDS: methylPREDNISolone SOD SUCC 40 MG/1 ML VIAL IV PUSH SCH ×2 (13:36→21:09)
[2017-02-12] MEDS: FOSPHENYTOIN SODIUM 100 MG PE/2 ML VIAL IV SCH ×2 (13:37→21:09)
[2017-02-12] MEDS ORDERED: LISINOPRIL 5 MG TAB PO ONE (14:30)
[2017-02-12] MEDS ORDERED: cloNIDine HCL 0.1 MG TAB PO ONE (14:30)
[2017-02-12] MEDS ORDERED: CARVEDILOL 3.125 MG TAB PO ONE (14:30)
[2017-02-12 14:52] LABS: TROPONIN I 0.07 NG/ML (0.02-0.05)
--- NOTE | 2017-02-12 16:02 | OTSOAPIP ---
TIME SESSION COMPLETED: 923 TREATMENT TIME: 0 MINS. CHART REVIEWED. O: ATTEMPTED TO SEE FOR OT EVALUATION, HOWEVER WAS OFF THE FLOOR FOR TESTING. WILL FOLLOW NEXT DAY. Therapist: LENIN PIERSON OT/Ramila Signature on file
--- NOTE | 2017-02-12 17:37 | ECHRPT ---
Indication: CVA/TIA CONCLUSIONS Normal left ventricular size. Moderate concentric left ventricular hypertrophy. The left ventricular systolic function is normal with an estimated ejection fraction in the range of 60-65%. Aortic valve sclerosis is present. BP: / HR: Rhythm: MEASUREMENTS (Male / Female) Normal Values Technical Quality:Fair 2D ECHO LV Diastolic Diameter PLAX 4.1 cm 4.2 - 5.9 / 3.9 - 5.3 cm LV Systolic Diameter PLAX 2.8 cm IVS Diastolic Thickness 2.1 cm 0.6 - 1.0 / 0.6 - 0.9 cm LVPW Diastolic Thickness 0.9 cm 0.6 - 1.0 / 0.6 - 0.9 cm LV Relative Wall Thickness 0.7 RV Internal Dim ED PLAX 2.4 cm LA Systolic Diameter LX 3.9 cm 3.0 - 4.0 / 2.7 - 3.8 cm DOPPLER Mitral E Point Velocity 67.6 cm/s Mitral A Point Velocity 99.2 cm/s Mitral E to A Ratio 0.7 TR Peak Velocity 156.0 cm/s TR Peak Gradient 9.7 mmHg Right Atrial Pressure 10.0 mmHg Pulmonary Artery Systolic Pressu 19.7 mmHg Right Ventricular Systolic Press 19.7 mmHg FINDINGS LEFT VENTRICLE Normal left ventricular size. Moderate concentric left ventricular hypertrophy. The left ventricular systolic function is normal with an estimated ejection fraction in the range of 60-65%. RIGHT VENTRICLE Normal right ventricular size and systolic function. LEFT ATRIUM The left atrial size is normal. RIGHT ATRIUM The right atrial size is normal. ATRIAL SEPTUM Normal atrial septal thickness without atrial level shunting by limited color doppler interrogation. AORTA The aortic root and proximal ascending aorta are normal in size on limited imaging. MITRAL VALVE Structurally normal mitral valve. No mitral valve stenosis or regurgitation. AORTIC VALVE Aortic valve sclerosis is present. TRICUSPID VALVE Structurally normal tricuspid valve. No tricuspid valve stenosis or regurgitation. PULMONARY VALVE No pulmonary valve regurgitation or stenosis. VESSELS The inferior vena cava is normal in size. PERICARDIUM No pericardial effusion. Allen Davis MD, FACC (Electronically Signed) Final Date:12 February 2017 17:36
--- NOTE | 2017-02-12 18:37 | EKG ---
Date Performed: 02/12/2017 Time Performed: 04:19:34 PTAGE: 71 years EKG: Sinus arrhythmia. Leftward axis Inferior infarct - age undetermined Cannot rule out anteros eptal infarct - age undetermined Left ventricular hypertrophy Lateral ST-T changes are possibly due t o ventricular hypertrophy Abnormal ECG PREVIOUS TRACING : 02/12/2017 01.30 Compared to prior tracing no significant change DOCTOR: Allen Davis Interpretating Date/Time 02/12/2017 18:35:49
[2017-02-12] MEDS: LISINOPRIL 5 MG TAB PO SCH (21:10)
[2017-02-12] MEDS: cloNIDine HCL 0.1 MG TAB PO SCH (21:10)
[2017-02-12] MEDS: CARVEDILOL 3.125 MG TAB PO SCH (21:10)
--- NOTE | 2017-02-12 21:30 | EKG ---
Date Performed: 02/12/2017 Time Performed: 01:30:44 PTAGE: 71 years EKG: Sinus rhythm . Inferior infarct - age undetermined Possible anteroseptal infarct - age undetermined Left ventricul ar hypertrophy Lateral ST-T changes are possibly due to ventricular hypertrophy Abnormal ECG PREVIOUS TRACING : 02/11/2017 16.35 Compared to prior tracing no significant change DOCTOR: Allen Davis Interpretating Date/Time 02/12/2017 21:29:40
[2017-02-12 22:05] LABS: TROPONIN I 0.05 NG/ML (0.02-0.05)
[2017-02-12] MEDS: BUDESONIDE-FORMOTEROL 160/4.5 MCG INHALER INH SCH (22:48)
[2017-02-13] VITALS (10 sets, daily range): BP systolic 116–184; BP diastolic 64–85; PULSE 51–65; RESP 16–24; TEMP 97.8–99.3; O2SAT 93–97
[2017-02-13] MEDS: RESP: ALBUTEROL 2.5 MG/IPRATROPIUM 0.5 MG NEB (SCH) INH ×2 (03:19→08:26)
[2017-02-13] MEDS: CHLORHEXIDINE GLUCONATE 2 % 1 PACK (2 CLOTHS) TOP SCH ×2 (04:00→22:53)
[2017-02-13] MEDS: methylPREDNISolone SOD SUCC 40 MG/1 ML VIAL IV PUSH SCH ×3 (05:20→21:37)
[2017-02-13] MEDS: FOSPHENYTOIN SODIUM 100 MG PE/2 ML VIAL IV SCH (05:21)
[2017-02-13] MEDS: HEPARIN SODIUM - SQ 10,000 UNITS/ML VIAL SQ SCH ×3 (05:21→21:36)
[2017-02-13 05:33] LABS: HEMATOCRIT 40.7 % (35.0-46.0); HEMOGLOBIN 13.6 GM/DL (11.6-15.3); MEAN CELL VOLUME 89.1 FL (80.0-100.0); MEAN CORPUSCULAR HEMOGLOBIN 29.7 PG (27.0-34.0); MEAN CORPUSCULAR HGB CONC 33.4 % (32.0-36.0); MEAN PLATELET VOLUME 11.4 FL (7.0-11.0); PLATELET COUNT 125 TH/MM3 (150-450); RED BLOOD COUNT 4.57 MIL/MM3 (4.00-5.30); RED CELL DISTRIBUTION WIDTH 12.5 % (11.6-17.2); WHITE BLOOD COUNT 5.3 TH/MM3 (4.0-11.0)
[2017-02-13 05:55] LABS: BICARBONATE 25.7 MEQ/L (21.0-32.0); CALCIUM 9.7 MG/DL (8.5-10.1); CREATININE 0.76 MG/DL (0.50-1.00)
[2017-02-13 05:56] LABS: PHENYTOIN (DILANTIN) 9.1 MCG/ML (10.0-20.0)
[2017-02-13 07:24] LABS: CREATININE, RANDOM URINE 228.1 MG/DL
[2017-02-13] MEDS: INSULIN NovoLIN REGULAR SUPPLEMENTAL SCALE SQ SCH ×4 (08:00→21:00)
[2017-02-13] MEDS: levETIRAcetam INJ 500 MG in SODIUM CHLORIDE 0.9% INJ 100 ML IV SCH ×2 (08:29→21:36)
[2017-02-13] MEDS: PANTOPRAZOLE SOD 20 MG DELAYED RELEASE TAB PO SCH (08:29)
[2017-02-13] MEDS: LISINOPRIL 5 MG TAB PO SCH (08:29)
[2017-02-13] MEDS: CARVEDILOL 3.125 MG TAB PO SCH (08:30)
[2017-02-13] MEDS: ATORVASTATIN 40 MG TAB PO SCH (08:30)
[2017-02-13] MEDS: SERTRALINE HCL 50 MG TAB PO SCH (08:30)
[2017-02-13] MEDS: DOCUSATE SODIUM 50 MG/SENNA 8.6 MG TAB PO SCH ×2 (08:30→21:36)
[2017-02-13] MEDS: CLOPIDOGREL 75 MG TAB PO SCH (08:30)
[2017-02-13] MEDS: cloNIDine HCL 0.1 MG TAB PO SCH (08:30)
--- NOTE | 2017-02-13 08:58 | MG ---
cc: COLLIN ROSS MD Lab No: Date: 02/12/2017 Age: 71 Sex: F Race: DATE OF : 1945 HISTORY: 71-year-old severe hypertension, confusion, seizure type activity. DESCRIPTION OF THE RECORDIN-6 Hz activity 20-60 microvolts followed by 2-3 Hz delta spindles. Disorganized EEG. Spindle activity suggestive of stage 2 sleep. Subtle asymmetric right hemispheric slowing noted on epoch 103. Reduced driving with photic stimulation. Single lead EKG showing sinus rhythm. Good EEG variability reactivity. INTERPRETATION: Mild to moderate encephalopathy. Dleep state. No active seizures. Clinical correlation. Collin Ross MD /JCC /9:49 PM /8:40 AM
[2017-02-13] MEDS: ASPIRIN 81 MG CHEW TAB PO SCH (09:00)
[2017-02-13] MEDS: BUDESONIDE-FORMOTEROL 160/4.5 MCG INHALER INH SCH ×2 (09:00→21:35)
[2017-02-13] MEDS: ACETYLCYSTEINE 20% 6,000 MG/30 ML ORAL SOLN VIAL PO SCH ×2 (09:00→21:03)
--- NOTE | 2017-02-13 09:14 | EKG ---
Date Performed: 02/11/2017 Time Performed: 16:35:24 PTAGE: 71 years EKG: Sinus rhythm POSSIBLE LEFT ATRIAL ENLARGEMENT LEFT VENTRICULAR HYPERTROPHY AND ST-T CHANGE SEPTAL MYOCARDIAL INFA RCTION INFERIOR MYOCARDIAL INFARCTION ABNORMAL ECG PREVIOUS TRACING : 05/05/2016 11.04 Compared to prior tracing no significant change DOCTOR: Allen Davis Interpretating Date/Time 02/13/2017 09:13:06
--- NOTE | 2017-02-13 10:29 | HHI.PR ---
Review/Management Diagnosis/Plan: (1) Posterior reversible encephalopathy syndrome (PRES) ICD Codes: I67.83 - Posterior reversible encephalopathy syndrome Status: Acute Plan: mri brain reviewed. tiny dot size possible high rt high hemispheric infarct most significant finding is increased high signal on flair in the bilateral subcortical region suggestive of PRES severe htn + sz + mri findings + mental status changes = PRES recs neuro improved ok for [facility]th [facility] with tele d/c planning once bp stabilized p.t./s.t. 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 risk d/w pt cancer, stroke, mi etc.. Subjective Subjective Comments No acute events reported No headache No chest pain No dyspnea Active Medications Current Medications Medications (Trade) Dose Ordered Sig/Gregory Route Start Time Stop Time Status Last Admin Nicardipine HCl 25 mg/Sodium Chloride 250 ml @ 50 mls/hr TITRATE PRN IV 02/11/17 19:30 02/11/17 21:07 Potassium Chloride 100 ml @ 50 mls/hr Q2H PRN IV 02/11/17 19:30 Potassium Chloride 100 ml @ 50 mls/hr Q2H PRN IV 02/11/17 19:30 (K-Lyte Cl Eff) 50 meq UNSCH PRN PO 02/11/17 19:30 Potassium Chloride 100 ml @ 25 mls/hr UNSCH PRN IV 02/11/17 19:30 Potassium Chloride 100 ml @ 50 mls/hr Q2H PRN IV 02/11/17 19:30 Magnesium Sulfate 4 gm/Sodium Chloride 100 ml @ 50 mls/hr UNSCH PRN IV 02/11/17 19:30 (Mag-Ox) 800 mg UNSCH PRN PO 02/11/17 19:30 Magnesium Sulfate 2 gm/Sodium Chloride 100 ml @ 50 mls/hr UNSCH PRN IV 02/11/17 19:30 (K-Phos) 2,000 mg Q4H PRN PO 02/11/17 19:30 Sodium Phosphate 30 mmol/Sodium Chloride 250 ml @ 42 mls/hr UNSCH PRN IV 02/11/17 19:30 (K-Phos) 2,000 mg UNSCH PRN PO/TUBE 02/11/17 19:30 Potassium Phosphate 30 mmol/ Sodium Chloride 260 ml @ 42 mls/hr UNSCH PRN IV 02/11/17 19:30 (D50w (Vial) Inj) 25 ml UNSCH PRN IV PUSH 02/11/17 19:30 (Duoneb Neb) 1 ampule Q6HR NEB INH 02/11/17 22:00 02/13/17 08:26 Levetriacetam 500 mg/Sodium Chloride 105 ml @ 420 mls/hr Q12HR IV 02/12/17 09:00 02/13/17 08:29 (Tylenol) 650 mg Q6H PRN PO 02/11/17 19:30 (Zofran Inj) 4 mg Q6H PRN IV PUSH 02/11/17 19:30 (Heparin Inj) 5,000 units Q8HR SQ 02/11/17 22:00 02/13/17 05:21 Miscellaneous Information 1 Q361D XX 02/11/17 19:30 (Chlorhexidine 2% Cloth) 3 pack Taper DAILY@04 TOP 02/12/17 04:00 02/08/18 03:59 (Chlorhexidine 2% Cloth) 3 pack UNSCH PRN TOP 02/11/17 19:30 (Kenia-Colace) 1 tab BID PO 02/11/17 21:00 02/13/17 08:30 (Milk Of Magnesia Liq) 30 ml Q12H PRN PO 02/11/17 19:30 (Lipitor) 40 mg DAILY PO 02/12/17 09:00 02/13/17 08:30 (Flexeril) 5 mg Q8H PRN PO 02/12/17 01:45 02/12/17 10:51 (Plavix) 75 mg DAILY PO 02/12/17 09:00 02/13/17 08:30 (Protonix) 20 mg DAILY PO 02/12/17 09:00 02/13/17 08:29 (Zoloft) 25 mg DAILY PO 02/12/17 09:00 02/13/17 08:30 Nitroglycerin/ Dextrose 250 ml @ 0.9 mls/hr TITRATE PRN IV 02/12/17 04:15 02/12/17 05:30 (Mucomyst 20% Liq) 600 mg BID PO 02/12/17 09:00 02/13/17 21:01 02/12/17 22:40 (Albuterol Neb) 2.5 mg Q2HR NEB PRN NEB 02/12/17 08:00 (NovoLIN R SUPPLEMENTAL SCALE) 1 ACHS SQ 02/12/17 08:00 02/12/17 21:11 (Roxicodone) 5 mg Q3HR WHILE AWAKE NEB PRN PO 02/12/17 08:00 02/12/17 09:59 (Cerebyx Inj) 100 mgpe Q8HR IV 02/12/17 14:00 02/13/17 05:21 (Aspirin Chew) 81 mg DAILY PO 02/13/17 09:00 (SoluMEDROL INJ) 40 mg Q8HR IV PUSH 02/12/17 14:00 02/13/17 05:20 (Symbicort 160-4.5 Mcg Inh) 2 puff Q12HR INH 02/12/17 21:00 02/12/17 22:48 (Prinivil) 5 mg Q12HR PO 02/12/17 21:00 02/13/17 08:29 (Catapres) 0.1 mg Q12HR PO 02/12/17 21:00 02/13/17 08:30 (Coreg) 3.125 mg Q12HR PO 02/12/17 21:00 02/13/17 08:30 Allergies Allergies Coded Allergies grass pollen (Unverified Allergy, Severe, 10/04/16) house dust (Unverified Allergy, Severe, 10/04/16) ipratropium (Unverified Allergy, Severe, 10/04/16) aspirin (Unverified Allergy, Mild, 10/04/16) egg (Unverified Allergy, Mild, 10/04/16) codeine (Unverified Adverse Reaction, Intermediate, NAUSEA, 10/04/16) Review of Systems All other ROS: ROS reviewed as documented in chart Exam I&O / VS Vital Signs Date Time Temp Pulse Resp B/P (MAP) Pulse Ox O2 Delivery O2 Flow Rate FiO2 02/13/17 07:40 96 Venturi Mask 50 02/13/17 04:00 98.6 56 17 116/85 (95) 94 02/13/17 00:00 97.8 58 24 141/68 (92) 96 02/12/17 23:00 63 02/12/17 20:18 95 Venturi Mask 50 02/12/17 20:00 98.3 63 15 126/96 (106) 96 02/12/17 19:00 95 Venturi Mask 6.00 50 02/12/17 16:00 98.9 65 17 144/64 (90) 95 02/12/17 15:36 68 180/74 02/12/17 15:36 67 180/74 02/12/17 15:00 70 02/12/17 12:00 98.5 79 22 159/74 (102) 94 02/12/17 10:59 30 02/12/17 10:28 94 Venturi Mask 50 General: Alert and Oriented, No acute distress Eye: Normal conjuctiva Respiratory: Non-labored respirations Neurologic: Alert, Oriented Psychiatric: Cooperative Exam Comments ox3, pleasant, follows, eomi, vff, face sym, mild rt sided spasticity, able to raise all 4 ext to gravity, no neglect, pin intact all 4, no neglect Objective Micro and Labs Laboratory Tests Test 02/12/17 14:23 02/12/17 21:17 02/13/17 04:56 02/13/17 06:40 Total Creatine Kinase 140 106 Creatine Kinase MB 1.5 1.4 Troponin I 0.07 0.05 White Blood Count 5.3 Red Blood Count 4.57 Hemoglobin 13.6 Hematocrit 40.7 Mean Corpuscular Volume 89.1 Mean Corpuscular Hemoglobin 29.7 Mean Corpuscular Hemoglobin Concent 33.4 Red Cell Distribution Width 12.5 Platelet Count 125 Mean Platelet Volume 11.4 Blood Urea Nitrogen 15 Creatinine 0.76 Random Glucose 147 Calcium Level 9.7 Sodium Level 140 Potassium Level 4.1 Chloride Level 107 Carbon Dioxide Level 25.7 Anion Gap 7 Estimat Glomerular Filtration Rate 75 Phenytoin (Dilantin) Level 9.1 Urine Eosinophils NONE SEEN Urine Random Creatinine 228.1 Urine Random Sodium 42 Ross Milligan MD Feb 13, 2017 10:29
[2017-02-13] MEDS: PHENYTOIN 50 MG CHEWABLE TAB PO SCH ×3 (11:00→21:37)
--- NOTE | 2017-02-13 11:20 | HHI.CCPN ---
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 Her last seen normal time was approximately 1300 this afternoon. The patient was noted to have left-sided weakness. EMS was called. Patient had a witnessed generalized tonic clonic seizure by EMS which lasted a few minutes per report. Prior to arrival in the emergency apart and she received 2 mg of Ativan IV. In the emergency department she received 2 more milligrams of Ativan IV. Per the ER physician, she appeared to be postictal. She was out of the window for TPA. Dr. Milligan, neurology, was consulted and ordered MRI, CTA head/neck. CTA was negative for large vessel occlusion and demonstrated patent DOPE HOUSE OPERATOR HELPER stent. MRI demonstrated small area of infarction in the right parietal cortex. On my evaluation, her left sided weakness has started to improve compared to prior exams. her speech is slightly slurred, and difficult to tell if this is due to her somnolence or true dysarthria. she endorses left-sided weakness. denies numbness. denies shortness of breath, chest pain, headache, blurry vision, vision changes, or any other symptoms. She was initially on a non -rebreather mask, but this is being weaned down on my evaluation. 02/12: Currently on a nonrebreather mask but once takes off satting 94%. Left upper and lower extremity obviously weaker than right. Very anxious in bed. Complaining of headache and neck pain however states this is chronic over the past 2 months. White blood cell counts are elevated with an ESR 1. Highly doubtful meningitis/infectious etiology in light of new known 8mm right parietal CVA. Subjective 02/13: Currently resting in bed on nasal cannula. Off all continuous intravenous antihypertensives. Increase strength in left upper extremity and lower extremity. Afebrile. Objective Vital Signs Date Time Temp Pulse Resp B/P (MAP) Pulse Ox O2 Delivery O2 Flow Rate FiO2 02/13/17 09:00 97 Nasal Cannula 4.00 02/13/17 08:00 98.4 52 16 163/72 (102) 02/13/17 07:40 50 Intake and Output 02/13/17 02/13/17 02/14/17 08:00 16:00 00:00 Output Total 200 ml Balance -200 ml Result Diagram: 02/13/17 0456 02/13/17 0456 Imaging Last Impressions Head CT 02/12/17 0000 Signed Impressions: Service Date/Time: Sunday, February 12, 2017 04:57 - CONCLUSION: Stable brain. No acute findings. Henry Stephens MD CT Angiography 02/12/17 0000 Signed Impressions: Service Date/Time: Sunday, February 12, 2017 09:06 - CONCLUSION: 1. Negative for central pulmonary emboli 2. Mild cardiomegaly with left ventricle hypertrophy 3. Minimal bibasilar parenchymal changes. Christoph Woodward MD FACR Neck CTA 02/11/17 1602 Signed Impressions: Service Date/Time: Saturday, February 11, 2017 16:10 - CONCLUSION: Atherosclerotic disease but no evidence of significant carotid stenosis. Sam Welsh MD Head CTA 02/11/17 1602 Signed Impressions: Service Date/Time: Saturday, February 11, 2017 16:10 - CONCLUSION: Flow diverting stent of the left DOPE HOUSE OPERATOR HELPER in place. No aneurysm identified. Stent appears patent. Somewhat beaded appearance of the basilar artery likely representing atherosclerotic disease. Sam Welsh MD Chest X-Ray 02/11/17 0000 Signed Impressions: Service Date/Time: Saturday, February 11, 2017 16:58 - CONCLUSION: No acute cardiopulmonary disease identified. Sam Welsh MD Brain MRI 02/11/17 0000 Signed Impressions: Service Date/Time: Saturday, February 11, 2017 17:34 - CONCLUSION: 1. Small acute infarct in the right posterior parietal cortex/white matter. Adjacent more prominent area of white matter hyperintensity on the T2-weighted images likely are presenting chronic ischemic change. 2. Old left thalamic infarct. 3. Left-sided DOPE HOUSE OPERATOR HELPER flow diverting stent resulting in artifact. Sam Welsh MD Objective Remarks GENERAL: 71-year-old female, lying in bed, in mild distress due to her weaknessagitation HEENT: Normocephalic. Atraumatic. Pupils equal, round, reactive, conjugate by 3 mm bilaterally. Mucous membranes are moist and pink. Oropharynx without erythema NECK: Trachea is midline. There is no JVD. CHEST: Few fine crackles appreciated bilaterally anterior and posterior. Positive and extremity wheezes. CARDIOVASCULAR: Normal rate, regular rhythm. S1, S2. No S4. Without murmur ABDOMEN: Soft, nontender, nondistended. No guarding. MUSCULOSKELETAL: Pulses 2+. No peripheral edema. NEUROLOGICAL: JESUS MANUEL 5/5 on right upper and lower extremities. JESUS MANUEL 4/5 left upper extremity, 4/5 left lower extremity. sensation grossly intact. CN 2-12 grossly intact. pupils 3mm, equal, reactive, conjugate. speech improved. Questionable right-sided facial droop. A/P Assessment and Plan Neuro/Psych: Acute right parietal CVA - PRES? History of left thalamic CVA History of left DOPE HOUSE OPERATOR HELPER stent Seizure NOS Depression/anxiety Chronic headache Chronic neck pain MRI brain 02/11 revealed old left thalamic 3 mm CVA, periventricular white matter chronic ischemic changes, 8mm posterior parietal right-sided acute infarct. Left DOPE HOUSE OPERATOR HELPER stent. CTA brain 02/11 - beading in basilar artery likely atherosclerotic disease. DOPE HOUSE OPERATOR HELPER stent on left. ESR is 1 CTA neck 02/11 - mild atherosclerotic changes. No skin stenosis Loaded with fosphenytoin 1 g in ED. Level 10.2 this AM. Start 100 mg IV twice a day Currently on levetiracetam 500 mg IV twice a day EEG showed no epileptiform activity Neurology consultation Seizure precautions Currently in aspirin 325 mg by mouth daily and clopidogrel 75 mg by mouth daily 2-D echo Normal left ventricular size. Moderate concentric left ventricular hypertrophy. The left ventricular systolic function is normal with an estimated ejection fraction in the range of 60-65%. Aortic valve sclerosis is present. Holding anti-hypertensives to maintain passive hypertension for 24 hours post CVA. Restart today Resume sertraline 25 mg by mouth daily/home medication Holding hydroxyzine 25-50 mg milligrams as needed for anxiety Currently on oxycodone 5 mill grams every 4 when necessary pain 7-10 Currently on cyclobenzaprine 5 mill grams by mouth every 8 hours when necessary muscle relaxant Currently on acetaminophen 650 mg by mouth every 6 hours when necessary fever/ pain 1-6 CV: Hypertension Elevated troponin Elevated triglycerides/total cholesterol Currently nitroglycerin drip at 1.5 mics grams per minute Continue aspirin 325 mill grams daily and clopidogrel 75 mg daily 2-D echocardiogram pending. Triglycerides are 364. Cholesterol is 231. LDL 95. Initiated on atorvastatin 40 mg by mouth daily Home medications are clonidine 0.2 mg twice a day, carvedilol 6.25 mg twice a day/Toprol 100 mg daily? And lisinopril 40 mg at night Currently on carvedilol 6.25 twice a day, clonidine 0.2 mg twice a day and lisinopril 10 mg twice a day. Continue Currently holding furosemide 20 milligrams by mouth daily/home medication Cycle troponins Cardiology consultation appreciated. Recommended continue beta marcell and aspirin Resp: Acute respiratory insufficiency Tobacco abuse Currently on partial nonrebreather to maintain saturations greater than equal to 92% Incentive spirometry while awake Albuterol/ipratropium aerosols every 6 hours with albuterol aerosols every 2 hours. Dyspnea Continue Solu-Medrol 40 mill grams IV every 8 hours and budesonide/formoterol 160/4.52 puffs twice a day Chest x-ray revealed no acute findings CTPA revealed no signs of central pulmonary embolism Tobacco cessation encouraged. Booklet for patient self education at the bedside GI: Gastroesophageal reflux disease Diverticulosis Currently on clear liquid diet and advance as tolerated Currently on pantoprazole 20 mg by mouth daily. On omeprazole 20 mg by mouth daily at home Docusate sodium/senna 100 mg as 8.6 mg 1 tablet twice a day for bowel regimen : No indication for Patterson catheter Endo: Diabetes mellitus Holding Sitagliptin 10 mg by mouth daily Sliding-scale insulin with Novulin R insulin/low regimen to maintain euglycemia/ before meals at bedtime TSH 0.668 Renal: Creatinine currently within normal limits Monitor urine output Accurate I's and O's Heme: Thrombocytopenia Monitor CBC daily. Follow trends ID: Monitor for infection FEN: Replace electrolytes as clinically indicated Holding home medication potassium chloride 10 mEq daily while off furosemide MSK: PT evaluate and treat Access - Utilize peripheral IV. Central line if indicated Prophylaxis - GI - pantoprazole - DVT - SCD/heparin subcutaneous Level II follow-up Patient is stable from a critical care medicine standpoint. Assign care to hospitalist in a.m. 02/14. Transfer to floor. Buster Sauceda MD Feb 13, 2017 11:20
[2017-02-13] MEDS ORDERED: FOSPHENYTOIN INJ 500 MGPE in SODIUM CHLORIDE 0.9% INJ 50 ML IV ONE (12:00)
[2017-02-13] MEDS: CYCLOBENZAPRINE HCL 10 MG TAB PO PRN (12:31)
[2017-02-13] MEDS ORDERED: FOSPHENYTOIN SODIUM 100 MG PE/2 ML VIAL IV SCH (14:00)
[2017-02-13] MEDS ORDERED: cloNIDine HCL 0.1 MG TAB PO ONE (14:30)
[2017-02-13] MEDS ORDERED: hydrALAZINE HCL 20 MG/ML VIAL IV PUSH PRN (14:30)
[2017-02-13] MEDS: RESP: ALBUTEROL 2.5 MG/3 ML NEB (SCH) NEB ×3 (15:55→23:56)
--- NOTE | 2017-02-13 16:22 | RADRPT ---
EXAM DATE/TIME: 02/13/2017 15:44 [facility] COMPARISON: No previous studies available for comparison. INDICATIONS : Increased lab values. MEDICAL HISTORY : Stroke. Myocardial infarction. Hypercholesterolemia. Thyroid disease. COPD. Anticoagulant therapy. Dy spnea. Gastroesophageal reflux disease. Arthritis. Diabetes. Anxiety. Depression. SURGICAL HISTORY : Tonsillectomy. Hysterectomy. Lumbar back surgery. Left breast incision. Thyroid surgery. ENCOUNTER: Subsequent ACUITY: 1 day PAIN SCORE: 0/10 LOCATION: Bilateral flank MEASUREMENTS: RIGHT KIDNEY: 11.4 x 4.6 x 4.2 cm LEFT KIDNEY: 9.9 x 5.7 x 5.0 cm FINDINGS: RIGHT KIDNEY: Renal cortex is normal in thickness and echotexture. No hydronephrosis, stone, or mass. LEFT KIDNEY: Renal cortex is normal in thickness and echotexture. No hydronephrosis, stone, or mass. BLADDER: Bladder collapsed with Patterson catheter in place. CONCLUSION: Renal ultrasound within normal limits. Sam Welsh MD on February 13, 2017 at 16:19 Board Certified Radiologist. This report was verified electronically.
[2017-02-13] MEDS ORDERED: CARVEDILOL 6.25 MG TAB PO SCH ×3 (21:00)
[2017-02-13] MEDS ORDERED: LISINOPRIL 10 MG TAB PO SCH (21:00)
[2017-02-13] MEDS ORDERED: cloNIDine HCL 0.2 MG TAB PO SCH (21:00)
[2017-02-13] MEDS: LISINOPRIL 20 MG TAB PO SCH (21:36)
[2017-02-14] VITALS (13 sets, daily range): BP systolic 142–208; BP diastolic 63–98; PULSE 49–61; RESP 20; TEMP 96.9–98.5; O2SAT 92–94
[2017-02-14] MEDS: ENALAPRILAT 1.25 MG/ML VIAL IV PUSH PRN ×2 (00:50→06:29)
[2017-02-14] MEDS: CYCLOBENZAPRINE HCL 10 MG TAB PO PRN ×2 (00:52→13:18)
[2017-02-14] MEDS: NITROGLYCERIN 2% OINT 1 GM PACKET TOPICAL PRN ×2 (02:11→10:50)
[2017-02-14] MEDS ORDERED: cloNIDine HCL 0.1 MG TAB PO PRN (03:30)
[2017-02-14] MEDS: RESP: ALBUTEROL 2.5 MG/3 ML NEB (SCH) NEB ×4 (03:41→16:00)
[2017-02-14 04:54] LABS: HEMATOCRIT 38.1 % (35.0-46.0); HEMOGLOBIN 12.6 GM/DL (11.6-15.3); MEAN CELL VOLUME 90.6 FL (80.0-100.0); MEAN CORPUSCULAR HGB CONC 33.2 % (32.0-36.0); MEAN PLATELET VOLUME 11.3 FL (7.0-11.0); PLATELET COUNT 115 TH/MM3 (150-450); RED CELL DISTRIBUTION WIDTH 12.7 % (11.6-17.2); WHITE BLOOD COUNT 8.3 TH/MM3 (4.0-11.0)
[2017-02-14] MEDS: PHENYTOIN 50 MG CHEWABLE TAB PO SCH ×2 (05:13→12:27)
[2017-02-14] MEDS: HEPARIN SODIUM - SQ 10,000 UNITS/ML VIAL SQ SCH ×2 (05:13→12:28)
[2017-02-14] MEDS: methylPREDNISolone SOD SUCC 40 MG/1 ML VIAL IV PUSH SCH ×2 (05:13→12:28)
[2017-02-14] MEDS: cloNIDine HCL 0.2 MG TAB PO SCH ×2 (05:14→12:28)
[2017-02-14 05:20] LABS: BICARBONATE 25.6 MEQ/L (21.0-32.0); CALCIUM 10.2 MG/DL (8.5-10.1); CREATININE 0.79 MG/DL (0.50-1.00)
[2017-02-14 05:24] LABS: PHENYTOIN (DILANTIN) 13.6 MCG/ML (10.0-20.0); TROPONIN I 0.03 NG/ML (0.02-0.05)
--- NOTE | 2017-02-14 07:33 | HHI.PR ---
Review/Management Diagnosis/Plan: (1) Posterior reversible encephalopathy syndrome (PRES) ICD Codes: I67.83 - Posterior reversible encephalopathy syndrome Status: Acute Plan: mri brain reviewed. tiny dot size possible high rt high hemispheric infarct most significant finding is increased high signal on flair in the bilateral subcortical region suggestive of PRES severe htn + sz + mri findings + mental status changes = PRES recs neuro stable.mental status improved d/c planning once bp improved- per medical. on 4 bp meds p.t. 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 risk d/w pt cancer, stroke, mi etc.. Subjective Subjective Comments No acute events reported No headache No chest pain No dyspnea Active Medications Current Medications Medications (Trade) Dose Ordered Sig/Gregory Route Start Time Stop Time Status Last Admin Potassium Chloride 100 ml @ 50 mls/hr Q2H PRN IV 02/11/17 19:30 Potassium Chloride 100 ml @ 50 mls/hr Q2H PRN IV 02/11/17 19:30 (K-Lyte Cl Eff) 50 meq UNSCH PRN PO 02/11/17 19:30 Potassium Chloride 100 ml @ 25 mls/hr UNSCH PRN IV 02/11/17 19:30 Potassium Chloride 100 ml @ 50 mls/hr Q2H PRN IV 02/11/17 19:30 Magnesium Sulfate 4 gm/Sodium Chloride 100 ml @ 50 mls/hr UNSCH PRN IV 02/11/17 19:30 (Mag-Ox) 800 mg UNSCH PRN PO 02/11/17 19:30 Magnesium Sulfate 2 gm/Sodium Chloride 100 ml @ 50 mls/hr UNSCH PRN IV 02/11/17 19:30 (K-Phos) 2,000 mg Q4H PRN PO 02/11/17 19:30 Sodium Phosphate 30 mmol/Sodium Chloride 250 ml @ 42 mls/hr UNSCH PRN IV 02/11/17 19:30 (K-Phos) 2,000 mg UNSCH PRN PO/TUBE 02/11/17 19:30 Potassium Phosphate 30 mmol/ Sodium Chloride 260 ml @ 42 mls/hr UNSCH PRN IV 02/11/17 19:30 (D50w (Vial) Inj) 25 ml UNSCH PRN IV PUSH 02/11/17 19:30 Levetriacetam 500 mg/Sodium Chloride 105 ml @ 420 mls/hr Q12HR IV 02/12/17 09:00 02/13/17 21:36 (Tylenol) 650 mg Q6H PRN PO 02/11/17 19:30 (Zofran Inj) 4 mg Q6H PRN IV PUSH 02/11/17 19:30 (Heparin Inj) 5,000 units Q8HR SQ 02/11/17 22:00 02/14/17 05:13 Miscellaneous Information 1 Q361D XX 02/11/17 19:30 (Chlorhexidine 2% Cloth) 3 pack Taper DAILY@04 TOP 02/12/17 04:00 02/08/18 03:59 (Chlorhexidine 2% Cloth) 3 pack UNSCH PRN TOP 02/11/17 19:30 (Kenia-Colace) 1 tab BID PO 02/11/17 21:00 02/13/17 21:36 (Milk Of Magnthi Liq) 30 ml Q12H PRN PO 02/11/17 19:30 (Lipitor) 40 mg DAILY PO 02/12/17 09:00 02/13/17 08:30 (Flexeril) 5 mg Q8H PRN PO 02/12/17 01:45 02/14/17 00:52 (Plavix) 75 mg DAILY PO 02/12/17 09:00 02/13/17 08:30 (Protonix) 20 mg DAILY PO 02/12/17 09:00 02/13/17 08:29 (Zoloft) 25 mg DAILY PO 02/12/17 09:00 02/13/17 08:30 (Albuterol Neb) 2.5 mg Q2HR NEB PRN NEB 02/12/17 08:00 (NovoLIN R SUPPLEMENTAL SCALE) 1 ACHS SQ 02/12/17 08:00 02/13/17 21:00 (Roxicodone) 5 mg Q3HR WHILE AWAKE NEB PRN PO 02/12/17 08:00 02/14/17 02:11 (Aspirin Chew) 81 mg DAILY PO 02/13/17 09:00 02/13/17 09:00 (SoluMEDROL INJ) 40 mg Q8HR IV PUSH 02/12/17 14:00 02/14/17 05:13 (Symbicort 160-4.5 Mcg Inh) 2 puff Q12HR INH 02/12/17 21:00 02/13/17 21:35 (Dilantin Infatabs Chew) 150 mg Q8HR PO 02/13/17 11:00 02/14/17 05:13 (Nitroglycerin 2% Oint) 2 inch Q6HR PRN TOPICAL 02/13/17 14:15 02/14/17 02:11 (Albuterol Neb) 2.5 mg Q4HR NEB NEB 02/13/17 16:00 02/13/17 23:56 (Apresoline Inj) 20 mg Q4H PRN IV PUSH 02/13/17 14:30 (Vasotec Inj) 1.25 mg Q6H PRN IV PUSH 02/13/17 14:30 02/14/17 06:29 (Prinivil) 20 mg Q12HR PO 02/13/17 21:00 02/13/17 21:36 (Coreg) 12.5 mg Q12HR PO 02/14/17 09:00 (Catapres) 0.2 mg Q8HR PO 02/14/17 06:00 02/14/17 05:14 (Catapres) 0.1 mg Q6H PRN PO 02/14/17 03:30 02/14/17 03:31 (Norvasc) 10 mg DAILY PO 02/14/17 06:45 02/14/17 07:07 Allergies Allergies Coded Allergies grass pollen (Unverified Allergy, Severe, 10/04/16) house dust (Unverified Allergy, Severe, 10/04/16) ipratropium (Unverified Allergy, Severe, 10/04/16) aspirin (Unverified Allergy, Mild, 10/04/16) egg (Unverified Allergy, Mild, 10/04/16) codeine (Unverified Adverse Reaction, Intermediate, NAUSEA, 10/04/16) Review of Systems All other ROS: ROS reviewed as documented in chart Exam I&O / VS Vital Signs Date Time Temp Pulse Resp B/P (MAP) Pulse Ox O2 Delivery O2 Flow Rate FiO2 02/14/17 06:12 200/89 (126) 02/14/17 05:42 98.2 55 20 187/86 (119) 93 02/14/17 04:25 57 02/14/17 03:15 182/80 (114) 02/14/17 02:05 203/91 (128) 02/14/17 00:00 98.5 61 20 194/78 (116) 94 02/13/17 22:05 95 Nasal Cannula 4.00 02/13/17 20:59 93 Nasal Cannula 3.00 02/13/17 20:00 99.3 63 20 176/77 (110) 94 02/13/17 15:52 98.5 62 20 157/64 (95) 93 02/13/17 14:21 97.8 65 20 166/71 (102) 96 184/82 (116) 02/13/17 12:00 98.0 59 20 172/82 (112) 96 02/13/17 09:00 97 Nasal Cannula 4.00 02/13/17 08:00 98.4 52 16 163/72 (102) 97 02/13/17 07:40 96 Venturi Mask 50 General: Alert and Oriented, No acute distress Eye: Normal conjuctiva Respiratory: Non-labored respirations Neurologic: Alert, Oriented Psychiatric: Cooperative Exam Comments alert, ox3, pleasant, follows, eomi, vff, face sym, mild rt sided spasticity 5-/ 5, able to raise all 4 ext to gravity, no neglect Objective Micro and Labs Laboratory Tests Test 02/14/17 03:51 White Blood Count 8.3 Red Blood Count 4.20 Hemoglobin 12.6 Hematocrit 38.1 Mean Corpuscular Volume 90.6 Mean Corpuscular Hemoglobin 30.0 Mean Corpuscular Hemoglobin Concent 33.2 Red Cell Distribution Width 12.7 Platelet Count 115 Mean Platelet Volume 11.3 Blood Urea Nitrogen 23 Creatinine 0.79 Random Glucose 169 Calcium Level 10.2 Sodium Level 141 Potassium Level 4.4 Chloride Level 110 Carbon Dioxide Level 25.6 Anion Gap 5 Estimat Glomerular Filtration Rate 72 Troponin I 0.03 Phenytoin (Dilantin) Level 13.6 Ross Milligan MD Feb 14, 2017 07:33
[2017-02-14] MEDS: CLOPIDOGREL 75 MG TAB PO SCH (08:36)
[2017-02-14] MEDS: ATORVASTATIN 40 MG TAB PO SCH (08:36)
[2017-02-14] MEDS: ASPIRIN 81 MG CHEW TAB PO SCH (08:37)
[2017-02-14] MEDS: LISINOPRIL 20 MG TAB PO SCH (08:37)
[2017-02-14] MEDS: SERTRALINE HCL 50 MG TAB PO SCH (08:37)
[2017-02-14] MEDS: PANTOPRAZOLE SOD 20 MG DELAYED RELEASE TAB PO SCH (08:37)
[2017-02-14] MEDS: DOCUSATE SODIUM 50 MG/SENNA 8.6 MG TAB PO SCH (08:38)
[2017-02-14] MEDS: levETIRAcetam INJ 500 MG in SODIUM CHLORIDE 0.9% INJ 100 ML IV SCH (08:38)
[2017-02-14] MEDS: INSULIN NovoLIN REGULAR SUPPLEMENTAL SCALE SQ SCH ×3 (08:39→17:04)
[2017-02-14] MEDS: BUDESONIDE-FORMOTEROL 160/4.5 MCG INHALER INH SCH (08:46)
[2017-02-14] MEDS ORDERED: CARVEDILOL 6.25 MG TAB PO SCH (09:00)
[2017-02-14] MEDS ORDERED: TERAZOSIN HCL 1 MG CAP PO SCH (09:15)
[2017-02-14] MEDS ORDERED: SPIRONOLACTONE/HCTZ 25 MG/25 MG TAB PO SCH (09:15)
[2017-02-14] MEDS: NIFEdipine 10 MG CAP PO SCH ×2 (10:28→12:27)
--- NOTE | 2017-02-14 11:44 | HHI.PR ---
Subjective Remarks Nursing reports elevated blood pressure since last night. Patient herself denies any further nausea vomiting. Denies any further headaches. Patient herself when informed about the strong recommendation for rehabilitation placement, the patient is not agreeing at this time. She does affirm that she used to be on oxygen in the past but cannot remember the number of liters. She discontinued herself off the oxygen at her own discretion. Currently still requiring 4 L. Objective Vital Signs Date Time Temp Pulse Resp B/P (MAP) Pulse Ox O2 Delivery O2 Flow Rate FiO2 02/14/17 10:30 178/79 (112) 02/14/17 08:28 97.6 49 20 208/98 (134) 94 203/95 (131) 02/14/17 08:02 93 Nasal Cannula 4.00 02/14/17 08:00 49 02/14/17 06:12 200/89 (126) 02/14/17 05:42 98.2 55 20 187/86 (119) 93 02/14/17 04:25 57 02/14/17 03:15 182/80 (114) 02/14/17 02:05 203/91 (128) 02/14/17 00:00 98.5 61 20 194/78 (116) 94 02/13/17 22:05 95 Nasal Cannula 4.00 02/13/17 20:59 93 Nasal Cannula 3.00 02/13/17 20:00 99.3 63 20 176/77 (110) 94 02/13/17 15:52 98.5 62 20 157/64 (95) 93 02/13/17 14:21 97.8 65 20 166/71 (102) 96 184/82 (116) 02/13/17 12:00 98.0 59 20 172/82 (112) 96 I/O 02/13/17 02/13/17 02/13/17 02/14/17 02/14/17 02/14/17 07:00 15:00 23:00 07:00 15:00 23:00 Intake Total 160 ml 120 ml Output Total 200 ml 800 ml Balance -200 ml 160 ml -680 ml Intake Oral 120 ml IV Total 160 ml Output Urine Total 200 ml 800 ml # Bowel Movements 0 1 Result Diagram: 02/14/17 03502/14/17 035 Objective Remarks 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 Left AUTO CLUB SAFETY PROGRAM COORDINATOR stent. CTA brain 02/11 - beading in basilar artery likely atherosclerotic disease. AUTO CLUB SAFETY PROGRAM COORDINATOR stent on left. ESR is 1 CTA neck 02/11 - mild atherosclerotic changes. fosphenytoin 100 mg IV twice a day Currently on levetiracetam 500 mg IV twice a day EEG showed no epileptiform activity Neurology consultation Seizure precautions Currently in aspirin, plavix, and lipitor 2-D echo Normal left ventricular size. Moderate concentric left ventricular hypertrophy. The left ventricular systolic function is normal with an estimated ejection fraction in the range of 60-65%. Aortic valve sclerosis is present. Depression/anxiety Sertraline 25 mg by mouth daily/home medication Chronic headache Chronic neck pain Currently on oxycodone necessary pain 7-10 Currently on cyclobenzaprine 5 mill grams by mouth every 8 hours when necessary muscle relaxant Currently on acetaminophen 650 mg by mouth every 6 hours when necessary fever/ pain 1-6 mildly Elevated troponins Cardiology concluded no need for invasive intervention. med management - Continue beta marcell and aspirin Hypertensive urgency - new problem Elevated troponin Continue aspirin, plavix, and lipitor atorvastatin 40 mg by mouth daily clonidine 0.2 mg twice a day, coreg bid, and lisinopril - adding on nifedipine short acting, stopping norvasc given long time for onset Currently holding furosemide 20 milligrams by mouth daily/home medication Acute respiratory insufficiency - likely 2/2 COPD from smoking duonebs, solumedrol, and budesonide/formoterol Chest x-ray revealed no acute findings, afebrile CTPA neg Patient previously was on home oxygen; patient ultimately decides ongoing home will perform home oxygen walk test Gastroesophageal reflux disease Diverticulosis Currently on clear liquid diet and advance as tolerated Currently on pantoprazole 20 mg by mouth daily. Docusate sodium/senna 100 mg as 8.6 mg 1 tablet twice a day for bowel regimen Holding Sitagliptin 10 mg by mouth daily Sliding-scale insulin with Novolin R insulin/low regimen to maintain euglycemia/ before meals at bedtime TSH 0.668 Thrombocytopenia Monitor CBC daily. Follow trends Potassium chloride 10 mEq daily while off furosemide MSK: PT evaluate and treat Prophylaxis - GI - pantoprazole - DVT - SCD/heparin subcutaneous Disposition: Pending rehabilitation decision by patient as well as oxygen walk test/oxygen titration. Neo Banegas MD Feb 14, 2017 11:44
[2017-02-14] MEDS ORDERED: FUROSEMIDE 40 MG TAB PO SCH (11:45)
[2017-02-14] MEDS ORDERED: CARV6.25 PO (13:53)
[2017-02-14] MEDS ORDERED: ATOR40TA16 PO (13:53)
[2017-02-14] MEDS ORDERED: NIFE10CA PO (13:53)
[2017-02-14] MEDS ORDERED: PRED10PA2 PO (13:54)
[2017-02-14] MEDS ORDERED: Budeson-Formot 160-4.5 Mcg Inh INH (13:57)
[2017-02-14] MEDS ORDERED: DILA50CH PO (13:57)
[2017-02-14] MEDS ORDERED: Albuterol Neb NEB (13:57)
[2017-02-14] MEDS ORDERED: CYCL10TA PO (13:57)
[2017-02-14] MEDS ORDERED: LEVE500 PO (13:57)
[2017-02-14] MEDS ORDERED: OXYC-392 PO (14:00)
[2017-02-14] MEDS ORDERED: predniSONE 50 MG TAB PO SCH (15:00)
--- NOTE | 2017-02-14 15:21 | HHI.DS ---
Discharge Summary Admission Date Feb 11, 2017 at 18:09 Discharge Date: Feb 14, 2017 Admitting Diagnosis Stroke vs Focal Seizure. 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 Her last seen normal time was approximately 1300 this afternoon. The patient was noted to have left-sided weakness. EMS was called. Patient had a witnessed generalized tonic clonic seizure by EMS which lasted a few minutes per report. Prior to arrival in the emergency apart and she received 2 mg of Ativan IV. In the emergency department she received 2 more milligrams of Ativan IV. Per the ER physician, she appeared to be postictal. She was out of the window for TPA. Dr. Milligan, neurology, was consulted and ordered MRI, CTA head/neck. CTA was negative for large vessel occlusion and demonstrated patent STR[employer]NER DEVELOPMENT MANAGER stent. MRI demonstrated small area of infarction in the right parietal cortex. On my evaluation, her left sided weakness has started to improve compared to prior exams. her speech is slightly slurred, and difficult to tell if this is due to her somnolence or true dysarthria. she endorses left-sided weakness. denies numbness. denies shortness of breath, chest pain, headache, blurry vision, vision changes, or any other symptoms. She was initially on a non -rebreather mask, but this is being weaned down on my evaluation. CBC/BMP: 02/14/17 0351 02/14/17 0351 Significant Findings Laboratory Tests Test 02/11/17 16:07 02/11/17 16:45 02/11/17 21:25 02/12/17 02:03 Red Blood Count 5.63 MIL/MM3 (4.00-5.30) Hemoglobin 16.7 GM/DL (11.6-15.3) Hematocrit 51.0 % (35.0-46.0) Creatinine 1.09 MG/DL (0.50-1.00) Random Glucose 156 MG/DL (74-106) 137 MG/DL (74-106) 124 MG/DL (74-106) Calcium Level 10.9 MG/DL (8.5-10.1) Potassium Level 6.2 MEQ/L (3.5-5.1) Chloride Level 109 MEQ/L (98-107) Bedside Potassium 6.4 MMOL/L (3.5-4.9) Estimat Glomerular Filtration Rate 50 ML/MIN (>89) 64 ML/MIN (>89) 78 ML/MIN (>89) Bedside Glucose 155 MG/DL (60-95) Hemoglobin A1c 6.1 % (4.3-6.0) Troponin I LESS THAN 0.02 NG/ML 0.13 NG/ML (0.02-0.05) Triglycerides Level 364 MG/DL (42-150) Cholesterol Level 213 MG/DL (120-200) Urine Turbidity HAZY (CLEAR) Urine Specific [place] 1.038 (1.002-1.035) Urine Protein 300 mg/dL (NEG-TRACE) Urine Occult Blood TRACE (NEG) White Blood Count 11.4 TH/MM3 (4.0-11.0) Platelet Count 139 TH/MM3 (150-450) Test 02/12/17 08:20 02/12/17 14:23 02/12/17 21:17 02/13/17 04:56 Troponin I 0.06 NG/ML (0.02-0.05) 0.07 NG/ML (0.02-0.05) Platelet Count 125 TH/MM3 (150-450) Mean Platelet Volume 11.4 FL (7.0-11.0) Random Glucose 147 MG/DL (74-106) Estimat Glomerular Filtration Rate 75 ML/MIN (>89) Phenytoin (Dilantin) Level 9.1 MCG/ML (10.0-20.0) Test 02/13/17 06:40 02/14/17 03:51 Platelet Count 115 TH/MM3 (150-450) Mean Platelet Volume 11.3 FL (7.0-11.0) Blood Urea Nitrogen 23 MG/DL (7-18) Random Glucose 169 MG/DL (74-106) Calcium Level 10.2 MG/DL (8.5-10.1) Chloride Level 110 MEQ/L (98-107) Estimat Glomerular Filtration Rate 72 ML/MIN (>89) Imaging Last Impressions Renal Ultrasound 02/13/17 0000 Signed Impressions: Service Date/Time: Monday, February 13, 2017 15:44 - CONCLUSION: Renal ultrasound within normal limits. Sam Welsh MD Head CT 02/12/17 0000 Signed Impressions: Service Date/Time: Sunday, February 12, 2017 04:57 - CONCLUSION: Stable brain. No acute findings. Henry Stephens MD CT Angiography 02/12/17 0000 Signed Impressions: Service Date/Time: Sunday, February 12, 2017 09:06 - CONCLUSION: 1. Negative for central pulmonary emboli 2. Mild cardiomegaly with left ventricle hypertrophy 3. Minimal bibasilar parenchymal changes. Christoph Woodward MD FACR Neck CTA 02/11/17 1602 Signed Impressions: Service Date/Time: Saturday, February 11, 2017 16:10 - CONCLUSION: Atherosclerotic disease but no evidence of significant carotid stenosis. Sam Welsh MD Head CTA 02/11/17 1602 Signed Impressions: Service Date/Time: Saturday, February 11, 2017 16:10 - CONCLUSION: Flow diverting stent of the left [employer]NER DEVELOPMENT MANAGER in place. No aneurysm identified. Stent appears patent. Somewhat beaded appearance of the basilar artery likely representing atherosclerotic disease. Sam Welsh MD Chest X-Ray 02/11/17 0000 Signed Impressions: Service Date/Time: Saturday, February 11, 2017 16:58 - CONCLUSION: No acute cardiopulmonary disease identified. Sam Welsh MD Brain MRI 02/11/17 0000 Signed Impressions: Service Date/Time: Saturday, February 11, 2017 17:34 - CONCLUSION: 1. Small acute infarct in the right posterior parietal cortex/white matter. Adjacent more prominent area of white matter hyperintensity on the T2-weighted images likely are presenting chronic ischemic change. 2. Old left thalamic infarct. 3. Left-sided STR[employer]NER DEVELOPMENT MANAGER flow diverting stent resulting in artifact. Sam Welsh MD PE at Discharge Clear breath sounds bilaterally Unlabored breathing Nasal cannula in place Patient has trouble maintaining a good balance while standing but she is able to partially transfer herself to the edge of the bed 5/5 fistgrip strength BL Hospital Course Patient was admitted seizure-like and strokelike symptoms to the intensive care unit. Her focal seizures did resolve but she did have some mild residual left- sided weakness which did improve significantly while inpatient. Neurology was consulted and they started the patient on antiepileptics. Pt initially required high-dose oxygen supplementation and some steroids for wheezing - which showed improvement down to 4 L (which was concluded to be likely a chronic baseline requirement since the patient did have a history of being on home O2 which she discontinued herself). She was transferred to the medical floor in stable condition. Her echocardiogram was unremarkable. MRI did demonstrate a small parietal right-sided infarction along with chronic old infarction as well. Patient's BP became mildly labile towards the end of her stay which eventually stabilized with further meds. Pt has met maximal benefit from hospitalization and is clinically stable for discharge to a SNF. She will complete a prednisone taper. Pt Condition on Discharge: Stable Discharge Disposition: Discharge to SNF Discharge Time: > 30 minutes Discharge Instructions DIET: Follow Instructions for: Heart Healthy Diet Speech Therapy-Diet Recommends: Mechanical Soft Additional Diet Instructions: CHOPPED MEAT EXTRA GRAVY. NO HARD BREAD, RICE OR STRAWS. Activities you can perform: See Additionl Instruction Other Activity Instructions: NO DRIVING or operating heavy machinery AT LEAST 6 MONTHS WITH NEUROLOGY CLEARANCE Follow up Referrals: Neurology - 2 Weeks New Medications: Nifedipine (Nifedipine) 10 Mg Cap 10 MG PO TID for Chest Pain, #90 CAP 0 Refills Prednisone (48) 10 mg tab Dose Pack (Prednisone (48) 10 mg tab Dose Pack) 10 Mg Dspk 10 MG PO DIRECTED for Inflammation, #1 DSPK 0 Refills Atorvastatin (Atorvastatin) 40 Mg Tab 40 MG PO HS for stroke, #30 TAB Carvedilol (Coreg) 6.25 Mg Tab 12.5 MG PO Q12HR for Blood Pressure Management, #60 TAB Cyclobenzaprine (Flexeril) 10 Mg Tab 5 MG PO Q8H PRN for muscle cramps, #90 TAB Levetiracetam (Keppra) 500 Mg Tab 500 MG PO Q12HR for Seizure Control, #60 TAB Oxycodone (Oxycodone) 5 Mg Tab 5 MG PO Q6HR ALT NEB PRN for arthritis pain 7-10, #90 TAB Phenytoin Chew (Dilantin Infatabs) 50 Mg Chw 150 MG PO Q8HR for Seizure Control, #90 EA [Albuterol Neb] () 2.5 MG/3 ML NEBU 2.5 MG NEB Q4HR NEB PRN for SOB/WHEEZING [Budeson-Formot 160-4.5 Mcg Inh] () 60 PUFF AERO 2 PUFF INH Q12HR for chronic bronchitis, #1 INHALER Continued Medications: Aspirin DR (Aspirin Adult Low Strength) 81 Mg Tabdr 81 MG PO DAILY, TAB Clopidogrel (Plavix) 75 Mg Tab 75 MG PO DAILY for Blood Clot Prevention, #30 TAB 0 Refills Furosemide (Lasix) 20 Mg Tab 20 MG PO HS, #30 TAB 0 Refills Lisinopril (Lisinopril) 40 Mg Tab 40 MG PO HS for Blood Pressure Management, #30 TAB 0 Refills Omeprazole (Omeprazole) 20 Mg Tab 20 MG PO DAILY, #30 TAB 0 Refills Potassium Chloride ER (Potassium Chloride ER) 10 Meq Tab 10 MEQ PO DAILY for Electrolyte Replacement, #30 TAB 0 Refills Sertraline (Sertraline) 25 Mg Tab 25 MG PO DAILY, #30 TAB 0 Refills Sitagliptin (Januvia) 100 Mg Tab 100 MG PO DAILY for Blood Sugar Management, #30 TAB 0 Refills Discontinued Medications: Carvedilol (Coreg) 6.25 Mg Tab 6.25 MG PO BID, #60 TAB 0 Refills Clonidine (Clonidine) 0.2 Mg Tab 0.2 MG PO Q12HR for Blood Pressure Management, #60 TAB 0 Refills Hydroxyzine Pamoate (Hydroxyzine Pamoate) 25 Mg Cap 25-50 MG PO HS PRN for SLEEP, CAP 0 Refills Metoprolol Succinate ER 24 HR (Toprol XL) 100 Mg Tab 100 MG PO HS, #30 TAB 0 Refills Neo Banegas MD Feb 14, 2017 15:21
[2017-02-14] MEDS ORDERED: levETIRAcetam 500 MG TAB PO SCH (21:00)
[2017-02-17] MEDS ORDERED: CARV12.52 PO (10:55)
[2017-02-17] MEDS ORDERED: NITR0.4S SL (10:55)
[2017-02-17] MEDS ORDERED: DULC10SU3 RECTAL (10:55)
[2017-02-17] MEDS ORDERED: TYLE325T PO (10:55)
[2017-02-17] MEDS ORDERED: HYDR-3799 PO (10:55)
[2017-02-17] MEDS ORDERED: CLON0.2T PO (10:55)
[2017-02-17] MEDS ORDERED: FURO20TA PO (10:55)
== END 2017-02-14 17:20 | DRG 64 ==
LOC: NEPC 15:59 → NEDA 18:09 → N03B 20:20 → N05B 02-13 13:50
PROVIDERS: ADMIT Hospitalist; ATTEND Hospitalist
DX: I63.8 Other cerebral infarction (principal); I67.83 Posterior reversible encephalopathy syndrome; I67.1 Cerebral aneurysm, nonruptured; D69.6 Thrombocytopenia, unspecified; E87.1 Hypo-osmolality and hyponatremia; G81.94 Hemiplegia, unspecified affecting left nondominant side; R56.9 Unspecified convulsions; I16.1 Hypertensive emergency; E87.5 Hyperkalemia; R47.1 Dysarthria and anarthria; M54.2 Cervicalgia; R74.8 Abnormal levels of other serum enzymes; E78.1 Pure hyperglyceridemia; R06.00 Dyspnea, unspecified; I35.8 Other nonrheumatic aortic valve disorders; K21.9 Gastro-esophageal reflux disease without esophagitis; J44.9 Chronic obstructive pulmonary disease, unspecified; K57.90 Diverticulosis of intestine, part unspecified, without perforation or abscess without bleeding; E11.9 Type 2 diabetes mellitus without complications; I25.2 Old myocardial infarction; M19.90 Unspecified osteoarthritis, unspecified site; F17.210 Nicotine dependence, cigarettes, uncomplicated; F32.9 Major depressive disorder, single episode, unspecified; R06.89 Other abnormalities of breathing; I10 Essential (primary) hypertension; F41.9 Anxiety disorder, unspecified; Z79.02 Long term (current) use of antithrombotics/antiplatelets; Z79.82 Long term (current) use of aspirin; Z79.84 Long term (current) use of oral hypoglycemic drugs; Z86.73 Personal history of transient ischemic attack (TIA), and cerebral infarction without residual deficits; Z88.5 Allergy status to narcotic agent; Z88.6 Allergy status to analgesic agent; Z91.012 Allergy to eggs
CPT/HCPCS: 51702; 70450; 70496; 70498; 70551; 71010; 71275; 76775; 80048; 80061; 80185; 80307; 81001; 82140; 82435; 82550; 82552; 82565; 82570; 82607; 82947; 82948; 83036; 84132; 84295; 84300; 84443; 84484; 84520; 84702; 85025; 85027; 85384; 85610; 85652; 85730; 86140; 86850; 86900; 86901; 87205; 87641; 93005; 93306; 94150; 94620; 94640; 94664; 94667; 94668; 95819; 96361; 96365; 96375; J1200; J1644; J1953; J2060; J2405; J2920; J7030; J7050; J7512; J7613; Q2009; Q9967

== ENCOUNTER 2017-02-17 09:22 | Emergency (ER) | payer OTHER, MEDICAID ==
[~2017-02-17] VITALS: Ht 175.3 cm; Wt 85.0 kg
[~2017-02-17 09:22] MED LIST changes: -AMLO10 PO; +ASPI81TA16 PO; +ATOR40TA16 PO; +Albuterol Neb NEB; +Budeson-Formot 160-4.5 Mcg Inh INH; +CYCL10TA PO; +DILA50CH PO; -DONE1TAB63 PO; -HYDR50TA15 PO; +LEVE500 PO; -LIPI40TA PO; -LISI-515 PO; +LISI40TA PO; -LOSA25TA PO; -METR-1 PO; +NIFE10CA PO; +OMEP20TA93 PO; +OXYC-392 PO; +PRED10PA2 PO; -PRIL20CA9 PO
[2017-02-17 09:25] VITALS: BP 247/108; PULSE 52; RESP 18; TEMP 98.4; O2SAT 95
--- NOTE | 2017-02-17 10:28 | PD ---
HPI Chief Complaint: Fall Time Seen by Provider: 10:25 Travel History International Travel<30 days: No Contact w/Intl Traveler<30days: No Traveled to known affect area: No History of Present Illness HPI 71-year-old female came to the emergency room brought by EMS from [facility] after she fell. Patient says she remembers falling and did not lose consciousness. She thinks that her muscles just gave way from weakness. She has never had this before. She didn't hit her head when she fell. Currently her head hurts. She was sent in to be checked out. Patient is not on any blood thinners. She is awake and answering questions appropriately. Upon arrival patient was quite hypertensive. It's unknown whether patient was given her morning hypertension medications or not. [facility] Past Medical History Narrative Medical List of her past medical, surgical, social and family history is reviewed from the nursing note. Hx Anticoagulant Therapy: Yes Arthritis: Yes Asthma: Yes Blood Disorders: No Anxiety: Yes Depression: Yes Heart Rhythm Problems: No Cancer: No Cardiovascular Problems: Yes (HTN ) High Cholesterol: Yes Chemotherapy: No Chest Pain: No Congestive Heart Failure: No COPD: Yes Cerebrovascular Accident: Yes Diabetes: Yes Patient Takes Glucophage: Yes (SIGTAGLIPTIN ) Diminished Hearing: No Endocrine: Yes Gastrointestinal Disorders: Yes (DIVERTICULOSIS) GERD: Yes Genitourinary: Yes Headaches: Yes Hepatitis: No Hiatal Hernia: No Hypertension: Yes Immune Disorder: No Implanted Vascular Access Dvce: No Musculoskeletal: Yes Neurologic: No Psychiatric: Yes Reproductive: No Respiratory: Yes Integumentary: Yes (L breast incision - healed with some scab) Immunizations Current: Yes Migraines: No Myocardial Infarction: Yes Radiation Therapy: No Seizures: No Sleep Apnea: No Thyroid Disease: Yes Ulcer: No Menopausal: Yes : 2 Para: 2 Past Surgical History AICD: No Appendectomy: No Arteriovenous Shunt: No Cholecystectomy: No Endocrine Surgery: Yes (THYROID SX) Gynecologic Surgery: Yes (hysterectomy) Hysterectomy: Yes Insulin Pump: No Joint Replacement: No Neurologic Surgery: Yes (repair of brain aneurysm. stent placed) Pacemaker: No Thoracic Surgery: Yes (back surgery) Tonsillectomy: Yes Other Surgery: Yes Social History Alcohol Use: No Tobacco Use: Yes (PACK A DAY ) Substance Use: No Allergies-Medications (Allergen,Severity, Reaction): Coded Allergies: grass pollen (Unverified Allergy, Severe, 02/17/17) house dust (Unverified Allergy, Severe, 02/17/17) ipratropium (Unverified Allergy, Severe, 02/17/17) egg (Unverified Allergy, Mild, 02/17/17) codeine (Unverified Adverse Reaction, Intermediate, NAUSEA, 02/17/17) Comments List of her allergies reviewed from the nursing note. Reported Meds & Prescriptions Reported Meds & Active Scripts Active Macrobid (Nitrofurantoin Monoh/Nitrofur Macro) 100 Mg Cap 100 Mg PO BID 10 Days Oxycodone (Oxycodone HCl) 5 Mg Tab 5 Mg PO Q6HR ALT NEB PRN Dilantin Infatabs (Phenytoin) 50 Mg Chw 150 Mg PO Q8HR [Budeson-Formot 160-4.5 Mcg Inh] 60 PUFF Aero 2 Puff INH Q12HR Keppra (Levetiracetam) 500 Mg Tab 500 Mg PO Q12HR Flexeril (Cyclobenzaprine HCl) 10 Mg Tab 5 Mg PO Q8H PRN [Albuterol Neb] 2.5 MG/3 ML Nebu 2.5 Mg NEB Q4HR NEB PRN Prednisone (48) 10 mg tab Dose Pack (Prednisone) 10 Mg Dspk 10 Mg PO DIRECTED Nifedipine 10 Mg Cap 10 Mg PO TID Atorvastatin (Atorvastatin Calcium) 40 Mg Tab 40 Mg PO HS Potassium Chloride ER (Potassium Chloride) 10 Meq Tab 10 Meq PO DAILY Reported Tylenol (Acetaminophen) 325 Mg Tab 650 Mg PO Q4H PRN Tylenol (Acetaminophen) 325 Mg Tab 325 Mg PO Q4H PRN Dulcolax Supp (Bisacodyl) 10 Mg Supp 10 Mg RECTAL PRN Clonidine (Clonidine HCl) 0.2 Mg Tab 0.2 Mg PO ONCE Clonidine (Clonidine HCl) 0.1 Mg Tab 0.1 Mg PO Q8HR PRN Hydralazine HCl 25 Mg Tablet 10 Mg PO TID Nitrostat SL (Nitroglycerin) 0.4 Mg Subl 0.4 Mg SL DIRECTED PRN 1 tablet under the tongue as needed for chest pain. Repeat every 5 minutes for a total of 3 DOSES or call 911 if NO relief. Carvedilol 12.5 Mg Tab 12.5 Mg PO BID Furosemide 20 Mg Tab 20 Mg PO DAILY Omeprazole 20 Mg Tab 20 Mg PO DAILY Aspirin Adult Low Strength (Aspirin) 81 Mg Tabdr 81 Mg PO DAILY Lisinopril 40 Mg Tab 40 Mg PO HS Sertraline (Sertraline HCl) 25 Mg Tab 25 Mg PO DAILY Januvia (Sitagliptin Phosphate) 100 Mg Tab 100 Mg PO DAILY Plavix (Clopidogrel Bisulfate) 75 Mg Tab 75 Mg PO DAILY Narrative Medication List of her home medications reviewed from the nursing note. Review of Systems Except as stated in HPI: all other systems reviewed are Neg Neurologic: Positive: Headache Physical Exam Narrative GENERAL: Awake, alert, elderly, looks older than her age, disheveled SKIN: Focused skin assessment warm/dry. HEAD: Atraumatic. Normocephalic. EYES: Pupils equal and round. No scleral icterus. No injection or drainage. ENT: No nasal bleeding or discharge. Mucous membranes pink and moist. NECK: Trachea midline. No JVD. CARDIOVASCULAR: Regular rate and rhythm. No murmur appreciated. RESPIRATORY: No accessory muscle use. Clear to auscultation. Breath sounds equal bilaterally. GASTROINTESTINAL: Abdomen soft, non-tender, nondistended. Hepatic and splenic margins not palpable. MUSCULOSKELETAL: No obvious deformities. No clubbing. No cyanosis. No edema. NEUROLOGICAL: Awake and alert. No obvious cranial nerve deficits. Motor grossly within normal limits. Normal speech. PSYCHIATRIC: Appropriate mood and affect; insight and judgment normal. Data Data Last Documented VS Vital Signs Date Time Temp Pulse Resp B/P (MAP) Pulse Ox O2 Delivery O2 Flow Rate FiO2 02/17/17 13:31 20 96 Room Air 02/17/17 13:30 62 02/17/17 09:25 98.4 Orders Orders Complete Blood Count With Diff (02/17/17 10:31) Basic Metabolic Panel (Bmp) (02/17/17 10:31) Urinalysis - C+S If Indicated (02/17/17 10:31) Ct Brain W/O Iv Contrast(Rout) (02/17/17 10:31) Ecg Monitoring (02/17/17 10:31) Iv Access Insert/Monitor (02/17/17 10:31) Oximetry (02/17/17 10:31) Sodium Chloride 0.9% Flush (Ns Flush) (02/17/17 10:45) Acetaminophen (Tylenol) (02/17/17 10:45) Phenytoin (Dilantin) (02/17/17 10:34) Urine Culture (02/17/17 10:50) Nitrofurantoin Monohyd Macrocr (Macrobid (02/17/17 12:45) Clonidine (Catapres) (02/17/17 13:00) Carvedilol (Coreg) (02/17/17 13:00) Hydralazine (Apresoline) (02/17/17 13:00) Ed Discharge Order (02/17/17 12:54) Labs Laboratory Tests Test 02/17/17 10:35 02/17/17 10:50 White Blood Count 9.2 TH/MM3 Red Blood Count 4.76 MIL/MM3 Hemoglobin 14.1 GM/DL Hematocrit 42.9 % Mean Corpuscular Volume 90.2 FL Mean Corpuscular Hemoglobin 29.7 PG Mean Corpuscular Hemoglobin Concent 32.9 % Red Cell Distribution Width 12.9 % Platelet Count 125 TH/MM3 Mean Platelet Volume 11.0 FL Neutrophils (%) (Auto) 46.6 % Lymphocytes (%) (Auto) 43.1 % Monocytes (%) (Auto) 8.4 % Eosinophils (%) (Auto) 1.7 % Basophils (%) (Auto) 0.2 % Neutrophils # (Auto) 4.3 TH/MM3 Lymphocytes # (Auto) 4.0 TH/MM3 Monocytes # (Auto) 0.8 TH/MM3 Eosinophils # (Auto) 0.2 TH/MM3 Basophils # (Auto) 0.0 TH/MM3 CBC Comment DIFF FINAL Differential Comment Blood Urea Nitrogen 23 MG/DL Creatinine 0.86 MG/DL Random Glucose 103 MG/DL Calcium Level 10.2 MG/DL Sodium Level 142 MEQ/L Potassium Level 4.2 MEQ/L Chloride Level 105 MEQ/L Carbon Dioxide Level 31.1 MEQ/L Anion Gap 6 MEQ/L Estimat Glomerular Filtration Rate 65 ML/MIN Phenytoin (Dilantin) Level 15.5 MCG/ML Urine Color YELLOW Urine Turbidity HAZY Urine pH 6.0 Urine Specific [place] 1.015 Urine Protein NEG mg/dL Urine Glucose (UA) NEG mg/dL Urine Ketones NEG mg/dL Urine Occult Blood NEG Urine Nitrite NEG Urine Bilirubin NEG Urine Urobilinogen LESS THAN 2.0 MG/DL Urine Leukocyte Esterase MOD Urine RBC LESS THAN 1 /hpf Urine WBC 3 /hpf Urine Squamous Epithelial Cells 23 /hpf Urine Bacteria MOD /hpf Urine Mucus FEW /lpf Microscopic Urinalysis Comment CATH-CULTURE IND MDM Medical Decision Making Medical Screen Exam Complete: Yes Emergency Medical Condition: Yes Medical Record Reviewed: Yes Differential Diagnosis Intracranial bleed, essential hypertension, hypertensive crisis, fall Narrative Course 12:34 PM blood test results are back. Patient has a UTI based on the UA. I'll give her dose of Macrobid. She was given Tylenol for her headache. Head CT is negative for any acute changes. 12:52 PM her blood pressure continues to be high. I was just informed by the nurse that patient had not received any of her medications this morning at the [facility]. I have ordered her morning medications at this point. She will be discharged when the blood pressure is appropriately down. Procedures EKG Prior to Arrival: No Diagnosis Primary Impression: Fall Qualified Codes: W19.XXXA - Unspecified fall, initial encounter Additional Impressions: Generalized weakness UTI (urinary tract infection) Qualified Codes: N39.0 - Urinary tract infection, site not specified Referrals: Primary Care Physician Additional Instructions: Please return to the ER if condition worsens or any other new concerns. Continue with her blood pressure management since patient was not quite hypertensive upon arrival to the ER. Give the antibiotic as per the prescription direction. Follow-up with primary care in couple days. Med/Other Pt SpecificInfo: Prescription(s) given Scripts Nitrofurantoin Monohydrate Macrocrystals (Macrobid) 100 Mg Cap 100 MG PO BID for Infection for 10 Days, #20 CAP 0 Refills Prov: Tesfaye Mireles MD 02/17/17 Disposition: 01 DISCHARGE HOME Condition: Stable Tesfaye Mireles MD Feb 17, 2017 10:28
[2017-02-17] MEDS ORDERED: ACETAMINOPHEN 325 MG TAB PO ONE (10:45)
[2017-02-17] MEDS ORDERED: SODIUM CHLORIDE 0.9% FLUSH 10 ML FLUSH IVF PRN (10:45)
[2017-02-17] MEDS ORDERED: CLON0.2T PO ×2 (10:55)
[2017-02-17] MEDS ORDERED: HYDR-3799 PO ×2 (10:55)
[2017-02-17] MEDS ORDERED: CLON0.1T PO (10:55)
[2017-02-17] MEDS ORDERED: CARV12.52 PO ×2 (10:55)
[2017-02-17] MEDS ORDERED: TYLE325T PO ×2 (10:55)
[2017-02-17] MEDS ORDERED: DULC10SU3 RECTAL ×2 (10:55)
[2017-02-17] MEDS ORDERED: NITR0.4S SL ×2 (10:55)
[2017-02-17] MEDS ORDERED: FURO20TA PO ×2 (10:55)
--- NOTE | 2017-02-17 11:05 | RADRPT ---
EXAM DATE/TIME: 02/17/2017 10:51 [place] COMPARISON: CT BRAIN W/O CONTRAST, February 12, 2017, 4:57. INDICATIONS : Fall, hit forehead on floor. RADIATION DOSE: 33.09 CTDIvol (mGy) MEDICAL HISTORY : Stroke. Cardiovascular disease Hypertension. SURGICAL HISTORY : Shunt. ENCOUNTER: Initial ACUITY: 1 day PAIN SCALE: 3/10 LOCATION: Bilateral frontal TECHNIQUE: Multiple contiguous axial images were obtained of the head. Using automated exposure control and adj ustment of the mA and/or kV according to patient size, radiation dose was kept as low as reasonably a chievable to obtain optimal diagnostic quality images. DICOM format image data is available electro nically for review and comparison. FINDINGS: CEREBRUM: Redemonstration of a flow diverting stent in the left posterior cerebral artery. Stable encephalomala cic defect in the left thalamus. Mild diffuse stable volume loss. Multiple moderate periventricular w travis matter hypodensities. The ventricles are normal for degree of atrophy. No evidence of midline s hift, mass lesion, hemorrhage or acute infarction. No extra-axial fluid collections are seen. POSTERIOR FOSSA: The cerebellum and brainstem are intact. The 4th ventricle is midline. The cerebellopontine angle i s unremarkable. EXTRACRANIAL: The visualized portion of the orbits is intact. SKULL: The calvaria is intact. No evidence of skull fracture. CONCLUSION: 1. Left posterior cerebral artery flow diverting stent in place. 2. Senescent changes with [id number] small vessel ischemic periventricular white matter [place]. 3. Stable left thalamic infarct. 4. No acute abnormality or significant interval change. Anthony Waters MD on February 17, 2017 at 11:00 Board Certified Radiologist. This report was verified electronically.
[2017-02-17 11:11] LABS: AUTOMATED NEUTROPHIL # 4.3 TH/MM3 (1.8-7.7); BASOPHIL % 0.2 % (0.0-2.0); EOSINOPHIL # 0.2 TH/MM3 (0-0.4); EOSINOPHIL % 1.7 % (0.0-4.0); HEMATOCRIT 42.9 % (35.0-46.0); HEMOGLOBIN 14.1 GM/DL (11.6-15.3); LYMPH % 43.1 % (9.0-44.0); MEAN CELL VOLUME 90.2 FL (80.0-100.0); MEAN CORPUSCULAR HEMOGLOBIN 29.7 PG (27.0-34.0); MEAN CORPUSCULAR HGB CONC 32.9 % (32.0-36.0); MONO % 8.4 % (0.0-8.0); MONOCYTE # 0.8 TH/MM3 (0-0.9); NEUT % 46.6 % (16.0-70.0); PLATELET COUNT 125 TH/MM3 (150-450); RED BLOOD COUNT 4.76 MIL/MM3 (4.00-5.30); RED CELL DISTRIBUTION WIDTH 12.9 % (11.6-17.2); WHITE BLOOD COUNT 9.2 TH/MM3 (4.0-11.0)
[2017-02-17 11:13] LABS: BACTERIA, URINE MOD /hpf; BILIRUBIN, URINE NEG (NEG); BLOOD, URINE NEG (NEG); GLUCOSE,URINE NEG (NEG); KETONE, URINE NEG (NEG); MUCUS URINE FEW /lpf (OCC); NITRITE,URINE NEG (NEG); SQUAMOUS EPITHELIAL CELL URINE 23 /hpf (0-5); URINE COLOR YELLOW (YELLW/STRAW); URINE LEUKOCYTE ESTERASE MOD (NEG)
[2017-02-17 11:24] LABS: BICARBONATE 31.1 MEQ/L (21.0-32.0); CALCIUM 10.2 MG/DL (8.5-10.1); CREATININE 0.86 MG/DL (0.50-1.00)
[2017-02-17] MEDS ORDERED: NITROFURANTOIN MONOHYD MACROCR 100 MG CAP PO ONE (12:45)
[2017-02-17] MEDS ORDERED: MACR100C2 PO (12:53)
[2017-02-17] MEDS ORDERED: cloNIDine HCL 0.2 MG TAB PO ONE (13:00)
[2017-02-17] MEDS ORDERED: CARVEDILOL 12.5 MG TAB PO ONE (13:00)
[2017-02-17] MEDS ORDERED: hydrALAZINE HCL 25 MG TAB PO ONE (13:00)
[2017-02-17 13:30] VITALS: BP 190/104; PULSE 62; O2SAT 95
[2017-02-17 13:31] VITALS: RESP 20; O2SAT 96
== END 2017-02-17 13:32 | disposition home or self-care (01) ==
LOC: NEPE 09:22
DX: R53.1 Weakness (principal); N39.0 Urinary tract infection, site not specified; J44.9 Chronic obstructive pulmonary disease, unspecified; I10 Essential (primary) hypertension; E78.00 Pure hypercholesterolemia, unspecified; J45.909 Unspecified asthma, uncomplicated; E11.9 Type 2 diabetes mellitus without complications; W19.XXXA Unspecified fall, initial encounter; Y92.129 Unspecified place in nursing home as the place of occurrence of the external cause; F32.9 Major depressive disorder, single episode, unspecified; I25.2 Old myocardial infarction; F17.210 Nicotine dependence, cigarettes, uncomplicated; Z86.73 Personal history of transient ischemic attack (TIA), and cerebral infarction without residual deficits; Z90.710 Acquired absence of both cervix and uterus; Z88.5 Allergy status to narcotic agent; Z91.012 Allergy to eggs; Z88.8 Allergy status to other drugs, medicaments and biological substances; Z91.048 Other nonmedicinal substance allergy status; Z79.84 Long term (current) use of oral hypoglycemic drugs; Z79.82 Long term (current) use of aspirin; Z79.899 Other long term (current) drug therapy
CPT/HCPCS: 70450; 80048; 80185; 81001; 85025; 87086; 99284

== ENCOUNTER 2017-02-19 19:01 | Inpatient (IN) | payer OTHER, MEDICARE ==
[~2017-02-19] VITALS: Ht 175.3 cm; Wt 86.9 kg
[2017-02-19] VITALS (7 sets, daily range): BP systolic 137–250; BP diastolic 65–119; PULSE 77–90; RESP 17–26; TEMP 98.4–98.6; O2SAT 89–91
[~2017-02-19 19:01] MED LIST changes: +CARV12.52 PO; +CLON0.1T PO; +CLON0.2T PO; +DULC10SU3 RECTAL; +FURO20TA PO; +HYDR-3799 PO; +MACR100C2 PO; +NITR0.4S SL; +TYLE325T PO
[2017-02-19] MEDS ORDERED: MORPHINE SULFATE 2 MG/ML INJ IV PUSH ONE ×2 (19:30→20:15)
[2017-02-19] MEDS ORDERED: ONDANSETRON HCL 4 MG/2 ML VIAL IV PUSH ONE (19:30)
[2017-02-19] MEDS ORDERED: hydrALAZINE HCL 20 MG/ML VIAL IV PUSH ONE ×2 (19:30→21:30)
[2017-02-19] MEDS ORDERED: cloNIDine HCL 0.2 MG TAB PO ONE (19:30)
--- NOTE | 2017-02-19 19:30 | PD ---
Physical Exam Narrative General: The patient is a well-developed well-nourished female who is uncomfortable appearing on arrival reporting having central abdominal pain. She reports that it began 30 minutes prior to arrival. She denies having any nausea, vomiting, or diarrhea. She reports that she last moved her bowels yesterday. She reports that her stool was slightly harder than usual. Head and Neck exam: Head is normocephalic atraumatic. Eyes: EOMI, pupils are equal round and reactive to light. Nose: Midline septum with pink mucous membranes Mouth: Dentition unremarkable. Moist mucus membranes. Posterior oropharynx is not erythematous. No tonsillar hypertrophy. Uvula midline. Airway patent. Neck: No palpable lymphadenopathy. No nuchal rigidity. No thyromegaly. Cardiovascular: Regular rate and rhythm with a 1/6 systolic murmur, no gallops or rubs. Lungs: Clear to auscultation bilaterally. No wheezes, rhonchi, or rales. Abdomen: Soft, with tenderness on palpation in the midepigastric area and bilateral upper quadrants of the abdomen, however most prominent in the midepigastric area and area just above the umbilicus. The patient has mild distention related to central obesity. No palpable masses. Normal bowel sounds are audible. No tenderness on palpation of McBurney's point. Negative Matthew's sign. Extremities: No clubbing, cyanosis, or edema. 2+ pulses in all 4 extremities. No calf tenderness on palpation. Back: No costovertebral angle tenderness to palpation. Neurologic Exam: Grossly nonfocal. Skin Exam: No rash noted. Intact skin that is warm and dry. Data Data Last Documented VS Vital Signs Date Time Temp Pulse Resp B/P (MAP) Pulse Ox O2 Delivery O2 Flow Rate FiO2 02/19/17 20:15 82 220/119 (152) 02/19/17 19:13 22 91 Room Air 02/19/17 19:08 98.6 Orders Orders Electrocardiogram (02/19/17 19:15) Complete Blood Count With Diff (02/19/17 19:15) Comprehensive Metabolic Panel (02/19/17 19:15) Ckmb (Isoenzyme) Profile (02/19/17 19:15) Troponin I (02/19/17 19:15) Prothrombin Time / Inr (Pt) (02/19/17 19:15) Act Partial Throm Time (Ptt) (02/19/17 19:15) Lipase (02/19/17 19:15) Urinalysis - C+S If Indicated (02/19/17 19:15) Cath For Specimen (02/19/17 19:15) Chest, Single Ap (02/19/17 19:15) Ct Brain W/O Iv Contrast(Rout) (02/19/17 19:15) Ct Abd/Pel W Iv Contrast(Rout) (02/19/17 19:15) Iv Access Insert/Monitor (02/19/17 19:15) Ecg Monitoring (02/19/17 19:15) Oximetry (02/19/17 19:15) Levetiracetam (02/19/17 19:17) Clonidine (Catapres) (02/19/17 19:30) Morphine Inj (Morphine Inj) (02/19/17 19:30) Ondansetron Inj (Zofran Inj) (02/19/17 19:30) Ct Cerv Spine W/O Contrast (02/19/17 ) Hydralazine Inj (Apresoline Inj) (02/19/17 19:30) Phenytoin (Dilantin) (02/19/17 19:15) Morphine Inj (Morphine Inj) (02/19/17 20:15) Oxygen Administration (02/19/17 20:23) Iohexol 350 Inj (Omnipaque 350 Inj) (02/19/17 20:38) Hydralazine Inj (Apresoline Inj) (02/19/17 21:30) Ceftriaxone Inj (Rocephin Inj) (02/19/17 21:45) Azithromycin Inj (Zithromax Inj) (02/19/17 21:45) Labs Laboratory Tests Test 02/19/17 19:15 02/19/17 19:30 02/19/17 20:10 White Blood Count 10.1 TH/MM3 Red Blood Count 4.80 MIL/MM3 Hemoglobin 14.4 GM/DL Hematocrit 43.3 % Mean Corpuscular Volume 90.3 FL Mean Corpuscular Hemoglobin 30.0 PG Mean Corpuscular Hemoglobin Concent 33.3 % Red Cell Distribution Width 13.3 % Platelet Count 133 TH/MM3 Mean Platelet Volume 11.1 FL Neutrophils (%) (Auto) 83.0 % Lymphocytes (%) (Auto) 5.1 % Monocytes (%) (Auto) 7.7 % Eosinophils (%) (Auto) 3.8 % Basophils (%) (Auto) 0.4 % Neutrophils # (Auto) 8.4 TH/MM3 Lymphocytes # (Auto) 0.5 TH/MM3 Monocytes # (Auto) 0.8 TH/MM3 Eosinophils # (Auto) 0.4 TH/MM3 Basophils # (Auto) 0.0 TH/MM3 CBC Comment DIFF FINAL Differential Comment Prothrombin Time 9.7 SEC Prothromb Time International Ratio 1.0 RATIO Activated Partial Thromboplast Time 25.0 SEC Blood Urea Nitrogen 15 MG/DL Creatinine 1.00 MG/DL Random Glucose 154 MG/DL Total Protein 7.3 GM/DL Albumin 3.3 GM/DL Calcium Level 9.4 MG/DL Alkaline Phosphatase 88 U/L Aspartate Amino Transf (AST/SGOT) 45 U/L Alanine Aminotransferase (ALT/SGPT) 37 U/L Total Bilirubin 0.3 MG/DL Sodium Level 140 MEQ/L Potassium Level 3.8 MEQ/L Chloride Level 101 MEQ/L Carbon Dioxide Level 30.9 MEQ/L Anion Gap 8 MEQ/L Estimat Glomerular Filtration Rate 55 ML/MIN Total Creatine Kinase 49 U/L Troponin I LESS THAN 0.02 NG/ML Lipase 96 U/L Phenytoin (Dilantin) Level 15.8 MCG/ML Urine Color YELLOW Urine Turbidity CLEAR Urine pH 6.5 Urine Specific [place] 1.019 Urine Protein 30 mg/dL Urine Glucose (UA) NEG mg/dL Urine Ketones NEG mg/dL Urine Occult Blood NEG Urine Nitrite NEG Urine Bilirubin NEG Urine Urobilinogen 2.0 MG/DL Urine Leukocyte Esterase NEG Urine RBC 3 /hpf Urine WBC 1 /hpf Urine Squamous Epithelial Cells 5 /hpf Urine Bacteria RARE /hpf Urine Mucus FEW /lpf Microscopic Urinalysis Comment CULT NOT INDICATED MDM Medical Record Reviewed: Yes Supervised Visit with KRISHNA: Yes Interpretation(s) Last Impressions Chest X-Ray 02/19/171914 Signed Impressions: Service Date/Time: Sunday, February 19, 2017 19:22 - CONCLUSION: Right lung base atelectasis. Rosenda Sandoval MD Narrative Course I, Dr. Levy, have reviewed the advance practice practitioner's documentation and am in agreement, met with the patient face to face, made the diagnosis, and the medical decision making was done by me. The patient was initially evaluated by Tony, the physician client account assistant. Please see their complete history and physical. Patient had an ECG done that shows a sinus rhythm heart rate of 83, left ventricular hypertrophy consistent with voltage criteria, QRS duration is 112 ms, QTC 410 ms. T waves are inverted in aVL, V5, V6. The patient's EKG is compared to prior EKGs, last one done on February 12 in no acute change appears to be present. *My assessment and Findings: The patient presents with reports of headache and abdominal pain. The patient arrives with a systolic blood pressure 230. The patient unfortunately is a poor historian having difficulty recalling most of the details regarding her history, however after reviewing the electronic medical record the patient has a history of poorly controlled high blood pressure with recent admission to the hospital with sided weakness and focal seizure in the end of the evaluation thought to be related to hypertensive emergency. 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 The patient on my arrival to the room reports that she has abdominal pain. She denies having any headache currently. The patient reports that the abdominal pain began 30 minutes prior to arrival. She denies having any nausea, vomiting, or diarrhea associated with it. She reports that she has had some hard stool. She reports that she last moved her bowels yesterday. The patient reports that the pain is in the center of her abdomen. She reports that it is constant. She denies any alleviating or aggravating factors. During the course of the patients emergency department visit, the patients history, examination, and differential diagnosis were reviewed with the patient. The patient was placed on a cardiac technician with oximetry and frequent blood pressure monitoring. The patient had IV access obtained and blood work sent for analysis. The patient was initially provided morphine for pain, Zofran for nausea, given her usual dose of evening clonidine 0.2 mg IV, hydralazine 10 mg IV. The patient's blood pressure will be reassessed. The patients laboratory studies were reviewed and remarkable for white count of 10.1, hemoglobin 14.4, platelets 133 with 83 neutrophils, CMP is remarkable for glucose of 154, AST 45, initial set of cardiac enzymes are negative, lipase 96. PT 9.7, PTT 25, Dilantin level therapeutic at 15.8, urinalysis shows 30 protein otherwise unremarkable. Radiology studies were reviewed and remarkable for a chest x-ray that reveals an area of atelectasis of the right lung base. CT scan of the abdomen and pelvis shows infiltrate in the lung that appears to be new, otherwise no acute intra-abdominal abnormality. CT scan of the brain shows chronic small vessel ischemic changes without any evidence for acute hemorrhage or mass effect. Probable artifact simulating the appearance is spontaneously dense mass on the right side, recommended repeat noncontrast CT of the brain in 24-48 hours to reassess this mass that appears to be involving the head of the caudate on the right side. The patient continue be hypertensive and was given hydralazine 10 mg IV a second dose. On repeat assessment the patient continued to be hypertensive above 200 systolic, therefore a Cardene drip will be started. The patients results were discussed with the patient, including the plan of care. I explained that further testing and/ or monitoring is indicated based on the patients history, examination, and/ or laboratory findings. Therefore, I recommended admission for additional evaluation. The patient expressed understanding and was agreeable with this plan. The patient was admitted to the hospital in guarded condition and sent to a bed under the care of the [facility] Hospitalist service. Diagnosis Primary Impression: Hypertensive urgency Additional Impression: Pneumonia Qualified Codes: J18.9 - Pneumonia, unspecified organism Admitting Information Admitting Physician Requests: Admit Yessica Levy MD Feb 19, 2017 19:30
--- NOTE | 2017-02-19 19:45 | RADRPT ---
EXAM DATE/TIME: 02/19/2017 19:22 [facility] COMPARISON: CHEST SINGLE AP, February 11, 2017, 16:58. INDICATIONS : Head and neck pain. MEDICAL HISTORY : Stroke. Cardiovascular disease. Hypertension. SURGICAL HISTORY : Shunt ENCOUNTER: Initial ACUITY: 1 week PAIN SCORE: 0/10 LOCATION: Bilateral chest FINDINGS: Slight right lung base atelectasis is seen. Heart and mediastinum are unremarkable for technique. CONCLUSION: Right lung base atelectasis. Rosenda Sandoval MD on February 19, 2017 at 19:43 Board Certified Radiologist. This report was verified electronically.
[2017-02-19 19:51] LABS: AUTOMATED NEUTROPHIL # 8.4 TH/MM3 (1.8-7.7); BASOPHIL % 0.4 % (0.0-2.0); EOSINOPHIL # 0.4 TH/MM3 (0-0.4); EOSINOPHIL % 3.8 % (0.0-4.0); HEMATOCRIT 43.3 % (35.0-46.0); HEMOGLOBIN 14.4 GM/DL (11.6-15.3); LYMPH % 5.1 % (9.0-44.0); LYMPHOCYTE # 0.5 TH/MM3 (1.0-4.8); MEAN CELL VOLUME 90.3 FL (80.0-100.0); MEAN CORPUSCULAR HGB CONC 33.3 % (32.0-36.0); MEAN PLATELET VOLUME 11.1 FL (7.0-11.0); MONO % 7.7 % (0.0-8.0); MONOCYTE # 0.8 TH/MM3 (0-0.9); PLATELET COUNT 133 TH/MM3 (150-450); RED CELL DISTRIBUTION WIDTH 13.3 % (11.6-17.2); WHITE BLOOD COUNT 10.1 TH/MM3 (4.0-11.0)
[2017-02-19 19:59] LABS: BACTERIA, URINE RARE /hpf; BILIRUBIN, URINE NEG (NEG); BLOOD, URINE NEG (NEG); GLUCOSE,URINE NEG (NEG); KETONE, URINE NEG (NEG); MUCUS URINE FEW /lpf (OCC); NITRITE,URINE NEG (NEG); PH, URINE 6.5 (5.0-8.5); SQUAMOUS EPITHELIAL CELL URINE 5 /hpf (0-5); URINE COLOR YELLOW (YELLW/STRAW); URINE LEUKOCYTE ESTERASE NEG (NEG)
[2017-02-19 20:02] LABS: PROTHROMBIN TIME - PATIENT 9.7 SEC (9.8-11.6)
[2017-02-19 20:04] LABS: ALT (GPT) 37 U/L (10-53)
[2017-02-19 20:05] LABS: ALBUMIN 3.3 GM/DL (3.4-5.0); AST (GOT) 45 U/L (15-37); BICARBONATE 30.9 MEQ/L (21.0-32.0); BLOOD UREA NITROGEN 15 MG/DL (7-18); CALCIUM 9.4 MG/DL (8.5-10.1); CHLORIDE 101 MEQ/L (98-107); GLOMERULAR FILTRATION RATE 55 ML/MIN (>89); GLUCOSE,RANDOM 154 MG/DL (74-106); LIPASE 96 U/L (73-393); SODIUM (NA) 140 MEQ/L (136-145)
[2017-02-19 20:08] LABS: ALKALINE PHOSPHATASE 88 U/L (45-117); PHENYTOIN (DILANTIN) 15.8 MCG/ML (10.0-20.0); TOTAL BILIRUBIN ADULT 0.3 MG/DL (0.2-1.0); TOTAL PROTEIN 7.3 GM/DL (6.4-8.2); TROPONIN I LESS THAN 0.02 NG/ML (0.02-0.05)
--- NOTE | 2017-02-19 20:22 | PD ---
HPI Chief Complaint: Headache Time Seen by Provider: 19:15 Travel History International Travel<30 days: No Contact w/Intl Traveler<30days: No Traveled to known affect area: No History of Present Illness HPI 71-year-old female who presents to the ED for evaluation of abdominal pain and headache. Patient has a history of CVA and was recently admitted for a possible stroke. Patient also was found to have possible seizure. Per the time patient was evaluated and was found to have very high blood pressure. She was released to an assisted living facility and for the most but she's been doing okay for the exception that the past 2 hours been having abdominal pain. Per ambulance report she told staff that she was having abdominal pain but when ambulance showed up she actually complained to them of neck and head pain. Per patient the neck and head pain was severe. Per patient she apparently possibly fell. Patient herself is not a good historian. On my evaluation she does complain of headache but on my attending went to evaluate her 10 minutes later she complained of abdominal pain. She does have significant hypertension. Per patient she states that her pain is severe to me she stated that the head was severe but to my attending she stated that the abdominal pain was more severe. She denies any fevers chills or sweats. No bowel movement a urinary issues. She states that she fell but she cannot really tell me she fell today or 2 days ago. Per records she actually fell here 2 days ago and was seen for this. She states that she has not taking her 9 medications. She denies any other symptom at this time. No blurry vision or double vision. History is somewhat limited. She does take blood thinners. PFSH Past Medical History Hx Anticoagulant Therapy: Yes Arthritis: Yes Asthma: Yes Blood Disorders: No Anxiety: Yes Depression: Yes Heart Rhythm Problems: No Cancer: No Cardiovascular Problems: Yes (HTN ) High Cholesterol: Yes Chemotherapy: No Chest Pain: No Congestive Heart Failure: No COPD: Yes Cerebrovascular Accident: Yes Diabetes: Yes Diminished Hearing: No Endocrine: Yes Gastrointestinal Disorders: Yes (DIVERTICULOSIS) GERD: Yes Genitourinary: Yes Headaches: Yes Hepatitis: No Hiatal Hernia: No Hypertension: Yes Immune Disorder: No Implanted Vascular Access Dvce: No Musculoskeletal: Yes Neurologic: No Psychiatric: Yes Reproductive: No Respiratory: Yes Integumentary: Yes (L breast incision - healed with some scab) Immunizations Current: Yes Migraines: No Myocardial Infarction: Yes Radiation Therapy: No Seizures: No Sleep Apnea: No Thyroid Disease: Yes Ulcer: No ?: Not Menopausal: Yes : 2 Para: 2 Past Surgical History AICD: No Appendectomy: No Arteriovenous Shunt: No Cholecystectomy: No Endocrine Surgery: Yes (THYROID SX) Gynecologic Surgery: Yes (hysterectomy) Hysterectomy: Yes Insulin Pump: No Joint Replacement: No Neurologic Surgery: Yes (repair of brain aneurysm. stent placed) Pacemaker: No Thoracic Surgery: Yes (back surgery) Tonsillectomy: Yes Other Surgery: Yes Social History Alcohol Use: No Tobacco Use: Yes (PACK A DAY ) Substance Use: No Allergies-Medications (Allergen,Severity, Reaction): Coded Allergies: grass pollen (Unverified Allergy, Severe, 02/17/17) house dust (Unverified Allergy, Severe, 02/17/17) ipratropium (Unverified Allergy, Severe, 02/17/17) egg (Unverified Allergy, Mild, 02/17/17) codeine (Unverified Adverse Reaction, Intermediate, NAUSEA, 02/17/17) Reported Meds & Prescriptions Reported Meds & Active Scripts Active Macrobid (Nitrofurantoin Monoh/Nitrofur Macro) 100 Mg Cap 100 Mg PO BID 10 Days Oxycodone (Oxycodone HCl) 5 Mg Tab 5 Mg PO Q6HR ALT NEB PRN Dilantin Infatabs (Phenytoin) 50 Mg Chw 150 Mg PO Q8HR [Budeson-Formot 160-4.5 Mcg Inh] 60 PUFF Aero 2 Puff INH Q12HR Keppra (Levetiracetam) 500 Mg Tab 500 Mg PO Q12HR Flexeril (Cyclobenzaprine HCl) 10 Mg Tab 5 Mg PO Q8H PRN [Albuterol Neb] 2.5 MG/3 ML Nebu 2.5 Mg NEB Q4HR NEB PRN Prednisone (48) 10 mg tab Dose Pack (Prednisone) 10 Mg Dspk 10 Mg PO DIRECTED Nifedipine 10 Mg Cap 10 Mg PO TID Atorvastatin (Atorvastatin Calcium) 40 Mg Tab 40 Mg PO HS Potassium Chloride ER (Potassium Chloride) 10 Meq Tab 10 Meq PO DAILY Reported Tylenol (Acetaminophen) 325 Mg Tab 325 Mg PO Q4H PRN Dulcolax Supp (Bisacodyl) 10 Mg Supp 10 Mg RECTAL PRN Clonidine (Clonidine HCl) 0.2 Mg Tab 0.2 Mg PO Q6HR Clonidine (Clonidine HCl) 0.1 Mg Tab 0.1 Mg PO Q8HR PRN Hydralazine HCl 25 Mg Tablet 10 Mg PO TID Nitrostat SL (Nitroglycerin) 0.4 Mg Subl 0.4 Mg SL DIRECTED PRN 1 tablet under the tongue as needed for chest pain. Repeat every 5 minutes for a total of 3 DOSES or call 911 if NO relief. Carvedilol 12.5 Mg Tab 12.5 Mg PO BID Furosemide 20 Mg Tab 20 Mg PO DAILY Omeprazole 20 Mg Tab 20 Mg PO DAILY Aspirin Adult Low Strength (Aspirin) 81 Mg Tabdr 81 Mg PO DAILY Lisinopril 40 Mg Tab 40 Mg PO HS Sertraline (Sertraline HCl) 25 Mg Tab 25 Mg PO DAILY Januvia (Sitagliptin Phosphate) 100 Mg Tab 100 Mg PO DAILY Plavix (Clopidogrel Bisulfate) 75 Mg Tab 75 Mg PO DAILY Review of Systems Except as stated in HPI: all other systems reviewed are Neg Physical Exam Narrative GENERAL: SKIN: Warm and dry. HEAD: Atraumatic. Normocephalic. EYES: Pupils equal and round 4 mm reactive to light and accommodation. No scleral icterus. No injection or drainage. ENT: No nasal bleeding or discharge. Mucous membranes pink and moist. Tongue is midline. No uvula deviation. NECK: Trachea midline. No JVD. CARDIOVASCULAR: Regular rate and rhythm. No murmurs, S3, S4. RESPIRATORY: No accessory muscle use. Clear to auscultation. Breath sounds equal bilaterally. GASTROINTESTINAL: Abdomen soft, tender to touch in the abdomen on upper abdomen , nondistended. Hepatic and splenic margins not palpable. MUSCULOSKELETAL: Extremities without clubbing, cyanosis, or edema. No obvious deformities. Full range of motion of the upper and lower extremities bilaterally. 2+ pulses bilaterally. NEUROLOGICAL: Awake and alert. No obvious cranial nerve deficits. Motor grossly within normal limits. Five out of 5 muscle strength in the arms and legs. Normal speech. PSYCHIATRIC: Appropriate mood and affect; insight and judgment normal. Data Data Last Documented VS Vital Signs Date Time Temp Pulse Resp B/P (MAP) Pulse Ox O2 Delivery O2 Flow Rate FiO2 02/19/17 22:01 90 209/103 (138) 02/19/17 19:13 22 91 Room Air 02/19/17 19:08 98.6 Orders Orders Electrocardiogram (02/19/17 19:15) Complete Blood Count With Diff (02/19/17 19:15) Comprehensive Metabolic Panel (02/19/17 19:15) Ckmb (Isoenzyme) Profile (02/19/17 19:15) Troponin I (02/19/17 19:15) Prothrombin Time / Inr (Pt) (02/19/17 19:15) Act Partial Throm Time (Ptt) (02/19/17 19:15) Lipase (02/19/17 19:15) Urinalysis - C+S If Indicated (02/19/17 19:15) Cath For Specimen (02/19/17 19:15) Chest, Single Ap (02/19/17 19:15) Ct Brain W/O Iv Contrast(Rout) (02/19/17 19:15) Ct Abd/Pel W Iv Contrast(Rout) (02/19/17 19:15) Iv Access Insert/Monitor (02/19/17 19:15) Ecg Monitoring (02/19/17 19:15) Oximetry (02/19/17 19:15) Levetiracetam (02/19/17 19:17) Clonidine (Catapres) (02/19/17 19:30) Morphine Inj (Morphine Inj) (02/19/17 19:30) Ondansetron Inj (Zofran Inj) (02/19/17 19:30) Ct Cerv Spine W/O Contrast (02/19/17 ) Hydralazine Inj (Apresoline Inj) (02/19/17 19:30) Phenytoin (Dilantin) (02/19/17 19:15) Morphine Inj (Morphine Inj) (02/19/17 20:15) Oxygen Administration (02/19/17 20:23) Iohexol 350 Inj (Omnipaque 350 Inj) (02/19/17 20:38) Hydralazine Inj (Apresoline Inj) (02/19/17 21:30) Ceftriaxone Inj (Rocephin Inj) (02/19/17 21:45) Azithromycin Inj (Zithromax Inj) (02/19/17 21:45) Admit Order (Ed Use Only) (02/19/17 21:59) Labs Laboratory Tests Test 02/19/17 19:15 02/19/17 19:30 02/19/17 20:10 White Blood Count 10.1 TH/MM3 Red Blood Count 4.80 MIL/MM3 Hemoglobin 14.4 GM/DL Hematocrit 43.3 % Mean Corpuscular Volume 90.3 FL Mean Corpuscular Hemoglobin 30.0 PG Mean Corpuscular Hemoglobin Concent 33.3 % Red Cell Distribution Width 13.3 % Platelet Count 133 TH/MM3 Mean Platelet Volume 11.1 FL Neutrophils (%) (Auto) 83.0 % Lymphocytes (%) (Auto) 5.1 % Monocytes (%) (Auto) 7.7 % Eosinophils (%) (Auto) 3.8 % Basophils (%) (Auto) 0.4 % Neutrophils # (Auto) 8.4 TH/MM3 Lymphocytes # (Auto) 0.5 TH/MM3 Monocytes # (Auto) 0.8 TH/MM3 Eosinophils # (Auto) 0.4 TH/MM3 Basophils # (Auto) 0.0 TH/MM3 CBC Comment DIFF FINAL Differential Comment Prothrombin Time 9.7 SEC Prothromb Time International Ratio 1.0 RATIO Activated Partial Thromboplast Time 25.0 SEC Blood Urea Nitrogen 15 MG/DL Creatinine 1.00 MG/DL Random Glucose 154 MG/DL Total Protein 7.3 GM/DL Albumin 3.3 GM/DL Calcium Level 9.4 MG/DL Alkaline Phosphatase 88 U/L Aspartate Amino Transf (AST/SGOT) 45 U/L Alanine Aminotransferase (ALT/SGPT) 37 U/L Total Bilirubin 0.3 MG/DL Sodium Level 140 MEQ/L Potassium Level 3.8 MEQ/L Chloride Level 101 MEQ/L Carbon Dioxide Level 30.9 MEQ/L Anion Gap 8 MEQ/L Estimat Glomerular Filtration Rate 55 ML/MIN Total Creatine Kinase 49 U/L Troponin I LESS THAN 0.02 NG/ML Lipase 96 U/L Phenytoin (Dilantin) Level 15.8 MCG/ML Urine Color YELLOW Urine Turbidity CLEAR Urine pH 6.5 Urine Specific [place] 1.019 Urine Protein 30 mg/dL Urine Glucose (UA) NEG mg/dL Urine Ketones NEG mg/dL Urine Occult Blood NEG Urine Nitrite NEG Urine Bilirubin NEG Urine Urobilinogen 2.0 MG/DL Urine Leukocyte Esterase NEG Urine RBC 3 /hpf Urine WBC 1 /hpf Urine Squamous Epithelial Cells 5 /hpf Urine Bacteria RARE /hpf Urine Mucus FEW /lpf Microscopic Urinalysis Comment CULT NOT INDICATED MDM Medical Decision Making Medical Screen Exam Complete: Yes Emergency Medical Condition: Yes Medical Record Reviewed: Yes Interpretation(s) CBC & BMP Diagram 02/19/17 19:15 Total Protein 7.3, Albumin 3.3 L, Calcium Level 9.4, Alkaline Phosphatase 88, Aspartate Amino Transf (AST/SGOT) 45 H, Alanine Aminotransferase (ALT/SGPT) 37, Total Bilirubin 0.3 EKG shows sinus rhythm with no sign of acute ischemia or arrhythmia. Read by me and attending. troponin and CKMB negative Last Impressions Head CT 02/19/171914 Signed Impressions: Service Date/Time: Sunday, February 19, 2017 20:26 - CONCLUSION: 1. Chronic and small vessel ischemic changes without any evidence for acute hemorrhage or mass effect. 2. Probable artifact simulating the appearance of a spontaneously dense mass on the right side and follow up is suggested with repeat noncontrast chest CT in 24-48 hours. Rosenda Sandoval MD Chest X-Ray 02/19/171914 Signed Impressions: Service Date/Time: Sunday, February 19, 2017 19:22 - CONCLUSION: Right lung base atelectasis. Rosenda Sandoval MD Abdomen/Pelvis CT 02/19/171914 Signed Impressions: Service Date/Time: Sunday, February 19, 2017 20:31 - CONCLUSION: 1. Slight bibasilar atelectasis and/or infiltrate is seen and slight right middle lobe infiltrate not present on the prior CT angiogram from 01/2017. 2. Left adrenal adenoma and colonic diverticuli. Rosenda Sandoval MD Cervical Spine CT 02/19/17 0000 Signed Impressions: Service Date/Time: Sunday, February 19, 2017 20:26 - CONCLUSION: Degenerative spondylosis without any significant compromise to the thecal sac or the exiting nerve roots. Rosenda Sandoval MD Differential Diagnosis Hypertensive urgency versus hypertensive emergency versus headache versus cephalgia versus CVA versus abdominal pain versus pancreatitis versus gastritis versus diverticulitis versus infection versus normal exam Narrative Course 71-year-old female that presents to the ED for evaluation of headache and abdominal pain. Patient was properly examined and was found to have signs and symptoms of unclear etiology at this time. She is very hypertensive on exam. Systolic was 2:30 is when I was in the room. She has a history of hypertensive urgency and emergency is in the past. She complains of severe headache and she does have a history of CVA in the past. Labs and imaging were ordered. She also per the complaining of abdominal pain initially to the staff. She did not complain of abdominal pain to me but did mention this to my attending when she evaluated her. Labs and imaging were done for this as well. Patient was given IV pain medications and IV blood pressure medications as well as by mouth blood pressure medications. Labs and imaging showed possible pneumonia and unreliability to the CT which per radiologist he believes is related to artifact and likely this is what it is. Case was discussed in my attending Dr. Levy who recommends admission for further evaluation of this. Patient was symptomatic for the possible pneumonia. Case discussed with Dr. Monique who agrees to admission. Diagnosis Primary Impression: Hypertensive urgency Additional Impressions: Pneumonia Qualified Codes: J18.9 - Pneumonia, unspecified organism Abdominal pain Qualified Codes: R10.84 - Generalized abdominal pain Admitting Information Admitting Physician Requests: Admit Juan A Arenas Feb 19, 2017 20:22
--- NOTE | 2017-02-19 20:37 | RADRPT ---
EXAM DATE/TIME: 02/19/2017 20:26 [facility] COMPARISON: CT BRAIN W/O CONTRAST, February 11, 2017, 16:04. CT BRAIN W/O CONTRAST, February 17, 2017, 10:51. INDICATIONS : Head and neck pain for two days. RADIATION DOSE: 58.87 CTDIvol (mGy) MEDICAL HISTORY : Stroke. Hypertension. diabetes SURGICAL HISTORY : brain anuerysm repair ENCOUNTER: Initial ACUITY: 2 days PAIN SCALE: 7/10 LOCATION: cranial TECHNIQUE: Multiple contiguous axial images were obtained of the head. Using automated exposure control and adj ustment of the mA and/or kV according to patient size, radiation dose was kept as low as reasonably a chievable to obtain optimal diagnostic quality images. DICOM format image data is available electro nically for review and comparison. FINDINGS: There is no evidence for intracranial hemorrhage, mass effect, mass lesions, or edema. The visualize d bony structures appear intact. Moderate degree of brain atrophy is seen. Moderate periventricular white matter changes are seen nonspecific mostly consistent with chronic small vessel ischemic change s. There are no signs of acute infarction for technique. Again noted is what appears to be a stent i n the left posterior cerebral artery with cystic encephalomalacia in the left posterior thalamus not changed. There is one area approximately 1.5 cm round that is spontaneously dense adjacent to the hea d of the caudate on the right side probably artifactually created due to significant artifact on the images. CONCLUSION: 1. Chronic and small vessel ischemic changes without any evidence for acute hemorrhage or mass effect . 2. Probable artifact simulating the appearance of a spontaneously dense mass on the right side and fo llow up is suggested with repeat noncontrast chest CT in 24-48 hours. Rosenda Sandoval MD on February 19, 2017 at 20:30 Board Certified Radiologist. This report was verified electronically.
[2017-02-19] MEDS ORDERED: IOHEXOL 350 MG/ML 10 ML VIAL (for RAD DIAG) IVCONTRAST ONE (20:38)
--- NOTE | 2017-02-19 21:09 | RADRPT ---
EXAM DATE/TIME: 02/19/2017 20:26 [facility] COMPARISON: No previous studies available for comparison. INDICATIONS : Head and neck pain for two days. RADIATION DOSE: 22.25 CTDIvol (mGy) MEDICAL HISTORY : Stroke. Myocardial infarction. SURGICAL HISTORY : Hysterectomy. brain aneurysm repair ENCOUNTER: Initial ACUITY: 2 days PAIN SCALE: 7/10 LOCATION: neck TECHNIQUE: Volumetric scanning of the cervical spine was performed. Multiplanar reconstructions in the sagittal, coronal and oblique axial planes were performed. Using automated exposure control and adjustment o f the mA and/or kV according to patient size, radiation dose was kept as low as reasonably achievable to obtain optimal diagnostic quality images. DICOM format image data is available electronically f or review and comparison. FINDINGS: No definite fracture is seen for technique. C2-C3: There is no evidence for any significant compromise to the thecal sac, or the exiting nerve roots. N o appreciable thecal sac stenosis is seen. The neural foramina and lateral recess appear patent bila terally. C3-C4: Mild central disc protrusion is present without any significant compromise to the thecal sac or the e xiting nerve roots. C4-C5: Slight degenerative changes are seen within the disc space and facets. Slight bulging disc and hypert rophic changes are seen with indentation on the thecal sac and no significant compromise to the theca l sac or the exiting nerve roots. C5-C6: Moderate degenerative changes are seen within the disc space and facets. There is bulging disc and hy pertrophic change protruding into the right lateral recess without any significant compromise to the exiting nerve roots. Slight bulging disc and hypertrophic changes are seen with indentation on the th ecal sac and no significant compromise to the thecal sac or the exiting nerve roots. C6-C7: Slight degenerative changes are seen within the disc space and facets. Slight bulging disc and hypert rophic changes are seen with indentation on the thecal sac and no significant compromise to the theca l sac or the exiting nerve roots. C7-T1: There is no evidence for any significant compromise to the thecal sac, or the exiting nerve roots. N o appreciable thecal sac stenosis is seen. The neural foramina and lateral recess appear patent bila terally. CONCLUSION: Degenerative spondylosis without any significant compromise to the thecal sac or the exiting nerve ro ots. Rosenda Sandoval MD on February 19, 2017 at 21:04 Board Certified Radiologist. This report was verified electronically.
--- NOTE | 2017-02-19 21:14 | RADRPT ---
EXAM DATE/TIME: 02/19/2017 20:31 [facility] COMPARISON: CT pulmonary angiogram. CT PULMONARY ANGIOGRAM, February 12, 2017, 9:06. INDICATIONS : Abdominal pain. IV CONTRAST: 91 cc Omnipaque 350 (iohexol) IV ORAL CONTRAST: No oral contrast ingested. RADIATION DOSE: 14.14 CTDIvol (mGy) MEDICAL HISTORY : Cerebrovascular disease. Cardiovascular disease Hypertension.Diabetes SURGICAL HISTORY : Hysterectomy. ENCOUNTER: Initial ACUITY: 1 day PAIN SCALE: 6/10 LOCATION: abdomen TECHNIQUE: Volumetric scanning of the abdomen and pelvis was performed. Using automated exposure control and ad justment of the mA and/or kV according to patient size, radiation dose was kept as low as reasonably achievable to obtain optimal diagnostic quality images. DICOM format image data is available electro nically for review and comparison. FINDINGS: CT Abdomen: The liver, spleen, pancreas, kidneys, right adrenal are unremarkable. Approximate 1.7 cm left adrenal adenoma is identified. There are simple cysts in both kidneys the largest one on the rig ht measures 1.5 cm in size. Slight bibasilar atelectasis and/or infiltrate is seen. There is also sli ght scarring and/or infiltrate in right middle lobe partially nodular not present on the prior CT pul monary angiogram. There is no evidence for any appreciable pathological adenopathy, free fluid, or melba wel obstruction. Bilateral renal artery stents are identified. CT pelvis: There is no evidence for mass, abscess formation, or any significant adenopathy within the pelvis. There are scattered diverticuli mainly in the sigmoid colon without definite signs of divert iculitis. CONCLUSION: 1. Slight bibasilar atelectasis and/or infiltrate is seen and slight right middle lobe infiltrate not present on the prior CT angiogram from 01/2017. 2. Left adrenal adenoma and colonic diverticuli. Rosenda Sandoval MD on February 19, 2017 at 21:07 Board Certified Radiologist. This report was verified electronically.
[2017-02-19] MEDS ORDERED: cefTRIAXone INJ 1,000 MG in SODIUM CHLORIDE 0.9% INJ 100 ML IV ONE (21:45)
[2017-02-19] MEDS ORDERED: AZITHROMYCIN INJ 500 MG in SODIUM CHLOR 0.9% 250 ML INJ 250 ML IV ONE (21:45)
[2017-02-19] MEDS ORDERED: BISACODYL 10 MG SUPP RECTAL PRN (22:00)
[2017-02-19] MEDS ORDERED: MAGNESIUM HYDROXIDE SUSP 30 ML CUP PO PRN (22:00)
[2017-02-19] MEDS ORDERED: SENNOSIDES 8.6 MG TAB PO PRN (22:00)
[2017-02-19] MEDS ORDERED: ONDANSETRON HCL 4 MG/2 ML VIAL IVP PRN (22:00)
[2017-02-19] MEDS ORDERED: MISCELLANEOUS NURSING INFORMATION XX SCH (22:00)
[2017-02-19] MEDS ORDERED: LACTULOSE SYRUP 20 GM/30 ML CUP PO PRN (22:00)
[2017-02-19] MEDS ORDERED: ACETAMINOPHEN 325 MG TAB PO PRN (22:00)
[2017-02-19] MEDS ORDERED: MORPHINE SULFATE 2 MG/ML INJ IV PUSH PRN ×2 (22:00)
[2017-02-19] MEDS ORDERED: CHLORHEXIDINE GLUCONATE 2 % 1 PACK (2 CLOTHS) TOP PRN (22:00)
[2017-02-19] MEDS ORDERED: SODIUM CHLORIDE 0.9% FLUSH 10 ML FLUSH IV FLUSH PRN (22:00)
[2017-02-19] MEDS ORDERED: DEXTROSE 50% IN WATER 50 ML VIAL(D50) IV PUSH PRN (22:00)
[2017-02-19] MEDS ORDERED: GLUCAGON 1 MG/ML VIAL OTHER PRN (22:00)
--- NOTE | 2017-02-19 22:07 | HHI.HP ---
HPI Service [facility] Primary Care Physician Unknown Admission Diagnosis hypertensive urgency, abdominal pain, pneumonia Diagnoses: (1) Hypertensive urgency Diagnosis: Principal (2) Intractable pain Diagnosis: Principal (3) Brain mass Diagnosis: Principal (4) PNA (pneumonia) Diagnosis: Principal (5) Thrombocytopenia Diagnosis: Principal (6) DM (diabetes mellitus) Diagnosis: Principal Travel History International Travel<30 Days: No Contact w/Intl Traveler <30 Da: No Traveled to Known Affected Are: No History of Present Illness This is a 71-year-old female with a PMH of Anxiety, Depression, HTN, Hyperlipidemia, COPD, DM, Chronic Back Pain and Tobacco Abuse who is brought to the ER from [facility] secondary riley/o severe abdominal pain in addition to headache. Pt poor historian, unable to obtain adequate history, however she denies nausea , vomiting or diarrhea. Son states she takes Oxycodone 5mg as needed, however believes she hasn't gotten any from the [facility] recently. Headache is pressure-like , mostly frontal, constant, 10/10. Denies vision changes. On arrival, BP 250/ 116, HR 84, O2 sat 89% on RA, afebrile. CBC essentially unremarkable except for platelets 133, previously 125 on 1229 and 17. Chemistry essentially unremarkable. Troponin negative. INR 1.0. A negative. CXR with right lung atelectasis. CT Abd/Pelvis w/ basilar atelectasis or infiltrate and slight right middle lobe infiltrate not present on previous imaging. CT Head with chronic and small vessel ischemic changes, probable artifact however mass on right side cannot be excluded, follow-up CT recommended in 24-48 hours. S/p multiple doses of antihypertensives in the ER, BP remains >200. Review of Systems Except as stated in HPI: all other systems reviewed are Neg ROS: 14 point review of systems otherwise negative. Past Family Social History Past Medical History PMH: Anxiety, Depression, HTN, Hyperlipidemia, COPD, DM, Chronic Back Pain and Tobacco Abuse Past Surgical History PAST SURGICAL HISTORY: Thyroidectomy, Brain Aneurysm Stent Back Surgery Allergies: Coded Allergies: grass pollen (Unverified Allergy, Severe, 02/17/17) house dust (Unverified Allergy, Severe, 02/17/17) ipratropium (Unverified Allergy, Severe, 02/17/17) egg (Unverified Allergy, Mild, 02/17/17) codeine (Unverified Adverse Reaction, Intermediate, NAUSEA, 02/17/17) Family History PAST FAMILY HISTORY: Reviewed. No h/o DM or CAD Social History PAST SOCIAL HISTORY: Negative for alcohol or drugs. Smokes 1 pack per day. Physical Exam Vital Signs Vital Signs Date Time Temp Pulse Resp B/P (MAP) Pulse Ox O2 Delivery O2 Flow Rate FiO2 02/19/17 22:01 90 209/103 (138) 02/19/17 20:15 82 220/119 (152) 02/19/17 19:13 83 22 237/107 (150) 91 Room Air 02/19/17 19:12 84 22 232/105 (147) 02/19/17 19:08 98.6 84 26 250/116 (160) 89 Physical Exam PE: GENERAL: Only white female in moderate distress secondary to complaints of abdominal pain and headache. Son at bedside. HEENT: PERRLA, EOMI. No scleral icterus or conjunctival pallor. No lid lag or facial droop. CARDIOVASCULAR: Regular rate and rhythm. No obvious murmurs to auscultation. No chest tenderness to palpation. RESPIRATORY: No obvious rhonchi or wheezing. Clear to auscultation. Breath sounds equal bilaterally. GASTROINTESTINAL: Abdomen soft, non-tender, nondistended. BS normal. MUSCULOSKELETAL: Extremities without clubbing, cyanosis, or edema. No obvious deformities. NEUROLOGICAL: Awake, alert and oriented x4. No focal neurologic deficits. Moving both upper and lower extremities spontaneously. Laboratory Laboratory Tests Test 02/19/17 19:15 02/19/17 19:30 02/19/17 20:10 White Blood Count 10.1 Red Blood Count 4.80 Hemoglobin 14.4 Hematocrit 43.3 Mean Corpuscular Volume 90.3 Mean Corpuscular Hemoglobin 30.0 Mean Corpuscular Hemoglobin Concent 33.3 Red Cell Distribution Width 13.3 Platelet Count 133 Mean Platelet Volume 11.1 Neutrophils (%) (Auto) 83.0 Lymphocytes (%) (Auto) 5.1 Monocytes (%) (Auto) 7.7 Eosinophils (%) (Auto) 3.8 Basophils (%) (Auto) 0.4 Neutrophils # (Auto) 8.4 Lymphocytes # (Auto) 0.5 Monocytes # (Auto) 0.8 Eosinophils # (Auto) 0.4 Basophils # (Auto) 0.0 CBC Comment DIFF FINAL Differential Comment Prothrombin Time 9.7 Prothromb Time International Ratio 1.0 Activated Partial Thromboplast Time 25.0 Blood Urea Nitrogen 15 Creatinine 1.00 Random Glucose 154 Total Protein 7.3 Albumin 3.3 Calcium Level 9.4 Alkaline Phosphatase 88 Aspartate Amino Transf (AST/SGOT) 45 Alanine Aminotransferase (ALT/SGPT) 37 Total Bilirubin 0.3 Sodium Level 140 Potassium Level 3.8 Chloride Level 101 Carbon Dioxide Level 30.9 Anion Gap 8 Estimat Glomerular Filtration Rate 55 Total Creatine Kinase 49 Troponin I LESS THAN 0.02 Lipase 96 Phenytoin (Dilantin) Level 15.8 Urine Color YELLOW Urine Turbidity CLEAR Urine pH 6.5 Urine Specific [place] 1.019 Urine Protein 30 Urine Glucose (UA) NEG Urine Ketones NEG Urine Occult Blood NEG Urine Nitrite NEG Urine Bilirubin NEG Urine Urobilinogen 2.0 Urine Leukocyte Esterase NEG Urine RBC 3 Urine WBC 1 Urine Squamous Epithelial Cells 5 Urine Bacteria RARE Urine Mucus FEW Microscopic Urinalysis Comment CULT NOT INDICATED Result Diagram: 02/19/17191402/19/171914 Caprini VTE Risk Assessment Caprini VTE Risk Assessment: No/Low Risk (score <= 1) Caprini Risk Assessment Model Point Value = 1 Point Value = 2 Point Value = 3 Point Value = 5 Age 41-60 Minor surgery BMI > 25 kg/m2 Swollen legs Varicose veins or History of unexplained or recurrent spontaneous Oral contraceptives or hormone replacement Sepsis (< 1 month) Serious lung disease, including pneumonia (< 1 month) Abnormal pulmonary function Acute myocardial infarction Congestive heart failure (< 1 month) History of inflammatory bowel disease Medical patient at bed rest Age 61-74 Arthroscopic surgery Major open surgery (> 45 min) Laparoscopic surgery (> 45 min) Malignancy Confined to bed (> 72 hours) Immobilizing plaster cast Central venous access Age >= 75 History of VTE Family history of VTE Factor V Leiden Prothrombin [id number] Lupus anticoagulant Anticardiolipin antibodies Elevated serum homocysteine Heparin-induced thrombocytopenia Other congenital or acquired thrombophilia Stroke (< 1 month) Elective arthroplasty Hip, pelvis, or leg fracture Acute spinal cord injury (< 1 month) Prophylaxis Regimen Total Risk Factor Score Risk Level Prophylaxis Regimen 0-1 Low Early ambulation 2 Moderate Order ONE of the following: *Sequential Compression Device (SCD) *Heparin 5000 units SQ BID 3-4 Higher Order ONE of the following medications: *Heparin 5000 units SQ TID *Enoxaparin/Lovenox 40 mg SQ daily (WT < 150 kg, CrCl > 30 mL/min) *Enoxaparin/Lovenox 30 mg SQ daily (WT < 150 kg, CrCl > 10-29 mL/min) *Enoxaparin/Lovenox 30 mg SQ BID (WT < 150 kg, CrCl > 30 mL/min) AND/OR *Sequential Compression Device (SCD) 5 or more Highest Order ONE of the following medications: *Heparin 5000 units SQ TID (Preferred with Epidurals) *Enoxaparin/Lovenox 40 mg SQ daily (WT < 150 kg, CrCl > 30 mL/min) *Enoxaparin/Lovenox 30 mg SQ daily (WT < 150 kg, CrCl > 10-29 mL/min) *Enoxaparin/Lovenox 30 mg SQ BID (WT < 150 kg, CrCl > 30 mL/min) AND *Sequential Compression Device (SCD) Assessment and Plan Problem List: (1) Hypertensive urgency ICD Code: I16.0 - Hypertensive urgency Status: Acute (2) Intractable pain ICD Code: R52 - Pain, unspecified (3) Thrombocytopenia ICD Code: D69.6 - Thrombocytopenia, unspecified (4) Brain mass ICD Code: G93.9 - Disorder of brain, unspecified (5) PNA (pneumonia) ICD Code: J18.9 - Pneumonia, unspecified organism (6) DM (diabetes mellitus) ICD Code: E11.9 - Type 2 diabetes mellitus without complications Assessment and Plan A/P: 1. Hypertensive Urgency: BP 250/116, HR 84, s/p multiple doses of PO and IV antihypertensives in ER with minimal improvement, BP remains 209/103 at this time. Will start Cardene gtt, admit to ICU for close monitoring, resume home medications, titrate Cardene to keep SBP <180. 2. Intractable Pain: Headache and abdominal pain, severe /. CT Abd/ Pelvis w/ no acute intra-abdominal findings, images reviewed by me. Analgesics/ antiemetics as needed. Pepcid IV. 3. Brain Mass: CT Head w/ possible artifact, however right mass noted, will repeat CT Head in 24hrs for further evaluation. Neuro Check 4. PNA: CT Abd/Pelvis w/ infiltrate, s/p Rocephin/Zithro in ER, will continue w/ IV Abx. 5. DM: Sliding scale w/ Accu-Cheks. Resume home Januvia 6. DVT Prophylaxis: SCD/Teds. 7. Social work for d/c planning as needed. 8. Labs/imaging/records reviewed extensively by me. Case discussed w/ ER physician at length, plan of care discussed w/ Son and pt Physician Certification 2 Midnight Certification Type: Admission for Inpatient Services Order for Inpatient Services The services are ordered in accordance with Medicare regulations or non- Medicare payer requirements, as applicable. In the case of services not specified as inpatient-only, they are appropriately provided as inpatient services in accordance with the 2-midnight benchmark. Estimated LOS (days): 2 days is the estimated time the patient will need to remain in the hospital, assuming treatment plan goals are met and no additional complications. Post-Hospital Plan: Not yet determined Sierra Monique MD Feb 19, 2017 22:07
--- NOTE | 2017-02-19 22:07 | EKG ---
Date Performed: 02/19/2017 Time Performed: 19:14:03 PTAGE: 71 years EKG: Sinus rhythm POSSIBLE LEFT ATRIAL ENLARGEMENT LEFT VENTRICULAR HYPERTROPHY AND ST-T CHANGE POSSIBLE SEPTAL MYOCAR DIAL INFARCTION ABNORMAL ECG Compared to prior electrocardiogram, Inferior myocardial infarction no l onger present. and ST segment and T wave changes are more marked PREVIOUS TRACING : 02/12/2017 04.19 DOCTOR: Angus Villeda Interpretating Date/Time 02/19/2017 22:06:42
[2017-02-19] MEDS ORDERED: PILL SPLITTER OTHER PRN (22:30)
[2017-02-19] MEDS ORDERED: FAMOTIDINE 20 MG/2 ML VIAL IV PUSH SCH (23:00)
[2017-02-19] MEDS ORDERED: niCARdipine INJ 25 MG in SODIUM CHLOR 0.9% 250 ML INJ 240 ML IV PRN (23:15)
[2017-02-19] MEDS: HYDROmorphone HCL PF 2 MG/ML VIAL IV PUSH PRN (23:26)
[2017-02-20] VITALS (16 sets, daily range): BP systolic 124–158; BP diastolic 58–95; PULSE 57–77; RESP 19–26; TEMP 98.3–98.9; O2SAT 90–97
[2017-02-20] MEDS: PHENYTOIN 50 MG CHEWABLE TAB PO SCH ×4 (01:10→21:32)
[2017-02-20] MEDS: CHLORHEXIDINE GLUCONATE 2 % 1 PACK (2 CLOTHS) TOP SCH (03:18)
[2017-02-20] MEDS: INSULIN ASPART SUPPLEMENTAL SCALE SQ SCH ×4 (08:00→21:00)
[2017-02-20] MEDS: CARVEDILOL 12.5 MG TAB PO SCH ×2 (08:05→21:31)
[2017-02-20] MEDS: DOCUSATE SODIUM 50 MG/SENNA 8.6 MG TAB PO SCH ×2 (08:05→21:30)
[2017-02-20] MEDS: FUROSEMIDE 20 MG TAB PO SCH (08:05)
[2017-02-20] MEDS: SERTRALINE HCL 50 MG TAB PO SCH (08:05)
[2017-02-20] MEDS: levETIRAcetam 500 MG TAB PO SCH ×2 (08:05→21:30)
[2017-02-20] MEDS: hydrALAZINE HCL 10 MG TAB PO SCH ×3 (08:05→18:03)
[2017-02-20] MEDS: SODIUM CHLORIDE 0.9% FLUSH 10 ML FLUSH IV FLUSH SCH ×2 (08:06→21:32)
[2017-02-20] MEDS: HYDROmorphone HCL PF 2 MG/ML VIAL IV PUSH PRN (08:06)
[2017-02-20 08:19] LABS: AUTOMATED NEUTROPHIL # 4.7 TH/MM3 (1.8-7.7); BASOPHIL % 0.5 % (0.0-2.0); EOSINOPHIL # 0.3 TH/MM3 (0-0.4); EOSINOPHIL % 4.6 % (0.0-4.0); HEMATOCRIT 42.5 % (35.0-46.0); HEMOGLOBIN 13.9 GM/DL (11.6-15.3); LYMPH % 10.7 % (9.0-44.0); LYMPHOCYTE # 0.7 TH/MM3 (1.0-4.8); MEAN CELL VOLUME 90.4 FL (80.0-100.0); MEAN CORPUSCULAR HEMOGLOBIN 29.5 PG (27.0-34.0); MEAN CORPUSCULAR HGB CONC 32.6 % (32.0-36.0); MEAN PLATELET VOLUME 11.8 FL (7.0-11.0); MONO % 11.5 % (0.0-8.0); MONOCYTE # 0.7 TH/MM3 (0-0.9); NEUT % 72.7 % (16.0-70.0); PLATELET COUNT 121 TH/MM3 (150-450); RED CELL DISTRIBUTION WIDTH 13.3 % (11.6-17.2); WHITE BLOOD COUNT 6.5 TH/MM3 (4.0-11.0)
[2017-02-20 08:48] LABS: ALBUMIN 2.9 GM/DL (3.4-5.0); ALT (GPT) 42 U/L (10-53); AST (GOT) 32 U/L (15-37); BICARBONATE 30.8 MEQ/L (21.0-32.0); BLOOD UREA NITROGEN 13 MG/DL (7-18); CHLORIDE 103 MEQ/L (98-107); CREATININE 0.65 MG/DL (0.50-1.00); GLOMERULAR FILTRATION RATE 90 ML/MIN (>89); GLUCOSE,RANDOM 113 MG/DL (74-106); SODIUM (NA) 140 MEQ/L (136-145)
--- NOTE | 2017-02-20 08:49 | HHI.PR ---
Subjective Remarks The patient was eating breakfast. She complained of abdominal pain in the upper abdominal area. She said that she believes food makes the pain worse. She denies any shortness of breath. She denies any weakness. She wants to go home. Discussed with nursing at the bedside. Objective Vitals Vital Signs Date Time Temp Pulse Resp B/P (MAP) Pulse Ox O2 Delivery O2 Flow Rate FiO2 02/20/17 06:00 65 02/20/17 04:00 98.9 63 24 158/74 (102) 97 02/20/17 04:00 63 02/20/17 02:00 77 02/20/17 00:00 77 02/19/17 23:53 70 18 145/77 (99) 100 02/19/17 23:52 75 145/77 02/19/17 23:51 98.4 77 17 137/65 (89) 90 02/19/17 23:26 79 200/101 02/19/17 22:01 90 209/103 (138) 02/19/17 20:15 82 220/119 (152) 02/19/17 19:13 83 22 237/107 (150) 91 Room Air 02/19/17 19:12 84 22 232/105 (147) 02/19/17 19:08 98.6 84 26 250/116 (160) 89 I/O 02/19/17 02/19/17 02/19/17 02/20/17 02/20/17 02/20/17 07:00 15:00 23:00 07:00 15:00 23:00 Intake Total 100 ml 250 ml Balance 100 ml 250 ml Intake IV Total 100 ml 250 ml # Voids 0 # Bowel Movements 0 Result Diagram: 02/20/17 0742 02/19/171914 Imaging Last Impressions Head CT 02/19/171914 Signed Impressions: Service Date/Time: Sunday, February 19, 2017 20:26 - CONCLUSION: 1. Chronic and small vessel ischemic changes without any evidence for acute hemorrhage or mass effect. 2. Probable artifact simulating the appearance of a spontaneously dense mass on the right side and follow up is suggested with repeat noncontrast chest CT in 24-48 hours. Rosenda Sandoval MD Chest X-Ray 02/19/171914 Signed Impressions: Service Date/Time: Sunday, February 19, 2017 19:22 - CONCLUSION: Right lung base atelectasis. Rosenda Sandoval MD Abdomen/Pelvis CT 02/19/17 1915 Signed Impressions: Service Date/Time: Sunday, February 19, 2017 20:31 - CONCLUSION: 1. Slight bibasilar atelectasis and/or infiltrate is seen and slight right middle lobe infiltrate not present on the prior CT angiogram from 01/2017. 2. Left adrenal adenoma and colonic diverticuli. Rosenda Sandoval MD Cervical Spine CT 02/19/17 0000 Signed Impressions: Service Date/Time: Sunday, February 19, 2017 20:26 - CONCLUSION: Degenerative spondylosis without any significant compromise to the thecal sac or the exiting nerve roots. Rosenda Sandoval MD Objective Remarks GENERAL: Resting comfortably in bed. HEENT: PERRLA, EOMI. No scleral icterus or conjunctival pallor. No lid lag or facial droop. CARDIOVASCULAR: Regular rate and rhythm. No obvious murmurs to auscultation. No chest tenderness to palpation. RESPIRATORY: No obvious rhonchi or wheezing. Clear to auscultation. Breath sounds equal bilaterally. GASTROINTESTINAL: Abdomen soft, non-tender, nondistended. BS normal. MUSCULOSKELETAL: Extremities without clubbing, cyanosis, or edema. No obvious deformities. NEUROLOGICAL: Awake, alert and oriented x4. No focal neurologic deficits. Moving both upper and lower extremities spontaneously. Medications and IVs Current Medications Medications (Trade) Dose Ordered Sig/Gregory Route Start Time Stop Time Status Last Admin Ceftriaxone Sodium 1000 mg/ Sodium Chloride 100 ml @ 200 mls/hr Q24H IV 02/20/17 21:00 Azithromycin 500 mg/Sodium Chloride 250 ml @ 250 mls/hr Q24H IV 02/20/17 21:00 Miscellaneous Information 1 Q361D XX 02/19/17 22:00 (Chlorhexidine 2% Cloth) 3 pack Taper DAILY@04 TOP 02/20/17 04:00 02/16/18 03:59 02/20/17 03:18 (Chlorhexidine 2% Cloth) 3 pack UNSCH PRN TOP 02/19/17 22:00 (NS Flush) 2 ml UNSCH PRN IV FLUSH 02/19/17 22:00 (NS Flush) 2 ml BID IV FLUSH 02/20/17 09:00 02/20/17 08:06 (Zofran Inj) 4 mg Q6H PRN IVP 02/19/17 22:00 (Tylenol) 650 mg Q6H PRN PO 02/19/17 22:00 (Kenia-Colace) 1 tab BID PO 02/20/17 09:00 02/20/17 08:05 (Milk Of Magnesia Liq) 30 ml Q12H PRN PO 02/19/17 22:00 (Senokot) 17.2 mg Q12H PRN PO 02/19/17 22:00 (Dulcolax Supp) 10 mg DAILY PRN RECTAL 02/19/17 22:00 (Lactulose Liq) 30 ml DAILY PRN PO 02/19/17 22:00 (D50w (Vial) Inj) 50 ml UNSCH PRN IV PUSH 02/19/17 22:00 (Glucagon Inj) 1 mg UNSCH PRN OTHER 02/19/17 22:00 (NovoLOG SUPPLEMENTAL SCALE) 1 ACHS SLIDING SCALE SQ 02/20/17 08:00 (Lipitor) 40 mg HS PO 02/20/17 21:00 (Coreg) 12.5 mg BID PO 02/20/17 09:00 02/20/17 08:05 (Flexeril) 5 mg Q8H PRN PO 02/19/17 22:00 (Lasix) 20 mg DAILY PO 02/20/17 09:00 02/20/17 08:05 (Apresoline) 10 mg TID PO 02/20/17 09:00 02/20/17 08:05 (Keppra) 500 mg Q12HR PO 02/20/17 09:00 02/20/17 08:05 (Dilantin Infatabs Chew) 150 mg Q8HR PO 02/19/17 22:00 02/20/17 06:14 (Pill Splitter) 1 ea UNSCH PRN OTHER 02/19/17 22:30 (Protonix) 20 mg DAILY PO 02/20/17 09:00 02/20/17 08:05 (Zoloft) 25 mg DAILY PO 02/20/17 09:00 02/20/17 08:05 (Pepcid Inj) 20 mg Q12H IV PUSH 02/19/17 23:00 02/20/17 01:10 (Dilaudid Pf Inj) 1 mg Q4H PRN IV PUSH 02/19/17 22:30 02/20/17 08:06 Nicardipine HCl 25 mg/Sodium Chloride 250 ml @ 50 mls/hr TITRATE PRN IV 02/19/17 23:15 02/19/17 23:26 (Ecotrin Ec) 81 mg DAILY PO 02/20/17 09:00 (Plavix) 75 mg DAILY PO 02/20/17 09:00 (Prinivil) 40 mg HS PO 02/20/17 21:00 A/P Problem List: (1) Hypertensive urgency ICD Code: I16.0 - Hypertensive urgency Status: Acute (2) Intractable pain ICD Code: R52 - Pain, unspecified (3) Thrombocytopenia ICD Code: D69.6 - Thrombocytopenia, unspecified (4) Brain mass ICD Code: G93.9 - Disorder of brain, unspecified (5) PNA (pneumonia) ICD Code: J18.9 - Pneumonia, unspecified organism (6) DM (diabetes mellitus) ICD Code: E11.9 - Type 2 diabetes mellitus without complications Assessment and Plan Hypertensive Urgency BP 250/116, HR 84, s/p multiple doses of PO and IV antihypertensives in ER with minimal improvement. Was started on Cardene gtt and admitted to ICU for close monitoring. - DC Cardene drip. - resume home meds. - Clonidine as needed. Intractable pain Headache and abdominal pain, seems improved. CT Abd/Pelvis w/ no acute intra- abdominal findings. - Analgesics/antiemetics as needed. - Continue PPI. - Maalox. - Trend LFTs. Brain mass CT Head w/ possible artifact vs right mass noted. - will repeat CT head this evening. - Neuro checks. CAP CT Abd/Pelvis w/ infiltrate, s/p Rocephin/Zithro in ER. - will continue w/ IV Abx. DM On Januvia. - Sliding scale w/ Accu-Cheks. - hold home Januvia. DVT Prophylaxis: SCD/Teds Discharge Planning Transfer to floor. Hopefully discharge home tomorrow Deonte Lara DO Feb 20, 2017 08:49
[2017-02-20 08:50] LABS: ALKALINE PHOSPHATASE 76 U/L (45-117); TOTAL BILIRUBIN ADULT 0.3 MG/DL (0.2-1.0); TOTAL PROTEIN 6.6 GM/DL (6.4-8.2)
[2017-02-20] MEDS ORDERED: NON-FORMULARY DRUG (Omeprazole 20 MG) PO SCH (09:00)
[2017-02-20] MEDS ORDERED: PANTOPRAZOLE SOD 20 MG DELAYED RELEASE TAB PO SCH (09:00)
[2017-02-20] MEDS ORDERED: NON-FORMULARY DRUG (Sertraline 25 MG) PO SCH (09:00)
[2017-02-20] MEDS ORDERED: cloNIDine HCL 0.1 MG TAB PO PRN (09:45)
[2017-02-20] MEDS ORDERED: ALUMINUM/MAGNESIUM/SIMETH 30 ML CUP PO ONE (09:45)
[2017-02-20] MEDS: ASPIRIN EC 81 MG TABEC PO SCH (09:56)
[2017-02-20] MEDS: CLOPIDOGREL 75 MG TAB PO SCH (09:56)
[2017-02-20 10:19] LABS: LIPASE 79 U/L (73-393)
[2017-02-20] MEDS: ALUMINUM/MAGNESIUM/SIMETH 30 ML CUP PO SCH ×3 (13:15→21:00)
[2017-02-20] MEDS: CYCLOBENZAPRINE HCL 10 MG TAB PO PRN (16:56)
[2017-02-20] MEDS: ACETAMINOPHEN/HYDROcodone 325 MG/5 MG TAB PO PRN ×2 (16:56→21:29)
[2017-02-20] MEDS: ATORVASTATIN 40 MG TAB PO SCH (21:31)
[2017-02-20] MEDS: LISINOPRIL 20 MG TAB PO SCH (21:32)
[2017-02-20] MEDS: AZITHROMYCIN INJ 500 MG in SODIUM CHLOR 0.9% 250 ML INJ 250 ML IV SCH (21:32)
[2017-02-20] MEDS: cefTRIAXone INJ 1,000 MG in SODIUM CHLORIDE 0.9% INJ 100 ML IV SCH (22:56)
[2017-02-21] VITALS (11 sets, daily range): BP systolic 148–218; BP diastolic 61–97; PULSE 55–62; RESP 18–20; TEMP 97.2–98.6; O2SAT 90–93
--- NOTE | 2017-02-21 00:07 | RADRPT ---
EXAM DATE/TIME: 02/20/2017 23:49 [place] COMPARISON: CT BRAIN W/O CONTRAST, February 17, 2017, 10:51. CT BRAIN W/O CONTRAST, February 19, 2017, 20:26. INDICATIONS : Follow up scan. Possible mass. RADIATION DOSE: 33.60 CTDIvol (mGy) MEDICAL HISTORY : Cerebrovascular disease. Cardiovascular disease Hypertension.Diabetes SURGICAL HISTORY : Hysterectomy. 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 Using automated exposure control and adj ustment of the mA and/or kV according to patient size, radiation dose was kept as low as reasonably a chievable to obtain optimal diagnostic quality images. DICOM format image data is available electro nically for review and comparison. FINDINGS: CEREBRUM: A stent is seen involving left posterior cerebral artery. Prior infarction involving the left thalamu s. The stable. Periventricular low attenuation change involving both cerebral hemispheres. This is st able. No mass. In particular, no abnormality seen within the right insular subcortical mcelroy matter. T he ventricles are normal for age. No evidence of midline shift, mass lesion, hemorrhage or acute inf arction. No extra-axial fluid collections are seen. POSTERIOR FOSSA: The cerebellum and brainstem are intact. The 4th ventricle is midline. The cerebellopontine angle i s unremarkable. EXTRACRANIAL: The visualized portion of the orbits is intact. SKULL: The calvaria is intact. No evidence of skull fracture. CONCLUSION: 1. No mass observed. 2. Atrophy. 3. Chronic small vessel ischemic change. 4. 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 Gianni Reza Jr., MD on February 20, 2017 at 23:59 Board Certified Radiologist. This report was verified electronically.
[2017-02-21] MEDS: CYCLOBENZAPRINE HCL 10 MG TAB PO PRN ×3 (00:47→21:11)
[2017-02-21] MEDS: ACETAMINOPHEN/HYDROcodone 325 MG/5 MG TAB PO PRN ×2 (01:20→02:33)
[2017-02-21] MEDS: CHLORHEXIDINE GLUCONATE 2 % 1 PACK (2 CLOTHS) TOP SCH (02:45)
[2017-02-21] MEDS: PHENYTOIN 50 MG CHEWABLE TAB PO SCH ×3 (06:04→21:13)
[2017-02-21] MEDS: ACETAMINOPHEN/HYDROcodone 325 MG/10 MG TAB PO PRN ×4 (06:08→23:54)
[2017-02-21 07:40] LABS: HEMATOCRIT 39.2 % (35.0-46.0); HEMOGLOBIN 12.9 GM/DL (11.6-15.3); MEAN CORPUSCULAR HEMOGLOBIN 29.7 PG (27.0-34.0); MEAN PLATELET VOLUME 10.8 FL (7.0-11.0); PLATELET COUNT 113 TH/MM3 (150-450); RED BLOOD COUNT 4.35 MIL/MM3 (4.00-5.30); WHITE BLOOD COUNT 4.4 TH/MM3 (4.0-11.0)
[2017-02-21] MEDS: INSULIN ASPART SUPPLEMENTAL SCALE SQ SCH ×4 (08:00→21:00)
[2017-02-21 08:08] LABS: ALBUMIN 2.7 GM/DL (3.4-5.0); BICARBONATE 30.4 MEQ/L (21.0-32.0); CALCIUM 9.6 MG/DL (8.5-10.1); CREATININE 0.59 MG/DL (0.50-1.00); DIRECT BILIRUBIN ADULT 0.1 MG/DL (0.0-0.2); MAGNESIUM 2.1 MG/DL (1.5-2.5)
[2017-02-21 08:10] LABS: INDIRECT BILIRUBIN 0.2 MG/DL (0.0-0.8); TOTAL BILIRUBIN ADULT 0.3 MG/DL (0.2-1.0); TOTAL PROTEIN 6.1 GM/DL (6.4-8.2)
[2017-02-21] MEDS: ALUMINUM/MAGNESIUM/SIMETH 30 ML CUP PO SCH ×4 (09:21→21:13)
[2017-02-21] MEDS: DOCUSATE SODIUM 50 MG/SENNA 8.6 MG TAB PO SCH (09:21)
[2017-02-21] MEDS: SODIUM CHLORIDE 0.9% FLUSH 10 ML FLUSH IV FLUSH SCH ×2 (09:21→21:21)
[2017-02-21] MEDS: CLOPIDOGREL 75 MG TAB PO SCH (09:22)
[2017-02-21] MEDS: levETIRAcetam 500 MG TAB PO SCH ×2 (09:22→21:11)
[2017-02-21] MEDS: PANTOPRAZOLE SOD 40 MG DELAYED RELEASE TAB PO SCH (09:23)
[2017-02-21] MEDS: hydrALAZINE HCL 10 MG TAB PO SCH ×3 (09:24→18:06)
[2017-02-21] MEDS: FUROSEMIDE 20 MG TAB PO SCH (09:24)
[2017-02-21] MEDS: ASPIRIN EC 81 MG TABEC PO SCH (09:25)
[2017-02-21] MEDS: SERTRALINE HCL 50 MG TAB PO SCH (09:26)
[2017-02-21] MEDS: CARVEDILOL 12.5 MG TAB PO SCH ×2 (09:27→21:11)
--- NOTE | 2017-02-21 13:33 | HHI.PR ---
Subjective Remarks Follow-up hypertensive urgency/abdominal pain 02/21/17-patient seen and examined, currently complain of abdominal pain however denies any nausea or vomiting. BP op Objective Vitals Vital Signs Date Time Temp Pulse Resp B/P (MAP) Pulse Ox O2 Delivery O2 Flow Rate FiO2 02/21/17 09:39 174/84 (114) 02/21/17 08:00 98.1 55 20 188/82 (117) 92 02/21/17 04:00 Nasal Cannula 2.00 02/21/17 04:00 98.3 61 18 154/93 (113) 91 02/21/17 04:00 60 02/21/17 00:00 Nasal Cannula 2.00 02/21/17 00:00 97.2 57 18 148/61 (90) 92 02/20/17 20:50 91 Nasal Cannula 2.00 02/20/17 20:00 98.3 63 19 140/74 (96) 91 02/20/17 19:49 63 02/20/17 18:26 Nasal Cannula 2.00 02/20/17 16:50 Nasal Cannula 2.00 02/20/17 14:51 98.4 62 20 158/77 (104) 90 02/20/17 14:01 62 21 156/95 (115) 02/20/17 14:01 62 02/20/17 14:00 63 02/20/17 14:00 63 25 I/O 02/20/17 02/20/17 02/20/17 02/21/17 02/21/17 02/21/17 07:00 15:00 23:00 07:00 15:00 23:00 Intake Total 250 ml 250 ml 100 ml Output Total 1800 ml Balance 250 ml 250 ml -1700 ml Intake Oral 0 ml IV Total 250 ml 250 ml 100 ml Output Urine Total 1800 ml # Voids 0 # Bowel Movements 0 0 Result Diagram: 02/21/17 0630 02/21/17 0630 Imaging Last Impressions Head CT 02/20/172199 Signed Impressions: Service Date/Time: Monday, February 20, 2017 23:49 - CONCLUSION: 1. No mass observed. 2. Atrophy. 3. Chronic small vessel ischemic change. 4. 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 Gianni Reza Jr., MD Chest X-Ray 02/19/17 1915 Signed Impressions: Service Date/Time: Sunday, February 19, 2017 19:22 - CONCLUSION: Right lung base atelectasis. Rosenda Sandoval MD Abdomen/Pelvis CT 02/19/17 1915 Signed Impressions: Service Date/Time: Sunday, February 19, 2017 20:31 - CONCLUSION: 1. Slight bibasilar atelectasis and/or infiltrate is seen and slight right middle lobe infiltrate not present on the prior CT angiogram from 01/2017. 2. Left adrenal adenoma and colonic diverticuli. Rosenda Sandoval MD Cervical Spine CT 02/19/17 0000 Signed Impressions: Service Date/Time: Sunday, February 19, 2017 20:26 - CONCLUSION: Degenerative spondylosis without any significant compromise to the thecal sac or the exiting nerve roots. Rosenda Sandoval MD Objective Remarks GENERAL: NAD SKIN: Warm and dry. HEAD: Normocephalic. EYES: No scleral icterus. No injection or drainage. NECK: Supple, trachea midline. No JVD or lymphadenopathy. CARDIOVASCULAR: Regular rate and rhythm without murmurs, gallops, or rubs. RESPIRATORY: Breath sounds equal bilaterally. No accessory muscle use. GASTROINTESTINAL: Abdomen soft, non-tender, nondistended. MUSCULOSKELETAL: No cyanosis, or edema. BACK: Nontender without obvious deformity. No CVA tenderness. A/P Problem List: (1) Hypertensive urgency ICD Code: I16.0 - Hypertensive urgency Status: Acute (2) Intractable pain ICD Code: R52 - Pain, unspecified (3) Thrombocytopenia ICD Code: D69.6 - Thrombocytopenia, unspecified (4) Brain mass ICD Code: G93.9 - Disorder of brain, unspecified (5) PNA (pneumonia) ICD Code: J18.9 - Pneumonia, unspecified organism (6) DM (diabetes mellitus) ICD Code: E11.9 - Type 2 diabetes mellitus without complications Assessment and Plan 71 year-old female with Hypertensive Urgency s/p Cardene drip. Currently on Coreg, hydralazine. Will increase Coreg 25 mg twice a day Intractable pain CT Abd/Pelvis w/ no acute intra-abdominal findings. Analgesics/antiemetics as needed. Consider MRI/MRA abdomen/pelvics if no improvement Continue PPI,Maalox. Brain mass Repeat Head 02/20/17 with no brain mass observed/seen CAP CT Abd/Pelvis w/ infiltrate, s/p Rocephin/Zithro in ER. continue w/ IV Abx. DM Sliding scale w/ Accu-Cheks. Continue to hold home . DVT Prophylaxis: JODY/Virgil Mendiola MD Feb 21, 2017 13:33
[2017-02-21] MEDS ORDERED: CARVEDILOL 12.5 MG TAB PO ONE (14:00)
[2017-02-21] MEDS: LISINOPRIL 20 MG TAB PO SCH (21:10)
[2017-02-21] MEDS: ATORVASTATIN 40 MG TAB PO SCH (21:11)
[2017-02-21] MEDS: AZITHROMYCIN INJ 500 MG in SODIUM CHLOR 0.9% 250 ML INJ 250 ML IV SCH (21:15)
[2017-02-21] MEDS: cefTRIAXone INJ 1,000 MG in SODIUM CHLORIDE 0.9% INJ 100 ML IV SCH (22:50)
[2017-02-22] VITALS (7 sets, daily range): BP systolic 136–193; BP diastolic 61–84; PULSE 51–59; RESP 16–20; TEMP 97.8–98.6; O2SAT 91–95
[2017-02-22] MEDS: CHLORHEXIDINE GLUCONATE 2 % 1 PACK (2 CLOTHS) TOP SCH (04:00)
[2017-02-22] MEDS: CYCLOBENZAPRINE HCL 10 MG TAB PO PRN (05:04)
[2017-02-22] MEDS: PHENYTOIN 50 MG CHEWABLE TAB PO SCH ×2 (05:16→13:59)
[2017-02-22] MEDS: ACETAMINOPHEN/HYDROcodone 325 MG/10 MG TAB PO PRN (06:31)
[2017-02-22] MEDS: INSULIN ASPART SUPPLEMENTAL SCALE SQ SCH ×3 (08:00→17:00)
[2017-02-22] MEDS: PANTOPRAZOLE SOD 40 MG DELAYED RELEASE TAB PO SCH (09:35)
[2017-02-22] MEDS: hydrALAZINE HCL 10 MG TAB PO SCH (09:35)
[2017-02-22] MEDS: SERTRALINE HCL 50 MG TAB PO SCH (09:35)
[2017-02-22] MEDS: ALUMINUM/MAGNESIUM/SIMETH 30 ML CUP PO SCH ×3 (09:35→17:53)
[2017-02-22] MEDS: levETIRAcetam 500 MG TAB PO SCH (09:36)
[2017-02-22] MEDS: ASPIRIN EC 81 MG TABEC PO SCH (09:36)
[2017-02-22] MEDS: FUROSEMIDE 20 MG TAB PO SCH (09:36)
[2017-02-22] MEDS: CLOPIDOGREL 75 MG TAB PO SCH (09:36)
[2017-02-22] MEDS: CARVEDILOL 12.5 MG TAB PO SCH (09:36)
[2017-02-22] MEDS: SODIUM CHLORIDE 0.9% FLUSH 10 ML FLUSH IV FLUSH SCH (09:37)
--- NOTE | 2017-02-22 11:13 | HHI.PR ---
Subjective Remarks Follow-up hypertensive urgency/abdominal pain 02/21/17-patient seen and examined, currently complain of abdominal pain however denies any nausea or vomiting. BP op 02/22/17-patient seen and examined; denies any abdominal pain, BP is up Objective Vitals Vital Signs Date Time Temp Pulse Resp B/P (MAP) Pulse Ox O2 Delivery O2 Flow Rate FiO2 02/22/17 08:30 Nasal Cannula 2.00 02/22/17 08:00 98.4 55 20 179/79 (112) 91 02/22/17 04:27 54 02/22/17 04:00 98.0 58 16 193/84 (120) 95 02/22/17 00:06 58 02/22/17 00:00 Nasal Cannula 2.00 02/22/17 00:00 98.5 59 18 179/77 (111) 93 02/21/17 20:03 57 02/21/17 20:00 Nasal Cannula 2.00 02/21/17 20:00 98.4 58 18 189/79 (115) 93 02/21/17 16:03 57 02/21/17 16:00 97.3 57 20 218/97 (137) 90 02/21/17 12:06 62 02/21/17 12:00 98.6 62 20 196/84 (121) 93 I/O 02/21/17 02/21/17 02/21/17 02/22/17 02/22/17 02/22/17 07:00 15:00 23:00 07:00 15:00 23:00 Intake Total 100 ml 120 ml Output Total 1800 ml 400 ml Balance -1700 ml 120 ml -400 ml Intake Oral 0 ml 120 ml IV Total 100 ml Output Urine Total 1800 ml 400 ml # Voids 3 # Bowel Movements 0 0 Result Diagram: 02/21/17 0630 02/21/17 0630 Imaging Last Impressions Head CT 02/20/170 Signed Impressions: Service Date/Time: Monday, February 20, 2017 23:49 - CONCLUSION: 1. No mass observed. 2. Atrophy. 3. Chronic small vessel ischemic change. 4. 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 Gianni Reza Jr., MD Chest X-Ray 02/19/17 8078 Signed Impressions: Service Date/Time: Sunday, February 19, 2017 19:22 - CONCLUSION: Right lung base atelectasis. Rosenda Sandoval MD Abdomen/Pelvis CT 02/19/17 1915 Signed Impressions: Service Date/Time: Sunday, February 19, 2017 20:31 - CONCLUSION: 1. Slight bibasilar atelectasis and/or infiltrate is seen and slight right middle lobe infiltrate not present on the prior CT angiogram from 01/2017. 2. Left adrenal adenoma and colonic diverticuli. Rosenda Sandoval MD Cervical Spine CT 02/19/17 0000 Signed Impressions: Service Date/Time: Sunday, February 19, 2017 20:26 - CONCLUSION: Degenerative spondylosis without any significant compromise to the thecal sac or the exiting nerve roots. Rosenda Sandoval MD Objective Remarks GENERAL: NAD SKIN: Warm and dry. HEAD: Normocephalic. EYES: No scleral icterus. No injection or drainage. NECK: Supple, trachea midline. No JVD or lymphadenopathy. CARDIOVASCULAR: Regular rate and rhythm without murmurs, gallops, or rubs. RESPIRATORY: Breath sounds equal bilaterally. No accessory muscle use. GASTROINTESTINAL: Abdomen soft, non-tender, nondistended. MUSCULOSKELETAL: No cyanosis, or edema. BACK: Nontender without obvious deformity. No CVA tenderness. Procedures None A/P Problem List: (1) Hypertensive urgency ICD Code: I16.0 - Hypertensive urgency Status: Acute (2) Intractable pain ICD Code: R52 - Pain, unspecified (3) Thrombocytopenia ICD Code: D69.6 - Thrombocytopenia, unspecified (4) Brain mass ICD Code: G93.9 - Disorder of brain, unspecified (5) PNA (pneumonia) ICD Code: J18.9 - Pneumonia, unspecified organism (6) DM (diabetes mellitus) ICD Code: E11.9 - Type 2 diabetes mellitus without complications Assessment and Plan 71 year-old female with Hypertensive Urgency s/p Cardene drip. Currently on Coreg, hydralazine. Will increase Hydralazine 25 mg TID Intractable pain CT Abd/Pelvis w/ no acute intra-abdominal findings. Analgesics/antiemetics as needed. Consider MRI/MRA abdomen/pelvics if no improvement Continue PPI,Maalox. Brain mass Repeat Head 02/20/17 with no brain mass observed/seen CAP CT Abd/Pelvis w/ infiltrate, s/p Rocephin/Zithro in ER. will switch to PO Zithromax DM Sliding scale w/ Accu-Cheks. Continue to hold home . DVT Prophylaxis: JODY/Virgil Mendiola MD Feb 22, 2017 11:13
[2017-02-22] MEDS ORDERED: CARV12.5 PO (11:19)
[2017-02-22] MEDS ORDERED: HYDR-3799 PO (11:19)
[2017-02-22] MEDS ORDERED: LISI-515 PO (11:19)
[2017-02-22] MEDS ORDERED: AZIT250T3 PO (11:23)
[2017-02-22] MEDS ORDERED: AZITHROMYCIN 250 MG TAB PO SCH (12:00)
[2017-02-22] MEDS: cloNIDine HCL 0.2 MG TAB PO SCH ×2 (13:59→17:52)
[2017-02-22] MEDS ORDERED: hydrALAZINE HCL 25 MG TAB PO SCH (14:00)
--- NOTE | 2017-02-22 15:49 | HHI.DS ---
Discharge Summary Admission Date Feb 19, 2017 at 22:01 Discharge Date: Feb 22, 2017 Admitting Diagnosis hypertensive urgency, abdominal pain, pneumonia (1) Hypertensive urgency ICD Code: I16.0 - Hypertensive urgency Status: Acute (2) Intractable pain ICD Code: R52 - Pain, unspecified (3) Thrombocytopenia ICD Code: D69.6 - Thrombocytopenia, unspecified (4) Brain mass ICD Code: G93.9 - Disorder of brain, unspecified (5) PNA (pneumonia) ICD Code: J18.9 - Pneumonia, unspecified organism (6) DM (diabetes mellitus) ICD Code: E11.9 - Type 2 diabetes mellitus without complications Procedures None Brief History - From Admission This is a 71-year-old female with a PMH of Anxiety, Depression, HTN, Hyperlipidemia, COPD, DM, Chronic Back Pain and Tobacco Abuse who is brought to the ER from [facility] secondary riley/o severe abdominal pain in addition to headache. Pt poor historian, unable to obtain adequate history, however she denies nausea , vomiting or diarrhea. Son states she takes Oxycodone 5mg as needed, however believes she hasn't gotten any from the [facility] recently. Headache is pressure-like , mostly frontal, constant, 10/10. Denies vision changes. On arrival, BP 250/ 116, HR 84, O2 sat 89% on RA, afebrile. CBC essentially unremarkable except for platelets 133, previously 125 on 1229 and 17. Chemistry essentially unremarkable. Troponin negative. INR 1.0. A negative. CXR with right lung atelectasis. CT Abd/Pelvis w/ basilar atelectasis or infiltrate and slight right middle lobe infiltrate not present on previous imaging. CT Head with chronic and small vessel ischemic changes, probable artifact however mass on right side cannot be excluded, follow-up CT recommended in 24-48 hours. S/p multiple doses of antihypertensives in the ER, BP remains >200. CBC/BMP: 02/21/17 0630 02/21/17 0630 Significant Findings Laboratory Tests Test 02/19/17 19:15 02/19/17 19:30 02/19/17 20:10 02/19/17 23:48 Platelet Count 133 TH/MM3 (150-450) Mean Platelet Volume 11.1 FL (7.0-11.0) Neutrophils (%) (Auto) 83.0 % (16.0-70.0) Lymphocytes (%) (Auto) 5.1 % (9.0-44.0) Neutrophils # (Auto) 8.4 TH/MM3 (1.8-7.7) Lymphocytes # (Auto) 0.5 TH/MM3 (1.0-4.8) Prothrombin Time 9.7 SEC (9.8-11.6) Random Glucose 154 MG/DL (74-106) Albumin 3.3 GM/DL (3.4-5.0) Aspartate Amino Transf (AST/SGOT) 45 U/L (15-37) Estimat Glomerular Filtration Rate 55 ML/MIN (>89) Troponin I LESS THAN 0.02 NG/ML Urine Protein 30 mg/dL (NEG-TRACE) Urine Bacteria RARE /hpf (NONE) Urine Mucus FEW /lpf (OCC) Levetiracetam (Keppra) Level 5.4 mcg/mL (12.0 - 46.0) Test 02/20/17 07:42 02/21/17 06:30 Platelet Count 121 TH/MM3 (150-450) 113 TH/MM3 (150-450) Mean Platelet Volume 11.8 FL (7.0-11.0) Neutrophils (%) (Auto) 72.7 % (16.0-70.0) Monocytes (%) (Auto) 11.5 % (0.0-8.0) Eosinophils (%) (Auto) 4.6 % (0.0-4.0) Lymphocytes # (Auto) 0.7 TH/MM3 (1.0-4.8) Random Glucose 113 MG/DL (74-106) 124 MG/DL (74-106) Albumin 2.9 GM/DL (3.4-5.0) 2.7 GM/DL (3.4-5.0) Total Protein 6.1 GM/DL (6.4-8.2) Aspartate Amino Transf (AST/SGOT) 53 U/L (15-37) Alanine Aminotransferase (ALT/SGPT) 61 U/L (10-53) Anion Gap 4 MEQ/L (5-15) Imaging Last Impressions Head CT 02/20/17 2200 Signed Impressions: Service Date/Time: Monday, February 20, 2017 23:49 - CONCLUSION: 1. No mass observed. 2. Atrophy. 3. Chronic small vessel ischemic change. 4. 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 Gianni Reza Jr., MD Chest X-Ray 02/19/171914 Signed Impressions: Service Date/Time: Sunday, February 19, 2017 19:22 - CONCLUSION: Right lung base atelectasis. Rosenda Sandoval MD Abdomen/Pelvis CT 02/19/171914 Signed Impressions: Service Date/Time: Sunday, February 19, 2017 20:31 - CONCLUSION: 1. Slight bibasilar atelectasis and/or infiltrate is seen and slight right middle lobe infiltrate not present on the prior CT angiogram from 01/2017. 2. Left adrenal adenoma and colonic diverticuli. Rosenda Sandoval MD Cervical Spine CT 02/19/17 0000 Signed Impressions: Service Date/Time: Sunday, February 19, 2017 20:26 - CONCLUSION: Degenerative spondylosis without any significant compromise to the thecal sac or the exiting nerve roots. Rosenda Sandoval MD PE at Discharge GENERAL: NAD SKIN: Warm and dry. HEAD: Normocephalic. EYES: No scleral icterus. No injection or drainage. NECK: Supple, trachea midline. No JVD or lymphadenopathy. CARDIOVASCULAR: Regular rate and rhythm without murmurs, gallops, or rubs. RESPIRATORY: Breath sounds equal bilaterally. No accessory muscle use. GASTROINTESTINAL: Abdomen soft, non-tender, nondistended. MUSCULOSKELETAL: No cyanosis, or edema. BACK: Nontender without obvious deformity. No CVA tenderness. Hospital Course While in the hospital, patient was treated for: Hypertensive Urgency s/p Cardene drip. She was started back on her home medications which were adjusted accordingly ; Coreg, hydralazine. Intractable pain CT Abd/Pelvis w/ no acute intra-abdominal findings. Analgesics/antiemetics as needed. Improved with PPI,Maalox. Brain mass Repeat Head 02/20/17 with no brain mass observed/seen CAP CT Abd/Pelvis w/ infiltrate, s/p Rocephin/Zithro in ER the started on PO Zithromax DM Sliding scale w/ Accu-Cheks. Patient to resume Januvia upon discharge DVT Prophylaxis: SCD/Teds Pt Condition on Discharge: Stable Discharge Disposition: Discharge Home Discharge Time: <= 30 minutes Discharge Instructions DIET: Follow Instructions for: Diabetic Diet Activities you can perform: Regular-No Restrictions Follow up Referrals: PCP Follow-up - 1 Week New Medications: Azithromycin (Azithromycin) 250 Mg Tab 500 MG PO DAILY for Infection, #5 TAB Carvedilol (Coreg) 12.5 Mg Tab 25 MG PO BID for Blood Pressure Management, #60 TAB 3 Refills Hydralazine HCl (Hydralazine HCl) 25 Mg Tablet 25 MG PO Q8HR for Blood Pressure Management, #90 MG 3 Refills Lisinopril (Lisinopril) 20 Mg Tab 40 MG PO HS for Blood Pressure Management, #30 TAB Continued Medications: Acetaminophen (Tylenol) 325 Mg Tab 325 MG PO Q4H PRN for PAIN SCALE 1 TO 5, TAB [address] (Aspirin Adult Low Strength) 81 Mg Tabdr 81 MG PO DAILY, TAB Atorvastatin (Atorvastatin) 40 Mg Tab 40 MG PO HS for stroke, #30 TAB Bisacodyl Supp (Dulcolax Supp) 10 Mg Supp 10 MG RECTAL PRN for CONSTIPATION, #12 SUPP 0 Refills Clonidine (Clonidine) 0.2 Mg Tab 0.2 MG PO Q6HR for Blood Pressure Management, #60 TAB 0 Refills Clopidogrel (Plavix) 75 Mg Tab 75 MG PO DAILY for Blood Clot Prevention, #30 TAB 0 Refills Cyclobenzaprine (Flexeril) 10 Mg Tab 5 MG PO Q8H PRN for muscle cramps, #90 TAB Furosemide (Furosemide) 20 Mg Tab 20 MG PO DAILY, #30 TAB 0 Refills Levetiracetam (Keppra) 500 Mg Tab 500 MG PO Q12HR for Seizure Control, #60 TAB Nitroglycerin SL (Nitrostat SL) 0.4 Mg Subl 0.4 MG SL DIRECTED PRN for CHEST PAIN, #100 TAB.SL 0 Refills 1 tablet under the tongue as needed for chest pain. Repeat every 5 minutes for a total of 3 DOSES or call 911 if NO relief. Omeprazole (Omeprazole) 20 Mg Tab 20 MG PO DAILY, #30 TAB 0 Refills Phenytoin Chew (Dilantin Infatabs) 50 Mg Chw 150 MG PO Q8HR for Seizure Control, #90 EA Potassium Chloride ER (Potassium Chloride ER) 10 Meq Tab 10 MEQ PO DAILY for Electrolyte Replacement, #30 TAB 0 Refills Sertraline (Sertraline) 25 Mg Tab 25 MG PO DAILY, #30 TAB 0 Refills Sitagliptin (Januvia) 100 Mg Tab 100 MG PO DAILY for Blood Sugar Management, #30 TAB 0 Refills [Albuterol Neb] () 2.5 MG/3 ML NEBU 2.5 MG NEB Q4HR NEB PRN for SOB/WHEEZING [Budeson-Formot 160-4.5 Mcg Inh] () 60 PUFF AERO 2 PUFF INH Q12HR for chronic bronchitis, #1 INHALER Discontinued Medications: Carvedilol (Carvedilol) 12.5 Mg Tab 12.5 MG PO BID, #60 TAB 0 Refills Hydralazine HCl (Hydralazine HCl) 25 Mg Tablet 10 MG PO TID for Blood Pressure Management, #90 TAB 0 Refills Lisinopril (Lisinopril) 40 Mg Tab 40 MG PO HS for Blood Pressure Management, #30 TAB 0 Refills Nitrofurantoin Monohydrate Macrocrystals (Macrobid) 100 Mg Cap 100 MG PO BID for Infection for 10 Days, #20 CAP 0 Refills Oxycodone (Oxycodone) 5 Mg Tab 5 MG PO Q6HR ALT NEB PRN for arthritis pain 7-10, #90 TAB Prednisone (48) 10 mg tab Dose Pack (Prednisone (48) 10 mg tab Dose Pack) 10 Mg Dspk 10 MG PO DIRECTED for Inflammation, #1 DSPK 0 Refills Virgil Sullivan MD Feb 22, 2017 15:49
== END 2017-02-22 19:05 | disposition home or self-care (01) | DRG 304 ==
LOC: NEPC 19:01 → NEDA 22:01 → HIME 23:45 → N04B 02-20 14:46
PROVIDERS: ADMIT Hospitalist; ATTEND Hospitalist
DX: I16.0 Hypertensive urgency (principal); J18.9 Pneumonia, unspecified organism; D69.6 Thrombocytopenia, unspecified; J44.0 Chronic obstructive pulmonary disease with (acute) lower respiratory infection; G93.9 Disorder of brain, unspecified; E11.9 Type 2 diabetes mellitus without complications; I10 Essential (primary) hypertension; F41.9 Anxiety disorder, unspecified; F32.9 Major depressive disorder, single episode, unspecified; I51.7 Cardiomegaly; E78.5 Hyperlipidemia, unspecified; M54.9 Dorsalgia, unspecified; G89.29 Other chronic pain; F17.210 Nicotine dependence, cigarettes, uncomplicated; R10.84 Generalized abdominal pain; Z86.73 Personal history of transient ischemic attack (TIA), and cerebral infarction without residual deficits
CPT/HCPCS: 70450; 71010; 72125; 74177; 80048; 80053; 80076; 80177; 80185; 81001; 82550; 82948; 83690; 83735; 84484; 85025; 85027; 85610; 85730; 87641; 93005; 96374; 96375; 96376; J0360; J0456; J0696; J1170; J2270; J2405; J7050; Q9967

== ENCOUNTER 2017-03-24 23:55 | Emergency (ER) | payer OTHER, MEDICAID ==
[~2017-03-24 23:55] MED LIST changes: +AZIT250T3 PO; +CARV12.5 PO; -CARV12.52 PO; -CARV6.25 PO; -FURO1TAB62 PO; +LISI-515 PO; -LISI40TA PO; -MACR100C2 PO; -OXYC-392 PO; -PRED10PA2 PO
[2017-03-24 23:59] VITALS: BP 262/128; PULSE 82; RESP 18; TEMP 97.8; O2SAT 90
[2017-03-25] MEDS ORDERED: oxyCODONE/ACETAMINOPHEN 5 MG/325 MG TAB PO ONE (00:45)
--- NOTE | 2017-03-25 00:45 | PD ---
HPI Chief Complaint: Musculoskeletal Complaint Time Seen by Provider: 00:33 Travel History International Travel<30 days: No Contact w/Intl Traveler<30days: No Traveled to known affect area: No History of Present Illness HPI Patient is a 72-year-old female presents emergency department for evaluation of left hip pain radiating down her left leg. Patient states she has had this before, no trauma, for the past few days, gradually worsening. No associated numbness tingling in her saddle area or groin area, no weakness. States it hurts worse when she stands up. PFSH Past Medical History Hx Anticoagulant Therapy: Yes Arthritis: Yes Asthma: Yes Blood Disorders: No Anxiety: Yes Depression: No Heart Rhythm Problems: No Cancer: No Cardiovascular Problems: Yes High Cholesterol: Yes Chemotherapy: No Chest Pain: No Congestive Heart Failure: No COPD: Yes Cerebrovascular Accident: Yes Diabetes: Yes Patient Takes Glucophage: No Diminished Hearing: No Endocrine: Yes Gastrointestinal Disorders: Yes (DIVERTICULOSIS) GERD: Yes Genitourinary: No Headaches: Yes Hepatitis: No Hiatal Hernia: No Hypertension: Yes Immune Disorder: No Implanted Vascular Access Dvce: No Musculoskeletal: Yes Neurologic: No Psychiatric: Yes Reproductive: No Respiratory: Yes Integumentary: Yes (L breast incision - healed with some scab) Immunizations Current: Yes Migraines: No Myocardial Infarction: Yes Radiation Therapy: No Seizures: No Sleep Apnea: No Thyroid Disease: Yes Ulcer: No ?: Not Menopausal: Yes : 2 Para: 2 Past Surgical History Abdominal Surgery: No AICD: No Appendectomy: No Arteriovenous Shunt: No Cholecystectomy: No Endocrine Surgery: Yes (THYROID SX) Gynecologic Surgery: Yes Hysterectomy: Yes Insulin Pump: No Joint Replacement: No Neurologic Surgery: Yes (aneursym clipped (via neck)) Pacemaker: No Thoracic Surgery: Yes (back surgery) Tonsillectomy: Yes Other Surgery: Yes Social History Alcohol Use: No Tobacco Use: Yes (PACK A DAY ) Substance Use: No Allergies-Medications (Allergen,Severity, Reaction): Coded Allergies: grass pollen (Unverified Allergy, Severe, 2/18) house dust (Unverified Allergy, Severe, 2//18) ipratropium (Unverified Allergy, Severe, 2//18) egg (Unverified Allergy, Mild, 2/18) codeine (Unverified Adverse Reaction, Intermediate, NAUSEA, 03/25/17) Reported Meds & Prescriptions Reported Meds & Active Scripts Active Ultram (Tramadol HCl) 50 Mg Tab 50 Mg PO Q6H PRN Azithromycin 250 Mg Tab 500 Mg PO DAILY Lisinopril 20 Mg Tab 40 Mg PO HS Coreg (Carvedilol) 12.5 Mg Tab 25 Mg PO BID Hydralazine HCl 25 Mg Tablet 25 Mg PO Q8HR Dilantin Infatabs (Phenytoin) 50 Mg Chw 150 Mg PO Q8HR [Budeson-Formot 160-4.5 Mcg Inh] 60 PUFF Aero 2 Puff INH Q12HR Keppra (Levetiracetam) 500 Mg Tab 500 Mg PO Q12HR Flexeril (Cyclobenzaprine HCl) 10 Mg Tab 5 Mg PO Q8H PRN [Albuterol Neb] 2.5 MG/3 ML Nebu 2.5 Mg NEB Q4HR NEB PRN Nifedipine 10 Mg Cap 10 Mg PO TID Atorvastatin (Atorvastatin Calcium) 40 Mg Tab 40 Mg PO HS Potassium Chloride ER (Potassium Chloride) 10 Meq Tab 10 Meq PO DAILY Reported Tylenol (Acetaminophen) 325 Mg Tab 325 Mg PO Q4H PRN Dulcolax Supp (Bisacodyl) 10 Mg Supp 10 Mg RECTAL PRN Clonidine (Clonidine HCl) 0.2 Mg Tab 0.2 Mg PO Q6HR Clonidine (Clonidine HCl) 0.1 Mg Tab 0.1 Mg PO Q8HR PRN Nitrostat SL (Nitroglycerin) 0.4 Mg Subl 0.4 Mg SL DIRECTED PRN 1 tablet under the tongue as needed for chest pain. Repeat every 5 minutes for a total of 3 DOSES or call 911 if NO relief. Furosemide 20 Mg Tab 20 Mg PO DAILY Omeprazole 20 Mg Tab 20 Mg PO DAILY Aspirin Adult Low Strength (Aspirin) 81 Mg Tabdr 81 Mg PO DAILY Sertraline (Sertraline HCl) 25 Mg Tab 25 Mg PO DAILY Januvia (Sitagliptin Phosphate) 100 Mg Tab 100 Mg PO DAILY Plavix (Clopidogrel Bisulfate) 75 Mg Tab 75 Mg PO DAILY Review of Systems Except as stated in HPI: all other systems reviewed are Neg Physical Exam Narrative GENERAL: Well-nourished, well-developed patient. SKIN: Focused skin assessment warm/dry. HEAD: Normocephalic. EYES: No scleral icterus. No injection or drainage. NECK: Supple, trachea midline. No JVD or lymphadenopathy. CARDIOVASCULAR: Regular rate and rhythm without murmurs, gallops, or rubs. RESPIRATORY: Breath sounds equal bilaterally. No accessory muscle use. GASTROINTESTINAL: Abdomen soft, non-tender, nondistended. MUSCULOSKELETAL: No cyanosis, or edema. No midline CT or L-spine tenderness, pelvis stable, no hip tenderness, full nontender range of motion of all extremities while in the supine position, she does have some tenderness when she stands but is able to walk. She has a positive straight leg raise on the left negative on the right. Pulse motor and sensory intact distally in all 4 extremities BACK: Nontender without obvious deformity. No CVA tenderness. Data Data Last Documented VS Orders Orders Spine, Lumbar - Ltd (Ap & Lat) (03/25/17 ) Oxycodone-Acetamin 5-325 Mg (Percocet (03/25/17 00:45) Urinalysis - C+S If Indicated (03/25/17 01:14) Ed Discharge Order (03/25/17 03:17) Labs Laboratory Tests Test 03/25/17 02:56 Urine Color LIGHT-YELLOW Urine Turbidity CLEAR Urine pH 6.5 Urine Specific Wiley 1.006 Urine Protein 100 mg/dL Urine Glucose (UA) TRACE mg/dL Urine Ketones NEG mg/dL Urine Occult Blood NEG Urine Nitrite NEG Urine Bilirubin NEG Urine Urobilinogen LESS THAN 2.0 MG/DL Urine Leukocyte Esterase NEG Urine RBC 1 /hpf Urine Squamous Epithelial Cells <1 /hpf Urine Bacteria RARE /hpf Microscopic Urinalysis Comment CULT NOT INDICATED MDM Medical Decision Making Medical Screen Exam Complete: Yes Emergency Medical Condition: Yes Differential Diagnosis Sciatica, degenerative disc disease, occult fracture Narrative Course Last 24 hours Impressions Lumbar Spine X-Ray 03/25/17 0000 Signed Impressions: Service Date/Time: Saturday, March 25, 2017 01:21 - CONCLUSION: Degenerative changes. Atherosclerosis. Jaxson Montana MD Discussed results with the patient, no fractures, discussed symptomatic management need for follow-up with primary care physician for consideration of an MRI if the symptoms do not resolve, discussed return to ED criteria and red flag signs symptoms or cauda equina. She is stable for discharge Diagnosis Primary Impression: Sciatica, left side Referrals: [facility] Med/Other Pt SpecificInfo: Prescription(s) given Scripts Tramadol (Ultram) 50 Mg Tab 50 MG PO Q6H Y for PAIN, #10 TAB 0 Refills Prov: Brandan Dietrich MD 03/25/17 Disposition: 01 DISCHARGE HOME Condition: Stable Brandan Dietrich MD Mar 25, 2017 00:45
--- NOTE | 2017-03-25 01:56 | RADRPT ---
EXAM DATE/TIME: 03/25/2017 01:21 [place] COMPARISON: No previous studies available for comparison. INDICATIONS : Chronic back pain. MEDICAL HISTORY : Cerebrovascular disease. Cardiovascular disease. Hypertension. Diabetes SURGICAL HISTORY : Hysterectomy. ENCOUNTER: Initial ACUITY: >1 year PAIN SCORE: 10/10 LOCATION: Bilateral Back FINDINGS: Two view examination was performed. There are five non-rib bearing vertebral bodies. The vertebral bodies are in normal alignment without evidence of subluxation or scoliosis. The disc spaces are meenakshi ntained. The pedicles are intact. Bony mineralization is normal. No fracture is identified. Vascul ar stents overlie the upper abdomen. Surgical clips are seen in the right upper quadrant. There are d egenerative changes of the spine with multilevel osteophytosis. Vacuum disc phenomenon at L4-5 and L5 -S1 with moderate disc space narrowing L4-5 and L5-S1. Grade one anterolisthesis of L4 on L5. Atheros clerotic calcifications are seen. CONCLUSION: Degenerative changes. Atherosclerosis. Jaxson Montana MD on March 25, 2017 at 1:53 Board Certified Radiologist. This report was verified electronically.
[2017-03-25 03:11] LABS: BACTERIA, URINE RARE /hpf; BILIRUBIN, URINE NEG (NEG); BLOOD, URINE NEG (NEG); GLUCOSE,URINE TRACE mg/dL (NEG); KETONE, URINE NEG (NEG); NITRITE,URINE NEG (NEG); PH, URINE 6.5 (5.0-8.5); SQUAMOUS EPITHELIAL CELL URINE <1 /hpf (0-5); URINE COLOR LIGHT-YELLOW (YELLW/STRAW); URINE LEUKOCYTE ESTERASE NEG (NEG)
[2017-03-25] MEDS ORDERED: TRAM50 PO (03:19)
== END 2017-03-25 03:57 | disposition home or self-care (01) ==
LOC: NEPE 23:55
DX: M54.32 Sciatica, left side (principal); J44.9 Chronic obstructive pulmonary disease, unspecified; E11.9 Type 2 diabetes mellitus without complications; I10 Essential (primary) hypertension; K21.9 Gastro-esophageal reflux disease without esophagitis; I25.2 Old myocardial infarction; E78.00 Pure hypercholesterolemia, unspecified; F17.210 Nicotine dependence, cigarettes, uncomplicated; Z86.73 Personal history of transient ischemic attack (TIA), and cerebral infarction without residual deficits; Z79.82 Long term (current) use of aspirin
CPT/HCPCS: 72100; 81001; 99284